=== PATIENT | male | born 1975 | race Caucasian/White ===

== ENCOUNTER 2023-03-03 21:11 | Observation (INO) | payer OTHER ==
--- NOTE | 2023-03-03 22:30 | ED ---
General Adult HPI - General Chief complaint: Psychiatric Symptoms Stated complaint: Petition Time Seen by Provider: 03/03/23 21:19 Source: patient, RN/MD Mode of arrival: ambulatory Limitations: no limitations - History of Present Illness Initial comments: Dictation was produced using [employer] dictation software. please excuse any grammatical, word or spelling errors. Chief Complaint: 47-year-old male presents to emergency department with suicidal ideation History of Present Illness: 47-year-old male presents emergency department for suicidal ideation. States that he stress of late. Patient brought in by EMS. Patient is a daily alcoholic. States that he drinks everyday however refuses to specify out much. Patient reports having had alcohol withdrawals in the past. States it is stressed out because of life. The ROS documented in this emergency department record has been reviewed and confirmed by me. Those systems with pertinent positive or negative responses have been documented in the HPI. All other systems are other negative and/or noncontributory. - Related Data Allergies Allergy/AdvReac Type Severity Reaction Status Date / Time No Known Allergies Allergy Verified 03/03/23 21:14 Review of Systems ROS Statement: Those systems with pertinent positive or pertinent negative responses have been documented in the HPI. ROS Other: All systems not noted in ROS Statement are negative. Past Medical History Past Medical History: No Reported History History of Any Multi-Drug Resistant Organisms: None Reported Additional Past Surgical History / Comment(s): neck Past Psychological History: Anxiety Smoking Status: Current every day smoker Past Alcohol Use History: Daily, Heavy Past Drug Use History: None Reported General Exam - General Exam Comments Initial Comments: PHYSICAL EXAM: General Impression: Alert and oriented x3, not in acute distress HEENT: Normocephalic atraumatic, extra-ocular movements intact, pupils equal and reactive to light bilaterally, mucous membranes moist. Cardiovascular: Heart regular rate and rhythm Chest: Able to complete full sentences, no retractions, no tachypnea Abdomen: abdomen soft, non-tender, non-distended, no organomegaly Musculoskeletal: Pulses present and equal in all extremities, no peripheral edema Motor: no focal deficits noted Neurological: CN II-XII grossly intact, no focal motor or sensory deficits noted Skin: Intact with no visualized rashes Psych: Flat affect Limitations: no limitations Course Vital Signs 03/03/23 21:14 Temperature 97.5 F L Pulse Rate 78 Respiratory 16 Rate Blood Pressure 136/64 O2 Sat by Pulse 97 Oximetry Medical Decision Making - Medical Decision Making Was pt. sent in by a medical professional or institution (, [facility], CREDIT CONTROLLER, urgent care, hospital, or residential...) When possible be specific @ -No Did you speak to anyone other than the patient for history (EMS, parent, family, police, friend...)? What history was obtained from this source @ -No Did you review nursing and triage notes (agree or disagree)? Why? @ -I reviewed and agree with nursing and triage notes Were old charts reviewed (outside hosp., previous admission, EMS record, old EKG, old radiological studies, urgent care reports/EKG's, residential records)? Report findings @ -No old charts were reviewed Differential Diagnosis (chest pain, altered mental status, abdominal pain women, abdominal pain men, vaginal bleeding, musculoskeletal, weakness, fever, dyspnea, syncope, headache, dizziness, GI bleed, back pain, seizure, CVA, palpatations, mental health)? @ -Differential Mental Health: Depression, anxiety, bipolar, psychosis, schizophrenia, borderline personality, situational depression, adjustment disorder, behavioral disorder, brain tumor, malingering, substance abuse, encephalopathy, medication reaction, dementia, hypothyroidism, degenerative neurologic disorder, lupus.... This is not meant to be all-inclusive list EKG interpreted by me (3pts min.). @ -None done X-rays interpreted by me (1pt min.). @ -None done CT interpreted by me (1pt min.). @ -None done U/S interpreted by me (1pt. min.). @ -None done What testing was considered but not performed or refused? (CT, X-rays, U/S, labs)? Why? @ -None What meds were considered but not given or refused? Why? @ -None Did you discuss the management of the patient with other professionals (professionals i.e. GAURAV Andre, CREDIT CONTROLLER, lab, RT, psych nurse, social work nurse, second chef, teacher, zoology technical officer, case preparer and liner)? Give summary @ -Case discussed with [facility] hospitalist group for admission Was smoking cessation discussed for >3mins.? @ -No Was critical care preformed (if so, how long)? @ -No Were there social determinants of health that impacted care today? How? (Homelessness, low income, unemployed, alcoholism, drug addiction, transportation, low edu. Level, literacy, decrease access to med. care, long term, rehab)? @ -Alcoholism Was there de-escalation of care discussed even if they declined (Discuss DNR or withdrawal of care, Hospice)? DNR status @ -No What co-morbidities impacted this encounter? (DM, HTN, Smoking, COPD, CAD, Cancer, CVA, ARF, Chemo, Hep., AIDS, mental health diagnosis, sleep apnea, m orbid obesity)? @ -None Was patient admitted / discharged? Hospital course, mention meds given and route, prescriptions, significant lab abnormalities, going to OR and other pertinent info. @ -47 y Old intoxicated male presents to the ER for suicidal ideation. Alcohol level is 423. Patient will be admitted for EtOH intoxication. Psychiatry consulted for suicidal ideation. Undiagnosed new problem with uncertain prognosis? @ -No Drug Therapy requiring intensive monitoring for toxicity (Heparin, Nitro, Insulin, Cardizem)? @ -No Were any procedures done? @ -No Diagnosis/symptom? Acute, or Chronic, or Acute on Chronic? Uncomplicated (without systemic symptoms) or Complicated (systemic symptoms)? @ -1. Suicidal ideation, 2. Alcohol intoxication Side effects of treatment? @ -No Exacerbation, Progression, or Severe Exacerbation? @ -No Poses a threat to life or bodily function? How? (Chest pain, [place], [place], pneumonia, PE, COPD, DKA, ARF, appy, cholecystitis, CVA, Diverticulitis, Homicidal, Suicidal, threat to staff... and all critical care pts) @ -yes - Lab Data Result diagrams: 03/03/23 23:06 03/03/23 23:06 Lab Results 03/03/23 03/03/23 Range/Units 23:06 23:06 WBC 9.3 (3.8-10.6) k/uL RBC 4.73 (4.30-5.90) m/uL Hgb 14.5 (13.0-17.5) gm/dL Hct 43.5 (39.0-53.0) % MCV 92.0 (80.0-100.0) fL MCH 30.7 (25.0-35.0) pg MCHC 33.3 (31.0-37.0) g/dL RDW 12.9 (11.5-15.5) % Plt Count 325 (150-450) k/uL MPV 6.7 Neutrophils % 43 % Lymphocytes % 47 % Monocytes % 4 % Eosinophils % 4 % Basophils % 1 % Neutrophils # 4.0 (1.3-7.7) k/uL Lymphocytes # 4.4 (1.0-4.8) k/uL Monocytes # 0.3 (0-1.0) k/uL Eosinophils # 0.4 (0-0.7) k/uL Basophils # 0.1 (0-0.2) k/uL Sodium 147 H (137-145) mmol/L Potassium 3.9 (3.5-5.1) mmol/L Chloride 112 H (98-107) mmol/L Carbon Dioxide 22 (22-30) mmol/L Anion Gap 13 mmol/L BUN 11 (9-20) mg/dL Creatinine 0.90 (0.66-1.25) mg/dL Est GFR (CKD-EPI)AfAm >90 (>60 ml/min/1.73 sqM) Est GFR (CKD-EPI)NonAf >90 (>60 ml/min/1.73 sqM) Glucose 101 H (74-99) mg/dL Calcium 8.6 (8.4-10.2) mg/dL Serum Alcohol 423 H* mg/dL Disposition Clinical Impression: Suicidal ideation, Alcohol intoxication Disposition: ADMITTED IP TO THIS [facility] Condition: Fair Referrals: Nonstaff,Physician [Primary Care Provider] - 1-2 days Decision Time: 02:00
[2023-03-03 23:37] LABS: Basophils # (A) 0.1 k/uL (0-0.2); Basophils % (A) 1 %; Eosinophils # (A) 0.4 k/uL (0-0.7); Eosinophils % (A) 4 %; HCT 43.5 % (39.0-53.0); HGB 14.5 gm/dL (13.0-17.5); Lymphocytes # (A) 4.4 k/uL (1.0-4.8); Lymphocytes % (A) 47 %; MCH 30.7 pg (25.0-35.0); MCHC 33.3 g/dL (31.0-37.0); Mean Platelet Volume 6.7; Monocytes # (A) 0.3 k/uL (0-1.0); Monocytes % (A) 4 %; Neutrophils % (A) 43 %; Platelet Count 325 k/uL (150-450); RBC 4.73 m/uL (4.30-5.90); RDW 12.9 % (11.5-15.5); WBC 9.3 k/uL (3.8-10.6)
[2023-03-03 23:48] LABS: African American GFR (CKD) >90 (>60 ml/min/1.73 sqM); Anion Gap 13 mmol/L; Blood Urea Nitrogen 11 mg/dL (9-20); Calcium 8.6 mg/dL (8.4-10.2); Carbon Dioxide 22 mmol/L (22-30); Chloride 112 mmol/L (98-107); Glucose 101 mg/dL (74-99); Non-African American GFR(CKD) >90 (>60 ml/min/1.73 sqM); Potassium 3.9 mmol/L (3.5-5.1); Sodium 147 mmol/L (137-145)
[2023-03-04 01:52] LABS: Alcohol 423 mg/dL
[2023-03-04] MEDS ORDERED: NALOXONE 0.4 MG/ML 1 ML VIAL IV PRN (02:37)
[2023-03-04] MEDS ORDERED: THIAMINE 100 MG/ML 2 ML VIAL IM STA (02:38)
[2023-03-04] MEDS ORDERED: FOLIC ACID 1 MG TAB PO STA (02:38)
[2023-03-04] MEDS ORDERED: LORazepam 2 MG/ML INJ IV PRN ×2 (02:39)
[2023-03-04] MEDS ORDERED: NICOTINE 21MG/24HR PATCH TRANSDERM STA (03:05)
[2023-03-04] MEDS: LORazepam 2 MG/ML INJ IV PRN ×3 (04:47→12:58)
[2023-03-04] MEDS: SODIUM CHLORIDE 0.9% 1,000 ML IV SCH (08:00)
--- NOTE | 2023-03-04 13:35 | P.HPIM ---
History of Present Illness H&P Date: 03/04/23 History of present illness; patient 47-year-old gentleman with past medical history significant for alcohol abuse up in the ER because of suicidal ideation. Patient admitted to drinking alcohol daily. Patient stated that he is very stressed in his life recently. Denies any auditory or visual hallucinations. Denies any homicidal thoughts. Patient admits to having thoughts to hurt himself, plan to jump into water to end his life. Because of this suicidal thoughts, patient was evaluated in the ER Initial lab work in the ER showed the pubis 9.3, hemoglobin 14.5, platelet count 25, sodium 147, potassium 3.9, BUN 11, creatinine 0.9, serum alcohol 423 Patient was admitted to medicine service REVIEW OF SYSTEMS: CONSTITUTIONAL: No fever, looks depressed, flat affect HEENT: No recent visual problems or hearing problems. Denied any sore throat. CARDIOVASCULAR: No chest pain, orthopnea, PND, no palpitations, no syncope. PULMONARY: No shortness of breath, no cough, no hemoptysis. GASTROINTESTINAL: No diarrhea, no nausea, no vomiting, no abdominal pain. NEUROLOGICAL: No headaches, no weakness, no numbness. HEMATOLOGICAL: Denies any bleeding or petechiae. GENITOURINARY: Denies any burning micturition, frequency, or urgency. MUSCULOSKELETAL/RHEUMATOLOGICAL: Denies any joint pain, swelling, or any muscle pain. ENDOCRINE: Denies any polyuria or polydipsia. The rest of the 14-point review of systems is negative. PHYSICAL EXAMINATION: GENERAL: The patient is alert and oriented x3, not in any acute distress. Well developed, well nourished. HEENT: Pupils are round and equally reacting to light. EOMI. No scleral icterus. No conjunctival pallor. Normocephalic, atraumatic. No pharyngeal erythema. No thyromegaly. CARDIOVASCULAR: S1 and S2 present. No murmurs, rubs, or gallops. PULMONARY: Chest is clear to auscultation, no wheezing or crackles. ABDOMEN: Soft, nontender, nondistended, normoactive bowel sounds. No palpable organomegaly. MUSCULOSKELETAL: No joint swelling or deformity. EXTREMITIES: No cyanosis, clubbing, or pedal edema. NEUROLOGICAL: Gross neurological examination did not reveal any focal deficits. SKIN: No rashes. Assessment and plan Alcohol detox Suicidal ideation Major depression Monitor vital signs Monitor CMP Elopement precautions Suicide precautions Continue CIWA protocol Continue thiamine and folic acid Continue home meds Consult psychiatry DVT prophylaxis: Past Medical History Past Medical History: No Reported History History of Any Multi-Drug Resistant Organisms: None Reported Additional Past Surgical History / Comment(s): neck Past Psychological History: Anxiety Smoking Status: Current every day smoker Past Alcohol Use History: Daily, Heavy Past Drug Use History: None Reported Medications and Allergies Home Medications Medication Instructions Recorded Confirmed Type No Known Home Medications 03/04/23 03/04/23 History Allergies Allergy/AdvReac Type Severity Reaction Status Date / Time No Known Allergies Allergy Verified 03/04/23 06:29 Physical Exam Vitals: Vital Signs Temp Pulse Pulse Resp BP BP Pulse Ox 03/04/23 08:11 20 03/04/23 07:09 98.3 F 70 18 97/62 97 03/04/23 04:16 97.9 F 64 20 106/64 98 03/04/23 03:56 89 18 138/72 97 03/04/23 02:00 82 18 128/78 98 03/03/23 21:14 97.5 F L 78 16 136/64 97 Intake and Output 03/03/23 03/04/23 03/04/23 22:59 06:59 14:59 Other: Weight 75.75 kg 75.75 kg Results CBC & Chem 7: 03/03/23 23:06 03/03/23 23:06 Labs: Abnormal Lab Results - Last 24 Hours (Table) 03/03/23 Range/Units 23:06 Sodium 147 H (137-145) mmol/L Chloride 112 H (98-107) mmol/L Glucose 101 H (74-99) mg/dL Serum Alcohol 423 H* mg/dL
[2023-03-04] MEDS: ACETAMINOPHEN TAB 325 MG TAB PO PRN (19:59)
[2023-03-05] MEDS: LORazepam 2 MG/ML INJ IV PRN (03:42)
[2023-03-05] MEDS: SODIUM CHLORIDE 0.9% 1,000 ML IV SCH ×4 (05:12→11:23)
[2023-03-05] MEDS ORDERED: THIAMINE 100 MG TAB PO SCH (09:00)
[2023-03-05] MEDS: ACETAMINOPHEN TAB 325 MG TAB PO PRN (12:11)
--- NOTE | 2023-03-05 12:33 | P.PN ---
Subjective Progress Note Date: 03/05/23 patient 47-year-old gentleman with past medical history significant for alcohol abuse up in the ER because of suicidal ideation. Patient admitted to drinking alcohol daily. Patient stated that he is very stressed in his life recently. Denies any auditory or visual hallucinations. Denies any homicidal thoughts. Patient admits to having thoughts to hurt himself, plan to jump into water to end his life. Because of this suicidal thoughts, patient was evaluated in the ER Initial lab work in the ER showed the pubis 9.3, hemoglobin 14.5, platelet count 25, sodium 147, potassium 3.9, BUN 11, creatinine 0.9, serum alcohol 423 Patient was admitted to medicine service 03/05. Patient seen and examined. Sitter in place. Patient complaining of seeing cats in the room. Still has thoughts of hurting himself REVIEW OF SYSTEMS: CONSTITUTIONAL: No fever, no malaise,. CARDIOVASCULAR: No chest pain, no palpitations, no syncope. PULMONARY: No shortness of breath, no cough, GASTROINTESTINAL: No diarrhea, no nausea, no vomiting, no abdominal pain. NEUROLOGICAL: No headaches, no weakness, PHYSICAL EXAMINATION: GENERAL: The patient is alert and oriented x3, not in any acute distress. Well developed, well nourished. HEENT: Pupils are round and equally reacting to light. EOMI. No scleral icterus. No conjunctival pallor. Normocephalic, atraumatic. No pharyngeal erythema. No thyromegaly. CARDIOVASCULAR: S1 and S2 present. No murmurs, rubs, or gallops. PULMONARY: Chest is clear to auscultation, no wheezing or crackles. ABDOMEN: Soft, nontender, nondistended, normoactive bowel sounds. No palpable organomegaly. MUSCULOSKELETAL: No joint swelling or deformity. EXTREMITIES: No cyanosis, clubbing, or pedal edema. NEUROLOGICAL: Gross neurological examination did not reveal any focal deficits. SKIN: No rashes. Assessment and plan Alcohol detox Suicidal ideation Major depression Monitor vital signs Monitor CBC Monitor CMP Elopement precautions Suicide precautions Continue CIWA protocol Continue thiamine and folic acid Continue home meds Consult psychiatry Objective - Vital Signs Vital signs: Vital Signs Temp 99.4 F 03/05/23 07:15 Pulse 82 03/05/23 08:00 Resp 18 03/05/23 08:00 BP 124/83 03/05/23 07:15 Pulse Ox 99 03/05/23 07:15 FiO2 Intake & Output 03/04/23 03/05/23 03/05/23 18:59 06:59 18:59 Intake Total 500 Balance 500 Intake: Oral 500 Other: Voiding Method Toilet # Voids 2 1 - Labs CBC & Chem 7: 03/03/23 23:06 03/03/23 23:06
[2023-03-05 14:03] VITALS: BP 127/80; PULSE 75; RESP 17; TEMP 97.6
--- NOTE | 2023-03-05 14:15 | P.CN ---
Psychiatric Consult - . Consult date: 03/05/23 Consult:: 03/05/23 14:14 IDENTIFYING DATA: This patient is a single, unemployed, 47-year-old male with significant history of alcohol use disorder and anxiety who presents to our hospital by EMS for suicidal ideation. HISTORY OF PRESENT ILLNESS: The patient presented to the hospital on 03/03/2023, brought in by EMS for suicidal ideation. The patient was noted to be grossly intoxicated with a blood alcohol level of 423. Psychiatry has been consulted for evaluation of suicidal ideation. Upon evaluation by the psychiatrist, the patient is denying any suicidal or homicidal ideation, intention, and/or plan. He reports that he has been drinking up to a fifth of liquor every day for the past few weeks. The patient is overtly denying any intention to try to kill himself over understands that his alcohol and desired slowly killing him. However, the patient was offered treatment options such as inpatient substance abuse rehabilitation or inpatient psychiatric admission in preparation for substance abuse rehabilitation, however the patient is denying the need for these. He expresses no desire at this time for any inpatient substance abuse or mental health treatment. The patient reports one prior attempt at suicide back in 2016 by walking in front of traffic. He does report back then that he has been drinking. The patient reports that he was sober for 10 years prior to relapsing 7 years ago. He reports that he was sober for 6 months between September and this February. He however relapsed due to work related stressors. He reports that he has been to rehab twice before. The patient reports no auditory hallucinations. He does report visual hallucinations in the form of "cats running along the hospital floor." He is denying any delusions at this time. The patient reports that he constantly feels like he needs to drink and that he is desiring to leave the hospital in order to smoke a cigarette. He expresses understanding of the risks of being in withdrawal including seizure, and . He is uninterested at this time for continued inpatient treatment. He is currently pre-contemplative and regarding his substance abuse. PAST PSYCHIATRIC HISTORY: Patient has a history of depression/anxiety. Patient's home medications include Lexapro, Catapres, Inderal, and Restoril. He reports one prior inpatient psychiatric hospitalization in 2016. He reports no current outpatient psychiatric treatment. He reports one prior attempts at suicide by walking into traffic in 2016. PAST MEDICAL HISTORY: Past Medical History: No Reported History History of Any Multi-Drug Resistant Organisms: None Reported Additional Past Surgical History / Comment(s): neck Past Psychological History: Anxiety Smoking Status: Current every day smoker Past Alcohol Use History: Daily, Heavy Past Drug Use History: None Reported ALLERGIES: NO KNOWN DRUG ALLERGIES CHEMICAL DEPENDENCY HISTORY: The patient reports that he has been drinking up to a fifth of liquor per day since the beginning of February. He has been to rehab twice before. He smokes 2 packs per day. He denies any illicit drug use. He reports very rare marijuana use. FAMILY PSYCHIATRIC/SUBSTANCE USE HISTORY: No reported family psychiatric history SOCIAL HISTORY: Patient was born and raised in [place], [place]. He is single, never , and has no children. 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 He reports no mosque affiliation. He denies any service. MENTAL STATUS EXAM: General Appearance: Patient appears to be stated age is alert, pleasant, and cooperative. Patient appears to have fair hygiene and grooming wearing hospital gown with fair eye contact. Behavior: Patient is calmly lying in bed without any agitated behavior. Speech: Patient's speech is fluent and nonpressured. Mood/Affect: Patient reports their mood is "I just want my cigarette", affect is slightly irritable. Suicidality/Homicidality: Patient is denying any suicidal or homicidal ideatio n, intention, and/or plan. Perceptions: Patient does report visual hallucinations in the form of cats running around. No auditory hallucinations. Though content/process: There is no evidence of any delusional thought content and thought process is linear and goal-directed. Memory and concentration: AOX3, grossly intact for the purposes of this session. Can spell "WORLD" backwards Judgment and insight: Poor IMPRESSIONS: Alcohol use disorder, severe Alcohol-induced mood disorder Tobacco use disorder PLAN: -Continue your medical management. -At this time patient DOES NOT meet criteria for inpatient psychiatric admission. Primary diagnosis is the patient's alcohol use disorder. Motivational interviewing took place with the patient however he is pre- contemplative and regarding his current alcohol addiction. This provider discussed at length options for alcohol use disorder treatment including medications, rehabilitation (both outpatient and inpatient), and Alcoholics Anonymous, however patient appears to be pre-contemplative. -Approximately 20 minutes were spent attempting motivational interviewing. Patient is not desiring change. -Patient DOES have decision making capacity at this time and is able to reason through and communicate/appreciate the risks, benefits and alternatives to treatment. The patient identified the risk of seizure and from untreated alcohol withdrawal. -Would recommend the following medication changes/additions: No medication recommendations. Psychiatric intervention will be limited as the patient is actively drinking and uninterested in quitting. -Discontinue 1:1 sitter for safety. Patient is not suicidal. He is future and goal oriented (to get more acohol and smoke cigarettes) -Psychiatry will sign off at this point, please contact with any questions. 03/05/23 14:14
[2023-03-05] MEDS ORDERED: PANTOPRAZOLE 40 MG TABLET PO SCH (17:30)
[2023-03-06] MEDS ORDERED: ESCITALOPRAM 20 MG TAB PO SCH (09:00)
--- NOTE | 2023-03-06 09:12 | P.DS ---
Providers Date of admission: 03/04/23 02:38 Expected date of discharge: 03/06/23 Attending physician: Abril Kelley Consults: 03/04/23 02:37 Consult Physician Routine Consulting Provider: Vitaly Chavez Reason/Comments: suicidal Do you want consulting provider notified?: Already Contacted Primary care physician: Physician Nonstaff Hospital Course: Discharge diagnoses; Alcohol detox Suicidal ideation Major depression Hospital course; patient 47-year-old gentleman with past medical history significant for alcohol abuse up in the ER because of suicidal ideation. Patient admitted to drinking alcohol daily. Patient stated that he is very stressed in his life recently. Denies any auditory or visual hallucinations. Denies any homicidal thoughts. Patient admits to having thoughts to hurt himself, plan to jump into water to end his life. Because of this suicidal thoughts, patient was evaluated in the E R Initial lab work in the ER showed the pubis 9.3, hemoglobin 14.5, platelet count 25, sodium 147, potassium 3.9, BUN 11, creatinine 0.9, serum alcohol 423 Patient was admitted to medicine service 03/05. Patient seen and examined. Sitter in place. Psychiatry evaluated the patient recommended that patient at this time does not meet inpatient criteria for psych admission, they recommended discontinuing sitter, recommended giving patient resources for alcohol rehab outpatient. Patient discharged in stable condition PHYSICAL EXAMINATION: GENERAL: The patient is alert and oriented x3, not in any acute distress. Well developed, well nourished. HEENT: Pupils are round and equally reacting to light. EOMI. No scleral icterus. No conjunctival pallor. Normocephalic, atraumatic. No pharyngeal erythema. No thyromegaly. CARDIOVASCULAR: S1 and S2 present. No murmurs, rubs, or gallops. PULMONARY: Chest is clear to auscultation, no wheezing or crackles. ABDOMEN: Soft, nontender, nondistended, normoactive bowel sounds. No palpable organomegaly. MUSCULOSKELETAL: No joint swelling or deformity. EXTREMITIES: No cyanosis, clubbing, or pedal edema. NEUROLOGICAL: Gross neurological examination did not reveal any focal deficits. SKIN: No rashes. Patient Condition at Discharge: Fair Plan - Discharge Summary Discharge Rx Participant: No New Discharge Prescriptions: New Thiamine [Vitamin B-1] 100 mg PO DAILY #30 tablet Folic Acid 1 mg PO DAILY #30 tablet Continue Escitalopram [Lexapro] 20 mg PO DAILY Propranolol [Inderal] 40 mg PO BID Temazepam [Restoril] 15 mg PO HS PRN PRN Reason: Insomnia cloNIDine HCL [Catapres] 0.1 mg PO Q8HR Discharge Medication List Escitalopram [Lexapro] 20 mg PO DAILY 03/05/23 [History] Folic Acid 1 mg PO DAILY #30 tablet 03/05/23 [Rx] Propranolol [Inderal] 40 mg PO BID 03/05/23 [History] Temazepam [Restoril] 15 mg PO HS PRN 03/05/23 [History] Thiamine [Vitamin B-1] 100 mg PO DAILY #30 tablet 03/05/23 [Rx] cloNIDine HCL [Catapres] 0.1 mg PO Q8HR 03/05/23 [History] Follow up Appointment(s)/Referral(s): Nonstaff,Physician [Primary Care Provider] - 1-2 days Discharge Disposition: HOME SELF-CARE
== END 2023-03-05 14:28 | disposition home or self-care (01) ==
LOC: EC 21:11 → 4SSUR 03-04 02:38
PROVIDERS: ADMIT Hospitalist; ATTEND Hospitalist
DX: F10.24 Alcohol dependence with alcohol-induced mood disorder (principal); F10.220 Alcohol dependence with intoxication, uncomplicated; F32.9 Major depressive disorder, single episode, unspecified; F41.9 Anxiety disorder, unspecified; F17.210 Nicotine dependence, cigarettes, uncomplicated; Z56.0 Unemployment, unspecified; Y90.8 Blood alcohol level of 240 mg/100 ml or more
CPT/HCPCS: 96376 ×2; 96374; 82075; 96372; 99285; 36415; 80048; 85025; G0378 ×2; G0480; S4990; J2060 ×2; J3411; 80320

== ENCOUNTER 2024-02-12 22:15 | Inpatient (IN) | payer MEDICAID, OTHER ==
--- NOTE | 2024-02-12 22:50 | ED ---
Psych HPI - General Chief Complaint: Psychiatric Symptoms Stated Complaint: Petition Time Seen by Provider: 02/12/24 22:33 Source: patient, police Mode of arrival: ambulatory - History of Present Illness Initial Comments: This patient is 48-year-old man who complains of severe depression and feeling suicidal. The patient states that he found his girlfriend by overdose on January 23 and that he has been depressed since that time and having recurrent thoughts of harming himself. MD Complaint: suicidal ideation, feels depressed Onset/Timin -: week(s) Associated Psychiatric Symptoms: suicidal ideation History of same: Yes Quality: constant Improves With: none Worsens With: none Associated Symptoms: denies other symptoms Treatments Prior to Arrival: none - Related Data Home Medications Medication Instructions Recorded Confirmed Escitalopram [Lexapro] 20 mg PO DAILY 03/05/23 03/05/23 Propranolol [Inderal] 40 mg PO BID 03/05/23 03/05/23 Temazepam [Restoril] 15 mg PO HS PRN 03/05/23 03/05/23 cloNIDine HCL [Catapres] 0.1 mg PO Q8HR 03/05/23 03/05/23 Previous Rx's Medication Instructions Recorded Folic Acid 1 mg PO DAILY #30 tablet 03/05/23 Thiamine [Vitamin B-1] 100 mg PO DAILY #30 tablet 03/05/23 Allergies Allergy/AdvReac Type Severity Reaction Status Date / Time No Known Allergies Allergy Verified 02/12/24 22:29 Review of Systems ROS Statement: Those systems with pertinent positive or pertinent negative responses have been documented in the HPI. ROS Other: All systems not noted in ROS Statement are negative. Constitutional: Denies: fever, chills Respiratory: Denies: cough, dyspnea Cardiovascular: Denies: chest pain, palpitations, edema Gastrointestinal: Denies: abdominal pain, vomiting, diarrhea Genitourinary: Denies: dysuria, hematuria Musculoskeletal: Denies: back pain Skin: Denies: rash Neurological: Denies: headache, weakness Psychiatric: Reports: depression, suicidal thoughts. Denies: auditory hallucinations, visual hallucinations Past Medical History Past Medical History: No Reported History History of Any Multi-Drug Resistant Organisms: None Reported Additional Past Surgical History / Comment(s): neck Past Psychological History: Anxiety, Depression Smoking Status: Current every day smoker, Vaper Past Alcohol Use History: Daily, Heavy Past Drug Use History: None Reported General Exam General appearance: alert, in no apparent distress Head exam: Present: atraumatic, normocephalic Eye exam: Present: normal appearance. Absent: scleral icterus, conjunctival injection ENT exam: Present: normal exam Neck exam: Present: normal inspection Respiratory exam: Present: normal lung sounds bilaterally. Absent: respiratory distress, wheezes, rales, rhonchi, stridor, accessory muscle use Cardiovascular Exam: Present: regular rate, normal rhythm, normal heart sounds. Absent: systolic murmur, diastolic murmur, rubs, gallop GI/Abdominal exam: Present: soft. Absent: distended, tenderness, guarding, rebound, rigid, mass Extremities exam: Present: normal inspection, normal capillary refill. Absent: pedal edema, calf tenderness Back exam: Present: normal inspection. Absent: CVA tenderness (R), CVA tenderness (L) Neurological exam: Present: alert Psychiatric exam: Present: depressed, suicidal ideation. Absent: agitated, anxious, flat affect, manic Skin exam: Present: warm, dry, intact, normal color. Absent: rash Course Vital Signs 02/12/24 02/12/24 02/13/24 22:21 23:01 05:23 Temperature 97.8 F Pulse Rate 99 88 Pulse Rate [ Right] Respiratory 16 18 Rate Blood Pressure 88/64 94/55 111/76 Blood Pressure [Right Arm] O2 Sat by Pulse 98 98 Oximetry 02/13/24 02/13/24 02/13/24 07:25 07:46 08:37 Temperature 97.6 F 98.4 F 97.8 F Pulse Rate 77 92 Pulse Rate [ 86 Right] Respiratory 20 16 18 Rate Blood Pressure 106/70 112/76 Blood Pressure 110/62 [Right Arm] O2 Sat by Pulse 100 99 Oximetry Medical Decision Making - Medical Decision Making Was pt. sent in by a medical professional or institution (, PA, JEWEL BEARING DRILLER, urgent care, hospital, or intermediate...) When possible be specific @ -[No] Did you speak to anyone other than the patient for history (EMS, parent, family, police, friend...)? What history was obtained from this source @ -[No] Did you review nursing and triage notes (agree or disagree)? Why? @ -[I reviewed and agree with nursing and triage notes] Were old charts reviewed (outside hosp., previous admission, EMS record, old E KG, old radiological studies, urgent care reports/EKG's, intermediate records)? Report findings @ -[No old charts were reviewed] Differential Diagnosis (chest pain, altered mental status, abdominal pain women, abdominal pain men, vaginal bleeding, weakness, fever, dyspnea, syncope, headache, dizziness, GI bleed, back pain, seizure, CVA, palpatations, mental health, musculoskeletal)? @ -[Differential Mental Health Depression, anxiety, bipolar, psychosis, schizophrenia, borderline personality, situational depression, adjustment disorder, behavioral disorder, brain tumor, malingering, substance abuse, encephalopathy, medication reaction, dementia, hypothyroidism, degenerative neurologic disorder, lupus.... This is not meant to be all-inclusive list EKG interpreted by me (3pts min.). @ -[As above] X-rays interpreted by me (1pt min.). @ -[None done] CT interpreted by me (1pt min.). @ -[None done] U/S interpreted by me (1pt. min.). @ -[None done] What testing was considered but not performed or refused? (CT, X-rays, U/S, labs)? Why? @ -[None] What meds were considered but not given or refused? Why? @ -[None] Did you discuss the management of the patient with other professionals (professionals i.e. , PA, JEW[employer] BEARING DRILLER, lab, RT, psych nurse, licensed clinical social worker, caddy packer, teacher, upscale security officer, vocational case manager)? Give summary @ -[Case discussed with EPS personnel and after they staffed with psychiatrist will admit for further care Was smoking cessation discussed for >3mins.? @ -[No] Was critical care preformed (if so, how long)? @ -[No] Were there social determinants of health that impacted care today? How? (Homelessness, low income, unemployed, alcoholism, drug addiction, transportat ion, low edu. Level, literacy, decrease access to med. care, shelter, rehab)? @ -[No] Was there de-escalation of care discussed even if they declined (Discuss DNR or withdrawal of care, Hospice)? DNR status @ -[No] What co-morbidities impacted this encounter? (DM, HTN, Smoking, COPD, CAD, Cancer, CVA, ARF, Chemo, Hep., AIDS, mental health diagnosis, sleep apnea, morbid obesity)? @ -[None] Was patient admitted / discharged? Hospital course, mention meds given and route, prescriptions, significant lab abnormalities, going to OR and other pertinent info. @ -[hospital course] Undiagnosed new problem with uncertain prognosis? @ -[No] Drug Therapy requiring intensive monitoring for toxicity (Heparin, Nitro, Insulin, Cardizem)? @ -[No] Were any procedures done? @ -[No] Diagnosis/symptom? @ -[Mood disorder Suicidal ideation Alcohol intoxication Acute, or Chronic, or Acute on Chronic? @ -[Acute Uncomplicated (without systemic symptoms) or Complicated (systemic symptoms)? @ -[Uncomplicated Side effects of treatment? @ -[No] Exacerbation, Progression, or Severe Exacerbation? @ -[No] Poses a threat to life or bodily function? How? (Chest pain, [place], [place], pneumonia, PE, COPD, DKA, ARF, appy, cholecystitis, CVA, Diverticulitis, Homicidal, Suicidal, threat to staff... and all critical care pts) @ -[Yes, suicidal ideation may progress to attempt/completion - Lab Data Result diagrams: 02/27/24 12:12 02/27/24 12:12 Lab Results 02/13/24 Range/Units 06:28 SARS-CoV-2 (PCR) Not Detected (Not Detectd) Disposition Clinical Impression: Suicidal ideation, Alcohol intoxication Disposition: ADMITTED IP TO THIS HOSP Condition: Fair Is patient prescribed a controlled substance at d/c from ED?: No
[2024-02-13] MEDS: NICOTINE 21MG/24HR PATCH TRANSDERM STA (04:42)
[2024-02-13] MEDS ORDERED: LORazepam 1 MG TAB PO PRN ×2 (07:26)
[2024-02-13] MEDS ORDERED: LORazepam 2 MG/ML INJ IM PRN (07:26)
[2024-02-13] MEDS ORDERED: HALOPERIDOL LACTATE 5 MG/ML 1 ML VIAL IM PRN (07:26)
[2024-02-13] MEDS ORDERED: haloperidoL 5 MG TAB PO PRN (07:26)
[2024-02-13] MEDS ORDERED: traZODone HCL 50 MG TAB PO PRN ×2 (07:26→11:20)
[2024-02-13] MEDS ORDERED: MAGNESIUM HYDROXIDE 2,400 MG/30 ML CUP PO PRN (07:26)
--- NOTE | 2024-02-13 11:42 | P.HP ---
Psychiatric H&P - . H&P Date: 02/13/24 History & Physical: Allergies Allergy/AdvReac Type Severity Reaction Status Date / Time No Known Allergies Allergy Verified 02/12/24 22:29 Vital Signs Temp 98.4 F 02/13/24 07:46 Pulse 77 02/13/24 07:46 Resp 16 02/13/24 07:46 BP 106/70 02/13/24 07:46 Pulse Ox 100 02/13/24 07:46 FiO2 Intake & Output 02/12/24 02/13/24 02/13/24 18:59 06:59 18:59 Weight 72.575 kg Laboratory Last Values SARS-CoV-2 (PCR) Not Detected (Not Detectd) 02/13/24 06:28 02/13/24 08:29 IDENTIFYING DATA: Patient is a 48 year old male, who is homeless, living in his car, in his parents driveway. Single, unemployed, no children HPI: Patient presented to the hospital on 02/12. As per EPS note, "Pt presents involuntarily, petitioned by the police; "Stated I just want to . If I had a gun I'd kill myself. Threatened to harm his sister while on the phone /c the Suicide Hotline." Pt admits to statements in the Petition. Pt admits to audio and visual hallucinations; pt states he "hears voices and sees animals, mostly cats, running around me." Pt states he cannot understand the voices. Stressors are pt's girlfriend of 8 months of an intentional heroin overdose November and pt found her, and pt has been kicked out of his father's house by his older sister after pt's Father ended up in the hospital. Pt states "I don't want to live anymore. I've been at war /c my sister for a very long time. I basically live in my Dad's driveway and I have an extension cord going from my car to my Dad's house. Recently I left to go do some stuff and when I came back my sister stole my extension cord. When my Dad went to the hospital, my sister got POA over my Dad and locked me out of his house." Pt states his sister lives somewhere else, however "I've been waiting for her to show up at my Dad's house so I can take care of her. At this point I'd kill her /c my bare hands. I think my Dad is now at [facility] and my sister has blocked me from seeing him. I've been wanting to kill myself for quite a while; since November 23 when Marci (pt's girlfriend of 8 months) and I've wanted to ever since. If it wasn't for me she'd be alive. She of a heroin overdose and I found her. It was intentional; she told me she wanted to the day before and asked me to get her some heroin and I refused. Her dealer delivered it to her. If I knew where he was I'd kill him too." Upon todays assessment, he stated since his girlfriend of a heroine overdose, he has not wanted to live anymore. He states he has always had anxiety, and has increasing depression, since he had found his girlfriend. He states that he misses her very much. He stated that he wishes his sister was , and "she's a bitch", and that he would kill her if he had the chance. Patient denies any suicidal or homicidal ideations intent or plan. At this time, patient is denying auditory and visual hallucinations. Patient denies any flight of ideas racing thoughts and increased in goal directed behavior. Patient admits to using alcohol, and smoking 3 packs of cigarettes a day. PAST PSYCHIATRIC HISTORY: Patient states that he has been in inpatient substance abuse treatment several times, the last time being one year ago. Was hospitalized at [facility] for 2 week last month. Patient denies being on any psychiatric medications. States he never took them after he got out of [facility] because he did not want to. Patient denies any psychiatric outpatient follow-up. Patient states he has tried to kill himself by hanging. PMH:As per ER note ALLERGIES: as per EMR CHEMICAL DEPENDENCY HISTORY: as per HPI FAMILY PSYCHIATRIC/SUBSTANCE USE HISTORY: denies SOCIAL HISTORY: Patient was born and raised in [place], [place]. Patient states he went to high school, homeless, lives in his car in his dad's driveway. Is single, and has no children. Claims he has been to intermediate for OWI. MENTAL STATUS EXAM: General Appearance: Patient appears to be older than stated age. Has short hair and a big rivera. Laying in bed, with no eye contact. Patient appears to have poor hygiene and grooming. Behavior: Patient is laying in bed without any agitated behavior. [place] Speech: Patient's speech is fluent and nonpressured. Evasive and guarded Mood/Affect: Patient reports their mood is depressed, affect is congruent and constricted. Suicidality/Homicidality: Patient endorsing homicidal ideation toward his sister Endorsing suicidal ideations no intent or plan Perceptions: Patient denies any visual hallucinations and denies any auditory hallucinations today Though content/process: There is no evidence of any delusional thought content and thought process is concrete and guarded. Memory and concentration: AOX3, grossly intact for the purposes of this session. Can spell "WORLD" backwards Judgment and insight: poor STRENGTHS/WEAKNESSES: strength is that patient is resilient. Weakness is that patient has poor judgment and is impulsive INTELLECT: average IMPRESSIONS: major depressive disorder, without psychotic features anxiety disorder, unspecified alcohol use disorder, severe nicotine dependance homelessness PLAN: -Patient is admitted under involuntary status to MHU for stabilization of psychiatric symptoms and safety. Patient has not signed adult voluntary form or medication consent and is placed in patient's chart. A second certification was completed and along with petition will be filed for court. -Medications : Will start patient on Librium 20mg TID with to plan to taper down for etoh withdrawal. Zoloft 50mg daily for mood/anxiety, Trazodone 50mg qhs prn for sleep -Ativan and Haldol PRN for agitation/aggression -thiamine, MVM for etoh use -[facility] protocol with Ativan PRN for ETOH withdrawal -Patient was counselled on substance abuse and desired to cut back on use -Patient was informed of the risks, benefits and side effects of the medication. Patient stated he will not take medications. -Internal Medicine consult to perform medical evaluation and physical. -NRT - nicotine patch - on board for discharge planning. Encourage patient to participate in groups to work on coping skills. Will await deferral and court date. Will need to complete a duty to warn due to homicidal threats toward sister. 02/13/24 11:19 02/13/24 11:41
[2024-02-13] MEDS: FOLIC ACID 1 MG TAB PO SCH (14:14)
[2024-02-13] MEDS: MULTIVITAMINS, THERA 1 EACH TAB PO SCH (14:14)
[2024-02-13] MEDS: NICOTINE 21MG/24HR PATCH TRANSDERM SCH (14:15)
[2024-02-13] MEDS: THIAMINE 100 MG TAB PO SCH (14:15)
[2024-02-14] MEDS: SERTRALINE 50 MG TAB PO SCH (08:45)
--- NOTE | 2024-02-14 10:54 | P.PN ---
Progress Note - Text Progress Note Date: 02/14/24 Interval History: Patient was seen in his room and was refusing to speak with teletypewriter installer today. The patient was laying in bed, covered up. He has not been going to meals or groups. He also isolates to his room. He has his deferral with his state's attorney yesterday, and he refused to speak with her. He stated that he does not want treatment, and he will not take medication. Patient has not been taking any medications. MENTAL STATUS EXAM: General Appearance: Patient appears to be older than stated age. Has short hair and a big rivera. Laying in bed, with no eye contact. Patient appears to have poor hygiene and grooming. Behavior: Patient is laying in bed with agitated behavior. [place] and Irrita violeta. Speech: Patient's speech is fluent and nonpressured. Evasive and guarded Mood/Affect: Patient is not cooperative with assessment. affect is congruent and constricted. Suicidality/Homicidality: Patient is not cooperative with assessment Perceptions: Patient is not cooperative with assessment Though content/process:Patient is not cooperative with assessment and thought process is concrete and guarded. Memory and concentration: AOX3, grossly intact for the purposes of this session. Judgment and insight: poor IMPRESSIONS: major depressive disorder, without psychotic features anxiety disorder, unspecified alcohol use disorder, severe nicotine dependance homelessness PLAN: -Patient is admitted under involuntary status to MHU for stabilization of psychiatric symptoms and safety. Patient has not signed adult voluntary form or medication consent and is placed in patient's chart. A second certification was completed and along with petition will be filed for court. -Medications : Librium 20mg TID with to plan to taper down for etoh withdrawal. Zoloft 50mg daily for mood/anxiety, Trazodone 50mg qhs prn for sleep -Ativan and Haldol PRN for agitation/aggression -thiamine, MVM for etoh use -CIWA protocol with Ativan PRN for ETOH withdrawal -NRT - nicotine patch -SW on board for discharge planning. Encourage patient to participate in groups to work on coping skills. Will await court date. Hearing is scheduled for February 18. Will need to complete a duty to warn due to homicidal threats toward sister.
--- NOTE | 2024-02-15 05:11 | P.PN ---
Progress Note - Text Progress Note Date: 02/14/24 Patient refused to leave his room for medical evaluation attempted at 23:30 February 13
--- NOTE | 2024-02-15 12:20 | P.PN ---
Subjective Progress Note Date: 02/15/24 Principal diagnosis: IMPRESSIONS: major depressive disorder, without psychotic features anxiety disorder, unspecified alcohol use disorder, severe nicotine dependance homelessness Rule out personality disorder Patient Name: Major Lui Date of : 75 Patient Status: Inpatient Attending Provider: Trey Nash Date: 02/15/2024 initialization Date: 02/14/24 08:40 Interval History: Patient was seen in his room and was refusing to speak with typewriter assembly and parts inspector today. The patient was laying in bed, covered up. He has not been going to meals or groups. He also isolates to his room. Patient became very angry and demanded to be discharged to be left alone Reviewing the chart reveals that: He has his deferral with his divorce attorney yesterday, and he refused to speak with her. He stated that he does not want treatment, and he will not take medication. Patient has not been taking any medications. MENTAL STATUS EXAM: General Appearance: Patient appears to be older than stated age. Has short hair and a big rivera. Laying in bed, with no eye contact. Patient appears to have poor hygiene and grooming. Behavior: Patient is laying in bed with agitated behavior. [place] and Irritated. Speech: Patient's speech is fluent and nonpressured. Evasive and guarded Mood/Affect: Patient is not cooperative with assessment. affect is congruent and constricted. Suicidality/Homicidality: Patient is not cooperative with assessment Perceptions: Patient is not cooperative with assessment Though content/process:Patient is not cooperative with assessment and thought process is concrete and guarded. Memory and concentration: AOX3, grossly intact for the purposes of this session. Judgment and insight: poor IMPRESSIONS: As noted in the chart major depressive disorder, without psychotic features anxiety disorder, unspecified alcohol use disorder, severe nicotine dependance homelessness PLAN: Agree with the current treatment plan as outlined by Dr. Nash -Patient is admitted under involuntary status to MHU for stabilization of psychiatric symptoms and safety. Patient has not signed adult voluntary form or medication consent and is placed in patient's chart. A second certification was completed and along with petition will be filed for court. -Medications : Librium 20mg TID with to plan to taper down for etoh withdrawal. Zoloft 50mg daily for mood/anxiety, Trazodone 50mg qhs prn for sleep -Ativan and Haldol PRN for agitation/aggression -thiamine, MVM for etoh use -CIWA protocol with Ativan PRN for ETOH withdrawal -NRT - nicotine patch -SW on board for discharge planning. Encourage patient to participate in groups to work on coping skills. Will await court date. Hearing is scheduled for February 18. Will need to complete a duty to warn due to homicidal threats toward sister. Jj Veloz MD Active Medications Generic Name Dose Route Start Last Admin Trade Name Freq PRN Reason Stop Dose Admin Acetaminophen 650 mg 02/13/24 07:26 Acetaminophen Tab 325 Mg Tab PO Q4HR PRN Mild Pain (Scale 1 to 3) Al Hydroxide/Mg Hydroxide 30 ml 02/13/24 07:26 Mag Hydrox/Al Hydrox/Simeth 355 Ml Bottle PO Q4HR PRN GI Upset Chlordiazepoxide HCl 20 mg 02/13/24 11:30 02/15/24 08:15 Chlordiazepoxide 10 Mg Cap PO Not Given TID SUSU Folic Acid 1 mg 02/13/24 09:00 02/15/24 08:15 Folic Acid 1 Mg Tab PO Not Given DAILY SUSU Haloperidol 5 mg 02/13/24 07:26 Haloperidol 5 Mg Tab PO Q4HR PRN Agitation Haloperidol Lactate 5 mg 02/13/24 07:26 Haloperidol Lactate 5 Mg/Ml 1 Ml Vial IM Q4HR PRN Severe Agitation Ibuprofen 600 mg 02/13/24 07:26 Ibuprofen 600 Mg Tab PO Q6HR PRN Moderate Pain (Scale 4 to 6) Lorazepam 1 mg 02/13/24 07:26 Lorazepam 1 Mg Tab PO Q4HR PRN Anxiety Lorazepam 1 mg 02/13/24 07:26 Lorazepam 2 Mg/Ml Inj IM Q6HR PRN Severe Agitation Lorazepam 1 mg 02/13/24 07:26 Lorazepam 1 Mg Tab PO Q4HR PRN CIWA 8 or 9 Lorazepam 2 mg 02/13/24 07:26 Lorazepam 1 Mg Tab PO Q4HR PRN Ciwa greater than 10 Magnesium Hydroxide 2,400 mg 02/13/24 07:26 Magnesium Hydroxide 2,400 Mg/30 Ml Cup PO DAILY PRN Constipation Multivitamins 1 each 02/13/24 09:00 02/15/24 08:15 Multivitamins, Thera 1 Each Tab PO Not Given DAILY SUSU Nicotine 1 patch 02/13/24 09:00 02/15/24 08:15 Nicotine 21mg/24hr Patch TRANSDERM Not Given DAILY SUSU Sertraline HCl 50 mg 02/14/24 09:00 02/15/24 08:15 Sertraline 50 Mg Tab PO Not Given DAILY SUSU Thiamine HCl 100 mg 02/13/24 09:00 02/15/24 08:15 Thiamine 100 Mg Tab PO Not Given DAILY SUSU Trazodone HCl 50 mg 02/13/24 11:20 Trazodone Hcl 50 Mg Tab PO HS PRN Insomnia Objective - Vital Signs Vital signs: Vital Signs Temp 97.6 F 02/15/24 06:00 Pulse 57 L 02/15/24 06:00 Resp 20 02/15/24 06:00 BP 103/59 02/15/24 06:00 Pulse Ox 97 02/15/24 06:00 FiO2
--- NOTE | 2024-02-16 02:40 | P.PN ---
Progress Note - Text Progress Note Date: 02/16/24 Attempted to see the patient in the mental health unit on 02/14 at 2300. The patient refused to be seen or be evaluated.
--- NOTE | 2024-02-16 08:35 | P.PN ---
Subjective Progress Note Date: 02/16/24 Principal diagnosis: IMPRESSIONS: major depressive disorder, without psychotic features anxiety disorder, unspecified alcohol use disorder, severe nicotine dependance homelessness Rule out personality disorder Patient Name: Major Lui Date of : 75 Patient Status: Inpatient Attending Provider: Trey Nash Date: 02/16/2024 initialization Date: 02/14/24 08:40 Interval History: Today's interview was no different than the previous day Patient continues to refuse to be involved in any conversation or interaction Patient remains withdrawn and staff reports that the patient usually spends his time in the room Patient was seen in his room and was refusing to speak with service writer advisor today. The patient was laying in bed, covered up. He has not been going to meals or groups. He also isolates to his room. Patient became very angry and demanded to be discharged to be left alone Reviewing the chart reveals that: He has his deferral with his compliance attorney yesterday, and he refused to speak with her. He stated that he does not want treatment, and he will not take medication. Patient has not been taking any medications. MENTAL STATUS EXAM: General Appearance: Patient appears to be older than stated age. Has short hair and a big rivera. Laying in bed, with no eye contact. Patient appears to have poor hygiene and grooming. Behavior: Patient is laying in bed with agitated behavior. [place] and Irritated. Speech: Patient's speech is fluent and nonpressured. Evasive and guarded Mood/Affect: Patient is not cooperative with assessment. affect is congruent and constricted. Suicidality/Homicidality: Patient is not cooperative with assessment Perceptions: Patient is not cooperative with assessment Though content/process:Patient is not cooperative with assessment and thought process is concrete and guarded. Memory and concentration: AOX3, grossly intact for the purposes of this session. Judgment and insight: poor IMPRESSIONS: As noted in the chart major depressive disorder, without psychotic features anxiety disorder, unspecified alcohol use disorder, severe nicotine dependance homelessness PLAN: Agree with the current treatment plan as outlined by Dr. Nash -Patient is admitted under involuntary status to [facility] for stabilization of psychiatric symptoms and safety. Patient has not signed adult voluntary form or medication consent and is placed in patient's chart. A second certification was completed and along with petition will be filed for court. -Medications : Librium 20mg TID with to plan to taper down for etoh withdrawal. Zoloft 50mg daily for mood/anxiety, Trazodone 50mg qhs prn for sleep -Ativan and Haldol PRN for agitation/aggression -thiamine, MVM for etoh use -CIWA protocol with Ativan PRN for ETOH withdrawal -NRT - nicotine patch - on board for discharge planning. Encourage patient to participate in groups to work on coping skills. Will await court date. Hearing is scheduled for February 18. Will need to complete a duty to warn due to homicidal threats toward sister. Jj Veloz MD Active Medications Generic Name Dose Route Start Last Admin Trade Name Freq PRN Reason Stop Dose Admin Acetaminophen 650 mg 02/13/24 07:26 Acetaminophen Tab 325 Mg Tab PO Q4HR PRN Mild Pain (Scale 1 to 3) Al Hydroxide/Mg Hydroxide 30 ml 02/13/24 07:26 Mag Hydrox/Al Hydrox/Simeth 355 Ml Bottle PO Q4HR PRN GI Upset Chlordiazepoxide HCl 20 mg 02/13/24 11:30 02/15/24 08:15 Chlordiazepoxide 10 Mg Cap PO Not Given TID SUSU Folic Acid 1 mg 02/13/24 09:00 02/15/24 08:15 Folic Acid 1 Mg Tab PO Not Given DAILY SUSU Haloperidol 5 mg 02/13/24 07:26 Haloperidol 5 Mg Tab PO Q4HR PRN Agitation Haloperidol Lactate 5 mg 02/13/24 07:26 Haloperidol Lactate 5 Mg/Ml 1 Ml Vial IM Q4HR PRN Severe Agitation Ibuprofen 600 mg 02/13/24 07:26 Ibuprofen 600 Mg Tab PO Q6HR PRN Moderate Pain (Scale 4 to 6) Lorazepam 1 mg 02/13/24 07:26 Lorazepam 1 Mg Tab PO Q4HR PRN Anxiety Lorazepam 1 mg 02/13/24 07:26 Lorazepam 2 Mg/Ml Inj IM Q6HR PRN Severe Agitation Lorazepam 1 mg 02/13/24 07:26 Lorazepam 1 Mg Tab PO Q4HR PRN CIWA 8 or 9 Lorazepam 2 mg 02/13/24 07:26 Lorazepam 1 Mg Tab PO Q4HR PRN [place] greater than 10 Magnesium Hydroxide 2,400 mg 02/13/24 07:26 Magnesium Hydroxide 2,400 Mg/30 Ml Cup PO DAILY PRN Constipation Multivitamins 1 each 02/13/24 09:00 02/15/24 08:15 Multivitamins, Thera 1 Each Tab PO Not Given DAILY SUSU Nicotine 1 patch 02/13/24 09:00 02/15/24 08:15 Nicotine 21mg/24hr Patch TRANSDERM Not Given DAILY SUSU Sertraline HCl 50 mg 02/14/24 09:00 02/15/24 08:15 Sertraline 50 Mg Tab PO Not Given DAILY SUSU Thiamine HCl 100 mg 02/13/24 09:00 02/15/24 08:15 Thiamine 100 Mg Tab PO Not Given DAILY SUSU Trazodone HCl 50 mg 02/13/24 11:20 Trazodone Hcl 50 Mg Tab PO HS PRN Insomnia Objective - Vital Signs Vital signs: Vital Signs Temp 97.6 F 02/15/24 06:00 Pulse 57 L 02/15/24 06:00 Resp 20 02/15/24 06:00 BP 103/59 02/15/24 06:00 Pulse Ox 97 02/15/24 06:00 FiO2
--- NOTE | 2024-02-17 03:25 | P.PN ---
Progress Note - Text Progress Note Date: 02/17/24 Attempted to see the patient in the mental health unit at 2200 on 02/15. The patient refused to be seen or be evaluated
--- NOTE | 2024-02-17 10:03 | P.PN ---
Progress Note - Text Progress Note Date: 02/17/24 Interval History: Patient was seen in his room and was refusing to speak with sign writer hand today. The patient was laying in bed, covered up. He told sign writer hand to "go away" and that he did not want to talk today. He has not been going to groups. He also isolates to his room. He refused talking with his workers compensation attorney for deferral, so we will await court hearing date. He stated that he does not want treatment, and he will not take medication. Patient has not been taking any medications. MENTAL STATUS EXAM: General Appearance: Patient appears to be older than stated age. Has short hair and a big rivera. Laying in bed, with no eye contact. Patient appears to have poor hygiene and grooming. Behavior: Patient is laying in bed with agitated behavior. [place] and Irritated. Speech: Patient's speech is fluent and nonpressured. Evasive and guarded Mood/Affect: Patient is not cooperative with assessment. affect is congruent and constricted. Suicidality/Homicidality: Patient is not cooperative with assessment Perceptions: Patient is not cooperative with assessment Though content/process:Patient is not cooperative with assessment and thought process is concrete and guarded. Memory and concentration: AOX3, grossly intact for the purposes of this session. Judgment and insight: poor IMPRESSIONS: major depressive disorder, without psychotic features anxiety disorder, unspecified alcohol use disorder, severe nicotine dependance homelessness PLAN: -Patient is admitted under involuntary status to [facility]HU for stabilization of psychiatric symptoms and safety. Patient has not signed adult voluntary form or medication consent and is placed in patient's chart. -Medications : d/c Librium, Zoloft 50mg daily for mood/anxiety, Trazodone 50mg qhs prn for sleep. patient is refusing meds. -Ativan and Haldol PRN for agitation/aggression -thiamine, MVM for etoh use -d/c CIWA protocol with Ativan PRN for ETOH withdrawal -NRT - nicotine patch -SW on board for discharge planning. Encourage patient to participate in groups to work on coping skills. Will await court date. Hearing is scheduled for February 18. Will need to complete a duty to warn due to homicidal threats toward sister.
--- NOTE | 2024-02-18 10:00 | P.PN ---
Progress Note - Text Progress Note Date: 02/18/24 Interval History: Patient was seen in his room and was refusing to speak with web content writer today. The patient was laying in bed, covered up. He was refusing to speak again today. He has not been going to groups. He also isolates to his room. He refused talking with his attorney general for deferral, so we will await court hearing tomorrow. Patient has not been taking any medications. MENTAL STATUS EXAM: General Appearance: Patient appears to be older than stated age. Has short hair and a big rivera. Laying in bed, with no eye contact. Patient appears to have poor hygiene and grooming. Behavior: Patient is laying in bed with agitated behavior. [place] and Irritated. Speech: Patient's speech is fluent and nonpressured. Evasive and guarded Mood/Affect: Patient is not cooperative with assessment. affect is congruent and constricted. Suicidality/Homicidality: Patient is not cooperative with assessment Perceptions: Patient is not cooperative with assessment Though content/process:Patient is not cooperative with assessment and thought process is concrete and guarded. Memory and concentration: AOX3, grossly intact for the purposes of this session. Judgment and insight: poor IMPRESSIONS: major depressive disorder, without psychotic features anxiety disorder, unspecified alcohol use disorder, severe nicotine dependance homelessness PLAN: -Patient is admitted under involuntary status to [facility] for stabilization of psychiatric symptoms and safety. Patient has not signed adult voluntary form or medication consent and is placed in patient's chart. -Medications : Zoloft 50mg daily for mood/anxiety, Trazodone 50mg qhs prn for sleep. patient is refusing meds. -Ativan and Haldol PRN for agitation/aggression -thiamine, MVM for etoh use -NRT - nicotine patch -SW on board for discharge planning. Encourage patient to participate in groups to work on coping skills. Hearing is scheduled for February 18. Will need to complete a duty to warn due to homicidal threats toward sister.
[2024-02-19] MEDS ORDERED: OLANZapine 10 MG VIAL IM PRN (10:04)
--- NOTE | 2024-02-19 10:04 | P.PN ---
Progress Note - Text Progress Note Date: 02/19/24 Interval History: Patient was seen in his room and continues to refuse to speak with residential mortgage underwriter. The patient was laying in bed. He has not been going to groups. He also isolates to his room. Patient had his hearing today, and was put on a court order. Patient stated that he will take medication, however, he does not want to talk "anytime soon". Will monitor for any reactions to the medications. MENTAL STATUS EXAM: General Appearance: Patient appears to be older than stated age. Has short hair and a big rivera. Laying in bed, with no eye contact. Patient appears to have poor hygiene and grooming. Behavior: Patient is laying in bed with agitated behavior. [place] and Irritated. Speech: Patient's speech is fluent and nonpressured. Evasive and guarded Mood/Affect: Patient is not cooperative with assessment. affect is congruent and constricted. Suicidality/Homicidality: Patient is not cooperative with assessment Perceptions: Patient is not cooperative with assessment Though content/process:Patient is not cooperative with assessment and thought process is concrete and guarded. Memory and concentration: AOX3, grossly intact for the purposes of this session. Judgment and insight: poor IMPRESSIONS: major depressive disorder, without psychotic features anxiety disorder, unspecified alcohol use disorder, severe nicotine dependance homelessness PLAN: -Patient is admitted under involuntary status to [facility] for stabilization of psychiatric symptoms and safety. Patient put on a full court order today. Patient stated that he will take the medications. -Medications : Zoloft 50mg daily for mood/anxiety, Trazodone 50mg qhs prn for sleep. Add Zyprexa IM if patient refuses zoloft, as patient is on a court order -Ativan and Haldol PRN for agitation/aggression -thiamine, MVM for etoh use -NRT - nicotine patch -SW on board for discharge planning. Encourage patient to participate in groups to work on coping skills. Patient placed on full court order 02/18. Will need to complete a duty to warn due to homicidal threats toward sister.
--- NOTE | 2024-02-20 11:01 | P.PN ---
Progress Note - Text Progress Note Date: 02/20/24 Interval History: Patient was seen in his room and continues to refuse to speak with consumer loan underwriter. The patient was laying in bed. He has not been going to groups. He also isolates to his room. Patient was put on a court order on 02/18, and has been compliant with his medications. Will monitor for any reactions to the medications. MENTAL STATUS EXAM: General Appearance: Patient appears to be older than stated age. Has short hair and a big rivera. Laying in bed, with no eye contact. Patient appears to have poor hygiene and grooming. Behavior: Patient is laying in bed with agitated behavior. [place] and Irritated. Speech: Patient's speech is fluent and nonpressured. Evasive and guarded Mood/Affect: Patient is not cooperative with assessment. affect is congruent and constricted. Suicidality/Homicidality: Patient is not cooperative with assessment Perceptions: Patient is not cooperative with assessment Though content/process:Patient is not cooperative with assessment and thought process is concrete and guarded. Memory and concentration: AOX3, grossly intact for the purposes of this session. Judgment and insight: poor IMPRESSIONS: major depressive disorder, without psychotic features anxiety disorder, unspecified alcohol use disorder, severe nicotine dependance homelessness PLAN: -Patient is admitted under involuntary status to [facility] for stabilization of psychiatric symptoms and safety. Patient put on a full court order today. Patient stated that he will take the medications. -Medications : add abilify 5mg po daily for mood stabilization, Zoloft 50mg daily for mood/anxiety, Trazodone 50mg qhs prn for sleep. Zyprexa IM if patient refuses zoloft, as patient is on a court order -Ativan and Haldol PRN for agitation/aggression -thiamine, MVM for etoh use -NRT - nicotine patch -CORDELIA on board for discharge planning. Encourage patient to participate in groups to work on coping skills. Patient placed on full court order 02/18. Duty to warn was completed by CORDELIA
[2024-02-21] MEDS: ARIPiprazole 5 MG TAB PO SCH (08:26)
[2024-02-21] MEDS: SERTRALINE 100 MG TAB PO SCH (08:27)
--- NOTE | 2024-02-21 10:20 | P.PN ---
Progress Note - Text Progress Note Date: 02/21/24 Interval History: Patient was seen in his room and continues to refuse to speak with marketing underwriter. When marketing underwriter knocked on the door, the patient said "go away". The patient was laying in bed. He has not been going to groups. He also isolates to his room. Patient was put on a court order on 02/18, and has been compliant with his medications now. Will monitor for any reactions to the medications. MENTAL STATUS EXAM: General Appearance: Patient appears to be older than stated age. Has short hair and a big rivera. Laying in bed, with no eye contact. Patient appears to have poor hygiene and grooming. Behavior: Patient is laying in bed with agitated behavior. [place] and Irritated. Speech: Patient's speech is fluent and nonpressured. Evasive and guarded Mood/Affect: Patient is not cooperative with assessment. affect is congruent and constricted. Suicidality/Homicidality: Patient is not cooperative with assessment Perceptions: Patient is not cooperative with assessment Though content/process:Patient is not cooperative with assessment and thought process is concrete and guarded. Memory and concentration: AOX3, grossly intact for the purposes of this session. Judgment and insight: poor IMPRESSIONS: major depressive disorder, without psychotic features anxiety disorder, unspecified alcohol use disorder, severe nicotine dependance homelessness PLAN: -Patient is admitted under involuntary status to [facility] for stabilization of psychiatric symptoms and safety. Patient put on a full court order today. Patient stated that he will take the medications. -Medications : Increasing abilify 7.5mg po daily for mood stabilization and will go up to 10 mg daily by Saturday, Zoloft 100mg daily for mood/anxiety, Trazodone 50mg qhs prn for sleep. Zyprexa IM if patient refuses zoloft or Abilify, as patient is on a court order -Ativan and Haldol PRN for agitation/aggression -thiamine, MVM for etoh use -NRT - nicotine patch -SW on board for discharge planning. Encourage patient to participate in groups to work on coping skills. Patient placed on full court order 02/18. Duty to warn was completed by CORDELIA.
--- NOTE | 2024-02-22 08:21 | P.PN ---
Subjective Progress Note Date: 02/22/24 Principal diagnosis: IMPRESSIONS: major depressive disorder, without psychotic features anxiety disorder, unspecified alcohol use disorder, severe nicotine dependance homelessness Rule out personality disorder Patient Name: Major Lui Date of : 75 Patient Status: Inpatient Attending Provider: Trey Nash Date: 02/22/24 Initialization Date: 02/21/24 08:48 Subjective data: Patient was seen in his room and continues to refuse to speak with report writer. Patient was sleeping soundly and woke up with a startle Patient then turned around and turned his back towards this report writer and demanded that I go away . The patient was laying in bed. He has not been going to groups. He also isolates to his room. Patient was put on a court order on 02/18, and has been compliant with his medications now. Will monitor for any reactions to the medications. MENTAL STATUS EXAM: General Appearance: Patient appears to be older than stated age. Has short hair and a big rivera. Laying in bed, with no eye contact. Patient appears to have poor hygiene and grooming. Behavior: Patient is laying in bed with agitated behavior. [place] and Irritated. Speech: Patient's speech is fluent and nonpressured. Evasive and guarded Mood/Affect: Patient is not cooperative with assessment. affect is congruent and constricted. Suicidality/Homicidality: Patient is not cooperative with assessment Perceptions: Patient is not cooperative with assessment Though content/process:Patient is not cooperative with assessment and thought process is concrete and guarded. Memory and concentration: AOX3, grossly intact for the purposes of this session. Judgment and insight: poor IMPRESSIONS: major depressive disorder, without psychotic features anxiety disorder, unspecified alcohol use disorder, severe nicotine dependance homelessness PLAN: Agree with the current treatment plan -Patient is admitted under involuntary status to [facility] for stabilization of psychiatric symptoms and safety. Patient put on a full court order today. Patient stated that he will take the medications. -Medications : abilify 7.5mg po daily for mood stabilization and will go up to 10 mg daily by Saturday, Zoloft 100mg daily for mood/anxiety, Trazodone 50mg qhs prn for sleep. Zyprexa IM if patient refuses zoloft or Abilify, as patient is on a court order -Ativan and Haldol PRN for agitation/aggression -thiamine, MVM for etoh use -NRT - nicotine patch -SW on board for discharge planning. Encourage patient to participate in groups to work on coping skills. Patient placed on full court order 02/18. Duty to warn was completed by CORDELIA. Jj Veloz MD Objective - Vital Signs Vital signs: Vital Signs Temp 97.6 F 02/21/24 06:31 Pulse 56 L 02/21/24 06:31 Resp 14 02/21/24 06:31 BP 99/58 02/21/24 06:31 Pulse Ox 100 02/18/24 06:49 FiO2
[2024-02-22] MEDS: ARIPiprazole 5 MG TAB PO SCH (08:24)
--- NOTE | 2024-02-23 08:39 | P.PN ---
Subjective Principal diagnosis: IMPRESSIONS: major depressive disorder, without psychotic features anxiety disorder, unspecified alcohol use disorder, severe nicotine dependance homelessness Rule out personality disorder Patient Name: Major Lui Date of : 75 Patient Status: Inpatient Attending Provider: Trey Nash Date: 02/22 Initialization Date: 02/21/24 08:48 Subjective data: To his interaction was no different than the previous day Patient was seen in his room and continues to refuse to speak with editorial writer. Patient was sleeping soundly and again woke up with a startle Patient then turned around and turned his back towards this editorial writer and demanded that I go away . The patient was laying in bed. He has not been going to groups. He also isolates to his room. Patient was put on a court order on 02/18, and has been compliant with his medications now. Will monitor for any reactions to the medications. MENTAL STATUS EXAM: General Appearance: Patient appears to be older than stated age. Has short hair and a big rivera. Laying in bed, with no eye contact. Patient appears to have poor hygiene and grooming. Behavior: Patient is laying in bed with agitated behavior. [place] and Irritated. Speech: Patient's speech is fluent and nonpressured. Evasive and guarded Mood/Affect: Patient is not cooperative with assessment. affect is congruent and constricted. Suicidality/Homicidality: Patient is not cooperative with assessment Perceptions: Patient is not cooperative with assessment Though content/process:Patient is not cooperative with assessment and thought process is concrete and guarded. Memory and concentration: AOX3, grossly intact for the purposes of this session. Judgment and insight: poor IMPRESSIONS: major depressive disorder, without psychotic features anxiety disorder, unspecified alcohol use disorder, severe nicotine dependance homelessness PLAN: Agree with the current treatment plan -Patient is admitted under involuntary status to [facility] for stabilization of psychiatric symptoms and safety. Patient put on a full court order today. Patient stated that he will take the medications. -Medications : abilify 7.5mg po daily for mood stabilization and will go up to 10 mg daily by Saturday, Zoloft 100mg daily for mood/anxiety, Trazodone 50mg qhs prn for sleep. Zyprexa IM if patient refuses zoloft or Abilify, as patient is on a court order -Ativan and Haldol PRN for agitation/aggression -thiamine, MVM for etoh use -NRT - nicotine patch -SW on board for discharge planning. Encourage patient to participate in groups to work on coping skills. Patient placed on full court order 02/18. Duty to warn was completed by CORDELIA. Jj Veloz MD Objective - Vital Signs Vital signs: Vital Signs Temp 97.9 F 02/23/24 06:49 Pulse 56 L 02/23/24 06:49 Resp 18 02/23/24 06:49 BP 100/59 02/23/24 06:49 Pulse Ox 99 02/23/24 06:49 FiO2
[2024-02-24] MEDS: ARIPiprazole 10 MG TAB PO SCH (08:29)
--- NOTE | 2024-02-24 11:53 | P.PN ---
Progress Note - Text Progress Note Date: 02/24/24 Interval History: Patient was seen in his room today and was greeted by life underwriter at the bedside, he appeared to be mildly less irritable today with life underwriter and agreeable to speak briefly. He remains concrete, states that he is still feeling depressed and suicidal. He claims that he does not have any plans to harm himself here in the hospital. He believes that the medications have not been helping him thus far and "only making me a zombie". He continues to state that he is having anxiety, has been taking the medications, not participating in groups, up for meals, continues to be disheveled in appearance poor hygiene and grooming, claims that he is not sleeping well at nighttime has been mainly isolative in his room.. At this time he denies any auditory or visual hallucinations. Denies any homicidal ideations. MENTAL STATUS EXAM: General Appearance: Patient appears to be older than stated age. Has short hair and a big rivera. Laying in bed, with no eye contact. Patient appears to have poor hygiene and grooming. Behavior: Patient is laying in bed with agitated behavior. [place] and Irritated. Speech: Patient's speech is fluent and nonpressured. Evasive and guarded improving mildly Mood/Affect: Patient is not cooperative with assessment. affect is congruent and constricted. Suicidality/Homicidality: Patient is not cooperative with assessment Perceptions: Patient is not cooperative with assessment Though content/process:Patient is not cooperative with assessment and thought process is concrete and guarded. Improving mildly, concrete and poverty of content Memory and concentration: AOX3, grossly intact for the purposes of this session. Judgment and insight: poor IMPRESSIONS: major depressive disorder, without psychotic features anxiety disorder, unspecified alcohol use disorder, severe nicotine dependance homelessness PLAN: -Patient is admitted under involuntary status to [facility] for stabilization of psychiatric symptoms and safety. Patient put on a full court order today. Patient stated that he will take the medications. -Medications : Discontinue abilify due to ineffectiveness. Increase Zoloft 150mg daily for mood/anxiety, Trazodone 50mg qhs for sleep. Zyprexa IM if patient refuses zoloft or lithobid, as patient is on a court order -Ativan and Haldol PRN for agitation/aggression -thiamine, MVM for etoh use -NRT - nicotine patch -SW on board for discharge planning. Encourage patient to participate in groups to work on coping skills. Patient placed on full court order 02/18. Duty to warn was completed by CORDELIA.
[2024-02-24] MEDS: LORazepam 1 MG TAB PO PRN (21:58)
[2024-02-24] MEDS: traZODone HCL 50 MG TAB PO SCH (21:59)
[2024-02-25] MEDS: LITHIUM CARBONATE ER 450 MG TABLET.ER PO SCH (08:11)
[2024-02-25] MEDS: SERTRALINE 50 MG TAB PO SCH (08:11)
--- NOTE | 2024-02-25 10:13 | P.PN ---
Progress Note - Text Progress Note Date: 02/25/24 Interval History: Patient was seen in his room today and was agreeable to speak to movie writer at the bedside. At first, he shooed movie writer away with a motion of his hand, however, when asked how he was today, he stated that he is always anxious, and he continues to state that he wants to kill himself, and his sister. He remains concrete, and states that he slept a little better last night. He states that he eats his meals. He has been taking the medications, not participating in groups, up for meals, continues to be disheveled in appearance poor hygiene and grooming, has been mainly isolative in his room. At this time he denies any auditory or visual hallucinations. Endorses homicidal ideations toward his sister. MENTAL STATUS EXAM: General Appearance: Patient appears to be older than stated age. Has short hair and a big rivera. Laying in bed, with no eye contact. Patient appears to have poor hygiene and grooming. Behavior: Patient is laying in bed with agitated behavior. [place] and Irritated. Speech: Patient's speech is fluent and nonpressured. Evasive and guarded improving mildly Mood/Affect: Patient states he is depressed and anxious. affect is congruent and constricted. Suicidality/Homicidality: Patient states he wants to , everyday, and he wants to kill his sister. Perceptions: Patient is not cooperative with assessment Though content/process:Patients thought process is concrete and guarded. Improving mildly, concrete and poverty of content Memory and concentration: AOX3, grossly intact for the purposes of this session. Judgment and insight: poor IMPRESSIONS: major depressive disorder, without psychotic features anxiety disorder, unspecified alcohol use disorder, severe nicotine dependance homelessness PLAN: -Patient is admitted under involuntary status to [facility] for stabilization of psychiatric symptoms and safety. Patient put on a full court order today. Patient stated that he will take the medications. -Medications : Zoloft 150mg daily for mood/anxiety, Lithobid 450mg daily for agression/mood Trazodone 50mg qhs for sleep. Zyprexa IM if patient refuses zoloft or lithobid, as patient is on a court order -Ativan and Haldol PRN for agitation/aggression -will check lithium level either Saturday morning -thiamine, MVM for etoh use -NRT - nicotine patch -SW on board for discharge planning. Encourage patient to participate in groups to work on coping skills. Patient placed on full court order 02/18. Duty to warn was completed by CORDELIA.
--- NOTE | 2024-02-26 11:12 | P.PN ---
Progress Note - Text Progress Note Date: 02/26/24 Interval History: Patient was seen in his room today and was agreeable to speak to senior copywriter at the bedside. The patient stated that his stomach is killing him at the moment and does not know if its the medications or his food. Produce Wrapper asked patient if there is anything that can help him, he stated no. He stated he is sleeping here and there. He remains concrete, and states that he slept a little better last night. He states that he eats his meals. He has been taking the medications, not participating in groups, up for meals, continues to be disheveled in appearance poor hygiene and grooming, has been mainly isolative in his room. At this time he denies any auditory or visual hallucinations. Endorses homicidal ideations toward his sister, and suicidal ideations toward himself. MENTAL STATUS EXAM: General Appearance: Patient appears to be older than stated age. Has short hair and a big rivera. Laying in bed, with no eye contact. Patient appears to have poor hygiene and grooming. Behavior: Patient is laying in bed with agitated behavior. [place] and Irritated. Speech: Patient's speech is fluent and nonpressured. Evasive and guarded improving mildly Mood/Affect: Patient states he is depressed and anxious. affect is congruent and constricted. Suicidality/Homicidality: Patient states he wants to , everyday, and he wants to kill his sister. Perceptions: Patient is not cooperative with assessment Though content/process:Patients thought process is concrete and guarded. , conc rete and poverty of content Memory and concentration: AOX3, grossly intact for the purposes of this session. Judgment and insight: poor IMPRESSIONS: major depressive disorder, without psychotic features anxiety disorder, unspecified alcohol use disorder, severe nicotine dependance homelessness PLAN: -Patient is admitted under involuntary status to [facility] for stabilization of psychiatric symptoms and safety. Patient put on a full court order today. Patient stated that he will take the medications. -Medications : increase Zoloft 200mg daily for mood/anxiety, change Lithobid to lithium 300 mg daily for mood stabilization/SI, Trazodone 50mg qhs for sleep. Zyprexa IM if patient refuses zoloft or lithium, as patient is on a court order -Ativan and Haldol PRN for agitation/aggression -will check lithium level Saturday morning -thiamine, MVM for etoh use -NRT - nicotine patch -CORDELIA on board for discharge planning. Encourage patient to participate in groups to work on coping skills. Patient placed on full court order 02/18. Duty to warn was completed by CORDELIA
[2024-02-26] MEDS: MAG HYDROX/AL HYDROX/SIMETH 355 ML BOTTLE PO PRN (21:31)
[2024-02-26] MEDS: ONDANSETRON ODT 4 MG TAB PO PRN (23:03)
[2024-02-27] MEDS: LITHIUM CARBONATE 300 MG CAP PO SCH (09:36)
[2024-02-27] MEDS: SERTRALINE 100 MG TAB PO SCH (09:36)
--- NOTE | 2024-02-27 10:10 | P.PN ---
Progress Note - Text Progress Note Date: 02/27/24 Interval History: Patient was seen in his room today and was agreeable to speak to functional tester typewriters at the bedside. Patient continues to state that he is not feeling well and claims that he was vomiting the whole night. He claims that the Zofran is not helping much. He is denying any fevers at this time or any chills. She was agreeable to have blood work done today. He states that he is mainly still in his room, was fairly concrete continues to have irritability. Continues to endorse depression, thoughts of harming himself and harming other people no specific plan. continues to be disheveled in appearance poor hygiene and grooming, has been mainly isolative in his room. At this time he denies any auditory or visual hallucinations. Endorses homicidal ideations toward his sister, and suicidal ideations toward himself. MENTAL STATUS EXAM: General Appearance: Patient appears to be older than stated age. Has short hair and a big rivera. Laying in bed, with no eye contact. Patient appears to have poor hygiene and grooming. Behavior: Patient is laying in bed with agitated behavior. [place] and Irritated. Speech: Patient's speech is fluent and nonpressured. Evasive and guarded improving mildly Mood/Affect: Patient states he is depressed and anxious. affect is congruent and constricted. Suicidality/Homicidality: Patient states he wants to , everyday, and he wants to kill his sister. Perceptions: Patient is not cooperative with assessment Though content/process:Patients thought process is concrete and guarded. , concrete and poverty of content, focused on his nausea and vomiting Memory and concentration: AOX3, grossly intact for the purposes of this session. Judgment and insight: poor IMPRESSIONS: major depressive disorder, without psychotic features anxiety disorder, unspecified alcohol use disorder, severe nicotine dependance homelessness PLAN: -Patient is admitted under involuntary status to [facility] for stabilization of psychiatric symptoms and safety. Patient put on a full court order today. Patient stated that he will take the medications. -Medications : Zoloft 200mg daily for mood/anxiety, continue lithium due to possible side effect of nausea/vomiting. Replace with Seroquel 50 mg nightly for insomnia/mood adjunct. Zyprexa IM if patient refuses zoloft or lithium, as patient is on a court order. Trazodone 50 mg nightly as needed for insomnia. Zofran every 8 hours as needed for nausea. -Ativan and Haldol PRN for agitation/aggression -will check lithium level Saturday morning -Ordered CBC with differential and CMP today due to patient's nausea. -thiamine, MVM for etoh use -NRT - nicotine patch -SW on board for discharge planning. Encourage patient to participate in groups to work on coping skills. Patient placed on full court order 02/18. Duty to warn was completed by CORDELIA
[2024-02-27 13:04] LABS: Basophils # (A) 0.1 k/uL (0-0.2); Basophils % (A) 1 %; Eosinophils # (A) 0.2 k/uL (0-0.7); Eosinophils % (A) 2 %; HCT 53.6 % (39.0-53.0); HGB 17.4 gm/dL (13.0-17.5); Lymphocytes # (A) 2.5 k/uL (1.0-4.8); Lymphocytes % (A) 20 %; MCH 31.2 pg (25.0-35.0); MCHC 32.4 g/dL (31.0-37.0); MCV 96.2 fL (80.0-100.0); Mean Platelet Volume 7.7; Monocytes # (A) 0.9 k/uL (0-1.0); Monocytes % (A) 7 %; Neutrophils # (A) 8.6 k/uL (1.3-7.7); Neutrophils % (A) 69 %; Platelet Count 410 k/uL (150-450); RBC 5.56 m/uL (4.30-5.90); RDW 12.7 % (11.5-15.5); WBC 12.4 k/uL (3.8-10.6)
[2024-02-27 13:21] LABS: ALT 24 U/L (4-49); AST 22 U/L (17-59); African American GFR (CKD) 72 (>60 ml/min/1.73 sqM); Albumin 5.2 g/dL (3.5-5.0); Alkaline Phosphatase 66 U/L (38-126); Anion Gap 11 mmol/L; Blood Urea Nitrogen 23 mg/dL (9-20); Carbon Dioxide 27 mmol/L (22-30); Chloride 102 mmol/L (98-107); Glucose 91 mg/dL (74-99); Non-African American GFR(CKD) 63 (>60 ml/min/1.73 sqM); Potassium 4.5 mmol/L (3.5-5.1); Sodium 140 mmol/L (137-145); Total Bilirubin 0.7 mg/dL (0.2-1.3); Total Protein 8.5 g/dL (6.3-8.2)
[2024-02-27] MEDS: QUEtiapine 50 MG TAB PO SCH (20:26)
[2024-02-27] MEDS: ACETAMINOPHEN TAB 325 MG TAB PO PRN (20:26)
--- NOTE | 2024-02-28 11:33 | P.PN ---
Progress Note - Text Progress Note Date: 02/28/24 Interval History: Patient was seen in his room today and was agreeable to speak to show card writer at the bedside. Patient claims that he is feeling less nauseous today, has not vomited. Claims that his stomach "is still a bit upset". He continues to be fairly constricted and irritable in tone. He states that he is mainly still in his room, was fairly concrete continues to have irritability. Continues to endorse depression, thoughts of harming himself and harming other people no specific plan. continues to be disheveled in appearance poor hygiene and grooming, has been mainly isolative in his room. At this time he denies any auditory or visual hallucinations. Endorses homicidal ideations toward his sister, and suicidal ideations toward himself. MENTAL STATUS EXAM: General Appearance: Patient appears to be older than stated age. Has short hair and a big rivera. Laying in bed, with no eye contact. Patient appears to have poor hygiene and grooming. Behavior: Patient is laying in bed with agitated behavior. [place] and Irritated. Improving mildly Speech: Patient's speech is fluent and nonpressured. Evasive and guarded improving mildly Mood/Affect: Patient states he is depressed and anxious. affect is congruent and constricted. Suicidality/Homicidality: Patient states he wants to , everyday, and he wants to kill his sister. Perceptions: Patient is not cooperative with assessment Though content/process:Patients thought process is concrete and guarded. , concrete and poverty of content, focused on his nausea and vomiting Memory and concentration: AOX3, grossly intact for the purposes of this session. Judgment and insight: poor IMPRESSIONS: major depressive disorder, without psychotic features anxiety disorder, unspecified alcohol use disorder, severe nicotine dependance homelessness PLAN: -Patient is admitted under involuntary status to [facility] for stabilization of ps ychiatric symptoms and safety. Patient put on a full court order today. Patient stated that he will take the medications. -Medications : Zoloft 200mg daily for mood/anxiety, Seroquel 50 mg nightly for insomnia/mood adjunct. Zyprexa IM if patient refuses zoloft or lithium, as patient is on a court order. Trazodone 50 mg nightly as needed for insomnia. Zofran every 8 hours as needed for nausea. -Ativan and Haldol PRN for agitation/aggression -Saloon Keeper reviewed blood work -thiamine, MVM for etoh use -NRT - nicotine patch -SW on board for discharge planning. Encourage patient to participate in groups to work on coping skills. Patient placed on full court order 02/18. Duty to warn was completed by CORDELIA
--- NOTE | 2024-02-29 10:43 | P.PN ---
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 I'd seen him walking in the [place] earlier alert or I contact gait and station are General Appearance: Patient appears to be older than stated age. Has short hair and a big rivera. Laying in bed, with no eye contact. Patient appears to have poor hygiene and grooming. Behavior: Patient is laying in bed with agitated behavior. [place] and Irritated. Speech: Family set is blunted. Mood/Affect: Irritable Suicidality/Homicidality: Patient would not talk. Perceptions: Patient is not cooperative with assessment Though content/process: Would not talk Memory and concentration: Hard to assess Judgment and insight: poor. He is in a hospital where he does not want to be and he won't talk that could help him with the patient shows poor judgment Assessment: Patient not doing well no insight no motivation major depressive disorder, without psychotic features anxiety disorder, unspecified alcohol use disorder, severe nicotine dependance homelessness PLAN: No change -Patient is admitted under involuntary status to [facility] for stabilization of p sychiatric symptoms and safety. Patient put on a full court order today. Patient stated that he will take the medications. -Medications : Zoloft 200mg daily for mood/anxiety, Seroquel 50 mg nightly for insomnia/mood adjunct. Zyprexa IM if patient refuses zoloft or lithium, as patient is on a court order. Trazodone 50 mg nightly as needed for insomnia. Zofran every 8 hours as needed for nausea. -Ativan and Haldol PRN for agitation/aggression -Mechanical Adjuster reviewed blood work -thiamine, MVM for etoh use -NRT - nicotine patch -SW on board for discharge planning. Encourage patient to participate in groups to work on coping skills. Patient placed on full court order 02/18. Duty to warn was completed by CORDELIA Objective - Vital Signs Vital signs: Vital Signs Temp 97.9 F 02/29/24 06:00 Pulse 62 02/29/24 06:00 Resp 18 02/29/24 06:00 BP 115/78 02/29/24 06:00 Pulse Ox 98 02/29/24 06:00 FiO2 - Labs CBC & Chem 7: 02/27/24 12:12 02/27/24 12:12
[2024-03-01] MEDS: LOPERAMIDE 2 MG CAP PO PRN (10:20)
--- NOTE | 2024-03-01 12:25 | P.PN ---
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 General Appearance: Patient appears to be older than stated age. Has short hair and a big rivera. Laying in bed, with no eye contact. Patient appears to have poor hygiene and grooming. Behavior: Patient is laying in bed with agitated behavior. [place] and Irritated. Speech: Family set is blunted. Mood/Affect: Irritable Suicidality/Homicidality: Patient would not talk. Perceptions: Patient is not cooperative with assessment Though content/process: Would not talk Memory and concentration: Hard to assess Judgment and insight: poor. He is in a hospital where he does not want to be and he won't talk DrJose that could help him with the patient shows poor judgment Assessment: Patient not doing well no insight no motivation major depressive disorder, without psychotic features anxiety disorder, unspecified alcohol use disorder, severe nicotine dependance homelessness PLAN: Ashwini is Seroquel a little bit at night increase the chance to get decent night sleep is only on 50 -Patient is admitted under involuntary status to [facility] for stabilization of psychiatric symptoms and safety. Patient put on a full court order today. Patient stated that he will take the medications. -Medications : Zoloft 200mg daily for mood/anxiety, Seroquel 50 mg nightly for insomnia/mood adjunct. Zyprexa IM if patient refuses zoloft or lithium, as boris ent is on a court order. Trazodone 50 mg nightly as needed for insomnia. Zofran every 8 hours as needed for nausea. -Ativan and Haldol PRN for agitation/aggression -Handhole Machine Operator reviewed blood work -thiamine, MVM for etoh use -NRT - nicotine patch -SW on board for discharge planning. Encourage patient to participate in groups to work on coping skills. Patient placed on full court order 02/18. Duty to warn was completed by SW Objective - Vital Signs Vital signs: Vital Signs Temp 98 F 03/01/24 06:33 Pulse 84 03/01/24 06:33 Resp 16 03/01/24 06:33 BP 124/84 03/01/24 06:33 Pulse Ox 98 02/29/24 06:00 FiO2 - Labs CBC & Chem 7: 02/27/24 12:12 02/27/24 12:12
[2024-03-01] MEDS: QUEtiapine 50 MG TAB PO SCH (20:15)
--- NOTE | 2024-03-02 12:40 | P.PN ---
Progress Note - Text Progress Note Date: 03/02/24 Interval History: Patient was seen today in the [facility] [place], [place], was agreeable to speak to internal communications writer today. Patient claims that he continues to have an upset stomach, claims that it is likely acid reflux. We spoke about options and he was okay with trying Protonix and also will add on Carafate. Patient is coming out of his room more and interacting more with others, continues to be mildly irritable, still endorsing some depression anxiety as well, he is appearing to be improving mildly. Claims that he had some difficulty with sleep last night, we spoke about increasing his Seroquel which she is okay with. [place] is eating fairly. Continues to have thoughts of harming himself, no specific plan, continues to have thoughts of harming "1 in particular person". Continues to have disheveled in appearance poor hygiene and grooming, has been mainly isolative in his room. At this time he denies any auditory or visual hallucinations. Endorses homicidal ideations toward his sister, and suicidal ideations toward himself. MENTAL STATUS EXAM: General Appearance: Patient appears to be older than stated age. Has short hair and a big rivera. Laying in bed, with no eye contact. Patient appears to have poor hygiene and grooming. Behavior: Patient is laying in bed with agitated behavior. [place] and Irritated. Improving mildly Speech: Patient's speech is fluent and nonpressured. Evasive and guarded improving mildly Mood/Affect: Patient states he is depressed and anxious. affect is congruent and constricted. Suicidality/Homicidality: Patient states he wants to , everyday, and he wants to kill his sister. Perceptions: Patient is not cooperative with assessment Though content/process:Patients thought process is concrete and guarded. , concrete and poverty of content, focused on his nausea and vomiting Memory and concentration: AOX3, grossly intact for the purposes of this session. Judgment and insight: poor, improving mildly IMPRESSIONS: major depressive disorder, without psychotic features anxiety disorder, unspecified alcohol use disorder, severe nicotine dependance homelessness PLAN: -Patient is admitted under involuntary status to [facility] for stabilization of psychiatric symptoms and safety. Patient put on a full court order today. Patient stated that he will take the medications. -Medications : Zoloft 200mg daily for mood/anxiety, increase Seroquel 200 mg nightly for insomnia/mood adjunct. Zyprexa IM if patient refuses zoloft or lithium, as patient is on a court order. Trazodone 50 mg nightly as needed for insomnia. Zofran every 8 hours as needed for nausea. Added Carafate and Protonix for acid reflux. -Ativan and Haldol PRN for agitation/aggression -thiamine, MVM for etoh use -NRT - nicotine patch -SW on board for discharge planning. Encourage patient to participate in groups to work on coping skills. Patient placed on full court order 02/18. Duty to warn w as completed by CORDELIA
[2024-03-02] MEDS: PANTOPRAZOLE 40 MG TABLET PO SCH (12:50)
[2024-03-02] MEDS: SUCRALFATE 1 GM TAB PO SCH (12:50)
[2024-03-02] MEDS: QUEtiapine 200 MG TAB PO SCH (20:21)
--- NOTE | 2024-03-03 09:57 | P.PN ---
Progress Note - Text Progress Note Date: 03/03/24 Interval History: [place] [facility] [place] agreeable to speak to telegraphic typewriter operator chief today. Patient claims that his stomach is feeling less upset, but is still having some reflux going on. Patient is coming out of his room more and interacting more with others, continues to be mildly irritable, still endorsing some depression anxiety as well, he is appearing to be improving mildly. Claims that he slept ok last night. Claims he is eating fairly. When telegraphic typewriter operator chief asked him where he is going to go upon discharge, he stated that he is going to return to his car. Uat Tester told patient that it is very hot outside, and it would probably not be a great idea, due to the heat. Patient then stated that it would be an "easy way out" for him. Continues to have thoughts of harming himself, no specific plan, continues to have thoughts of harming "1 in particular person". Continues to have disheveled in appearance poor hygiene and grooming. At this time he denies any auditory or visual hallucinations. Endorses homicidal ideations toward his sister, and suicidal ideations toward himself. MENTAL STATUS EXAM: General Appearance: Patient appears to be older than stated age. Has short hair and a big rivera. Laying in bed, with poor eye contact. Patient appears to have poor hygiene and grooming. Behavior: Patient is laying in bed with agitated behavior. [place] and Irritated. Improving mildly Speech: Patient's speech is fluent and nonpressured. Evasive and guarded improving mildly Mood/Affect: Patient states he is depressed and anxious. affect is congruent and constricted. Suicidality/Homicidality: Patient states he wants to , everyday, and he wants to kill his sister. Perceptions: Patient is not cooperative with assessment Though content/process:Patients thought process is concrete and guarded. , concrete and poverty of content, focused on suicide Memory and concentration: AOX3, grossly intact for the purposes of this session. Judgment and insight: poor IMPRESSIONS: major depressive disorder, without psychotic features anxiety disorder, unspecified alcohol use disorder, severe nicotine dependance homelessness PLAN: -Patient is admitted under involuntary status to [facility] for stabilization of psychiatric symptoms and safety. Patient put on a full court order today. Amalia ent stated that he will take the medications. -Medications : increase Zoloft 250mg daily for mood/anxiety, Seroquel 200 mg nightly for insomnia/mood adjunct. Zyprexa IM if patient refuses zoloft or li thium, as patient is on a court order. Trazodone 50 mg nightly as needed for insomnia. Zofran every 8 hours as needed for nausea. Carafate and Protonix for acid reflux. -Ativan and Haldol PRN for agitation/aggression -thiamine, MVM for etoh use -NRT - nicotine patch -SW on board for discharge planning. Encourage patient to participate in groups to work on coping skills. Patient placed on full court order 02/18. Duty to warn was completed by SW, Discharge once patient psychiatrically stable.
[2024-03-04] MEDS: SERTRALINE 100 MG TAB PO SCH (08:24)
--- NOTE | 2024-03-04 11:16 | P.PN ---
Progress Note - Text Progress Note Date: 03/04/24 Interval History: Patient was seen today laying in bed was agreeable to speak to development writer today. Patient was a bit irritable today. He was fairly short in his answers, concrete, continues to state that he is not feeling well. He states that physically he is doing well however continues to state that he feels depressed and wants to kill himself and his sister. Claims that he is showering every couple of days, states that he is eating meals. Claims that he slept "not that good" last night. Continues to have disheveled in appearance poor hygiene and grooming. At this time he denies any auditory or visual hallucinations. Endorses homicidal ideations toward his sister, and suicidal ideations toward himself, no specific plan. MENTAL STATUS EXAM: General Appearance: Patient appears to be older than stated age. Has short hair and a big rivera. Laying in bed, with poor eye contact. Patient appears to have poor hygiene and grooming. Behavior: Patient is laying in bed with agitated behavior. [place] and Irritated. Improving mildly Speech: Patient's speech is fluent and nonpressured. Evasive and guarded improving mildly Mood/Affect: Patient states he is depressed and anxious. affect is congruent and constricted. Suicidality/Homicidality: Patient states he wants to , everyday, and he wants to kill his sister. Perceptions: Patient is not cooperative with assessment Though content/process:Patients thought process is concrete and guarded, concrete and poverty of content, focused on suicide Memory and concentration: AOX3, grossly intact for the purposes of this session. Judgment and insight: poor IMPRESSIONS: major depressive disorder, without psychotic features anxiety disorder, unspecified alcohol use disorder, severe nicotine dependance homelessness PLAN: -Patient is admitted under involuntary status to [facility] for stabilization of psychiatric symptoms and safety. Patient put on a full court order today. Patient stated that he will take the medications. -Medications : Zoloft 250 mg daily for mood/anxiety, Seroquel 200 mg nightly for insomnia/mood adjunct. Added Depakote 500 mg nightly for mood stabilization. Zyprexa IM if patient refuses zoloft or lithium, as patient is on a court order. Trazodone 50 mg nightly as needed for insomnia. Zofran every 8 hours as needed for nausea. Carafate and Protonix for acid reflux. -Ativan and Haldol PRN for agitation/aggression -thiamine, MVM for etoh use -NRT - nicotine patch -SW on board for discharge planning. Encourage patient to participate in groups to work on coping skills. Patient placed on full court order 02/18. Duty to warn was completed by SW, Discharge once patient psychiatrically stable. Lettuce Cutter will be speaking with risk-management and repossessor for further recommendations on patient's chronic homicidal and suicidal threats.
[2024-03-04] MEDS: DIVALPROEX ER 500 MG TAB.ER.24H PO SCH (20:21)
--- NOTE | 2024-03-05 11:45 | P.PN ---
Progress Note - Text Progress Note Date: 03/05/24 Interval History: Patient was seen today laying in bed was agreeable to speak to scientific technical writer today. Patient was a bit irritable today. He stated that he was "fine" today. When asked about his mood, patient stated that it is always bad, and he is always anxious. Patient makes no complaints of his stomach bothering him today. He did confess to scientific technical writer, "When I get out of here, I have enough money to get drunk and jump in the river to . I no longer want to kill my sisters, I just want to make her homeless." When scientific technical writer asked how he will do that, patient states, "I know where she lives, I know there is gas and matches in the garage, I know how to get into the garage". States that he is eating meals. Claims that he slept a little bit. Continues to have disheveled in appearance poor hygiene and grooming. At this time he denies any auditory or visual hallucinations. Denies homicidall ideations toward his sister today, and endorses suicidal ideations toward himself, to get drunk and jump in the river. MENTAL STATUS EXAM: General Appearance: Patient appears to be older than stated age. Has short hair and a big rivera. Laying in bed, with poor eye contact. Patient appears to have poor hygiene and grooming. Behavior: Patient is laying in bed with agitated behavior. [place] and Irritat ed. Speech: Patient's speech is fluent and nonpressured. Evasive and guarded i Mood/Affect: Patient states he is depressed and anxious. affect is congruent and constricted. Suicidality/Homicidality: Patient states he wants to , and denies homicidal ideations today Perceptions: Patient is not cooperative with assessment Though content/process:Patients thought process is concrete and guarded, c oncrete and poverty of content, focused on suicide Memory and concentration: AOX3, grossly intact for the purposes of this session. Judgment and insight: poor IMPRESSIONS: major depressive disorder, without psychotic features anxiety disorder, unspecified alcohol use disorder, severe nicotine dependance homelessness PLAN: -Patient is admitted under involuntary status to [facility] for stabilization of psychiatric symptoms and safety. Patient put on a full court order today. Patient stated that he will take the medications. -Medications : increase Zoloft 300 mg daily for mood/anxiety, Seroquel 200 mg nightly for insomnia/mood adjunct. Depakote 500 mg nightly for mood stabilization. Zyprexa IM if patient refuses zoloft or lithium, as patient is on a court order. Trazodone 50 mg nightly as needed for insomnia. Zofran every 8 hours as needed for nausea. Carafate and Protonix for acid reflux. -Ativan and Haldol PRN for agitation/aggression -thiamine, MVM for etoh use -NRT - nicotine patch -SW on board for discharge planning. Encourage patient to participate in groups to work on coping skills. Patient placed on full court order 02/18. Duty to warn was completed by SW, Discharge once patient psychiatrically stable. Monument Installer will be speaking with risk-management and conformal pad former for further recommendations on patient's chronic homicidal and suicidal threats.
[2024-03-06] MEDS: SERTRALINE 100 MG TAB PO SCH (08:26)
--- NOTE | 2024-03-06 11:14 | P.PN ---
Progress Note - Text Progress Note Date: 03/06/24 Interval History: Patient was seen today laying in bed was agreeable to speak to senior grant writer today. Patient was quite irritable today. He stated that he was "fine" today. When asked about his mood and anxiety, the patient stated very bluntly, "yes, I have them!" Patient stated that he is suicidal and homicidal today. Continues to state that he is irritable, continues to endorse depression. Continues to be isolated in his room. He does not states a specific plan today. States that he is eating meals. Claims that he slept a little bit. Continues to have disheveled in appearance poor hygiene and grooming. At this time he denies any auditory or visual hallucinations. Endorses homicidal ideations today, and endorses suicidal ideations toward himself, to get drunk and jump in the river. MENTAL STATUS EXAM: General Appearance: Patient appears to be older than stated age. Has short hair and a big rivera. Laying in bed, with poor eye contact. Patient appears to have poor hygiene and grooming. Behavior: Patient is laying in bed with agitated behavior. [place] and Irritated. Speech: Patient's speech is fluent and nonpressured. Evasive and guarded Mood/Affect: Patient states he is depressed and anxious. affect is congruent and constricted. Suicidality/Homicidality: Patient states he wants to , and denies homicidal ideations today Perceptions: Patient is not cooperative with assessment Though content/process:Patients thought process is concrete and guarded, concrete and poverty of content, focused on suicide Memory and concentration: AOX3, grossly intact for the purposes of this session. Judgment and insight: poor IMPRESSIONS: major depressive disorder, without psychotic features anxiety disorder, unspecified alcohol use disorder, severe nicotine dependance homelessness PLAN: -Patient is admitted under involuntary status to [facility] for stabilization of psychiatric symptoms and safety. Patient put on a full court order today. Patient stated that he will take the medications. -Medications :d/c Zoloft due to ineffectiveness add Cymbalta 30mg daily for mood/anxiety continue titrating up as tolerated, Seroquel 200 mg nightly for insomnia/mood adjunct. Depakote 500 mg nightly for mood stabilization. Zyprexa IM if patient refuses zoloft, as patient is on a court order. Trazodone 50 mg nightly as needed for insomnia. Zofran every 8 hours as needed for nausea. Carafate and Protonix for acid reflux. -Ativan and Haldol PRN for agitation/aggression -thiamine, MVM for etoh use -NRT - nicotine patch -SW on board for discharge planning. Encourage patient to participate in groups to work on coping skills. Patient placed on full court order 02/18. Duty to warn was completed by SW, Discharge once patient psychiatrically stable. Bit Welder will be speaking with risk-management and pumper head for further recommendations on patient's chronic homicidal and suicidal threats.
[2024-03-07] MEDS: DULoxetine HCL 30 MG CAPSULE.DR PO SCH (08:35)
--- NOTE | 2024-03-07 17:44 | P.PN ---
Progress Note - Text Progress Note Date: 03/07/24 Interval History: Patient was seen in dayroom and refused to participate in interview. He waved his hand to dismiss this telegraphic typewriter repairer, refused to engage in conversation, and did not make eye contact. Per nursing note, patient slept well last night. He has been compliant with medications and did not endorse any concerns when asked. MENTAL STATUS EXAM: General Appearance: Patient appears to be older than stated age. Has short hair and a big rivera. poor eye contact. Patient appears to have poor hygiene and grooming. Behavior: Agitated behavior. [place] and Irritated. Speech: Patient's speech is fluent and nonpressured. Evasive and guarded Mood/Affect: Patient states he is irritable. affect is congruent and constricted. Suicidality/Homicidality: Did not endorse Perceptions: Patient is not cooperative with assessment Though content/process:Patients thought process is concrete and guarded, concrete and poverty of content Memory and concentration: AOX3, grossly intact for the purposes of this session. Judgment and insight: poor IMPRESSIONS: major depressive disorder, without psychotic features anxiety disorder, unspecified alcohol use disorder, severe nicotine dependance homelessness PLAN: -Patient is admitted under involuntary status to [facility] for stabilization of psychiatric symptoms and safety. Patient put on a full court order today. Patient stated that he will take the medications. -Medications : Cymbalta 30mg daily for mood/anxiety continue titrating up as tolerated, Seroquel 200 mg nightly for insomnia/mood adjunct. Depakote 500 mg nightly for mood stabilization. Trazodone 50 mg nightly as needed for insomnia. Zofran every 8 hours as needed for nausea. Carafate and Protonix for acid reflux. -Ativan and Haldol PRN for agitation/aggression -thiamine, MVM for etoh use -NRT - nicotine patch -SW on board for discharge planning. Encourage patient to participate in groups to work on coping skills. Patient placed on full court order 02/18. Duty to warn was completed by SW, Discharge once patient psychiatrically stable. Safety plan with HI & SI prior to dc
--- NOTE | 2024-03-08 16:26 | P.PN ---
Progress Note - Text Progress Note Date: 03/08/24 Interval History: Patient was seen bedside and refused to participate in interview. He waved his hand to dismiss this automobile service writer, refused to engage in conversation, and did not make eye contact. Per nursing note, patient slept well last night. He has been compliant with medications and did not endorse any concerns when asked. He denied auditory hallucinations. He admitted to suicidal ideation but would not expand further. He denied homicidal ideation. He denied any side effects of the medications. MENTAL STATUS EXAM: General Appearance: Patient appears to be older than stated age. Has short hair and a big rivera. poor eye contact. Patient appears to have poor hygiene and grooming. Behavior: Agitated behavior. [place] and Irritated. Speech: Patient's speech is fluent and nonpressured. guarded Mood/Affect: Patient states he is irritable. affect is congruent and constricted. Suicidality/Homicidality: Did not endorse Perceptions: Patient is not cooperative with assessment Though content/process:Patients thought process is concrete and guarded, concrete and poverty of content Memory and concentration: AOX3, grossly intact for the purposes of this session. Judgment and insight: poor IMPRESSIONS: major depressive disorder, without psychotic features anxiety disorder, unspecified alcohol use disorder, severe nicotine dependance homelessness PLAN: -Patient is admitted under involuntary status to [facility] for stabilization of psychiatric symptoms and safety. Patient put on a full court order today. Patient stated that he will take the medications. -Medications : Increase Cymbalta to 60mg daily for mood/anxiety continue titrating up as tolerated, Seroquel 200 mg nightly for insomnia/mood adjunct. Depakote 500 mg nightly for mood stabilization. Trazodone 50 mg nightly as needed for insomnia. Zofran every 8 hours as needed for nausea. Carafate and Protonix for acid reflux. -Ativan and Haldol PRN for agitation/aggression -thiamine, MVM for etoh use -NRT - nicotine patch -SW on board for discharge planning. Encourage patient to participate in groups to work on coping skills. Patient placed on full court order 02/18. Duty to warn was completed by SW, Discharge once patient psychiatrically stable. Safety plan with homicidal ideation prior to dc
[2024-03-08 18:09] LABS: Appearance,Urine Clear (Clear); Bilirubin,Urine Negative (Negative); Blood,Urine Negative (Negative); Color,Urine Light Yellow; Glucose,Urine (UA) Negative (Negative); Ketones,Urine Trace (Negative); Leukocyte Esterase,Urine Negative (Negative); Nitrite,Urine Negative (Negative); PH, Urine 7.5 (5.0-8.0); Protein,Urine Negative (Negative); Specific Gravity,Urine 1.021 (1.001-1.035); Urobilinogen,Urine <2.0 mg/dL (<2.0)
[2024-03-08 23:15] LABS: Urine Alcohol Negative (Negative); Urine Barbiturate Negative (Negative); Urine Cocaine Negative (Negative); Urine Methadone Negative (Negative); Urine Opiates Negative (Negative); Urine Phencyclidine Negative (Negative)
[2024-03-09] MEDS: DULoxetine HCL 60 MG CAPSULE.DR PO SCH (08:37)
--- NOTE | 2024-03-09 11:11 | P.PN ---
Progress Note - Text Progress Note Date: 03/09/24 Interval History: Patient was seen today laying in bed was agreeable to speak to software writer today. Patient was less irritable today. He stated that he was tired today. Patient continues to state that he is suicidal, and when asked if he had a plan, he states that he already told software writer what his plan wan. Patient stated that he is suicidal and homicidal today. Continues to be irritable, continues to endorse depression. Continues to be isolated in his room, coming out very rarely to sit in the lounge. States that he is eating meals. Claims that he slept a little bit. Continues to have disheveled in appearance, very poor hygiene and grooming. At this time he denies any auditory or visual hallucinations. Endorses homicidal ideations today, and endorses suicidal ideations toward himself, to get drunk and jump in the river. MENTAL STATUS EXAM: General Appearance: Patient appears to be older than stated age. Has short hair and a big rivera. Laying in bed, with poor eye contact. Patient appears to have very poor hygiene and grooming. Behavior: Patient is laying in bed with agitated behavior. [place] and Irritated. Speech: Patient's speech is fluent and nonpressured. Evasive and guarded Mood/Affect: Patient states he is depressed and tired. affect is congruent and constricted. concrete Suicidality/Homicidality: Patient states he wants to , and endorses homicidal ideations today Perceptions: Patient is not cooperative with assessment Though content/process:Patients thought process is concrete and guarded, concrete and poverty of content, focused on suicide Memory and concentration: AOX3, grossly intact for the purposes of this session. Judgment and insight: poor IMPRESSIONS: major depressive disorder, without psychotic features anxiety disorder, unspecified alcohol use disorder, severe nicotine dependance homelessness PLAN: -Patient is admitted under involuntary status to [facility]HU for stabilization of psychiatric symptoms and safety. Patient put on a full court order today. Patient stated that he will take the medications. -Medications : Increase Cymbalta 60mg daily for mood/anxiety +30 mg nightly. Seroquel 200 mg nightly for insomnia/mood adjunct. Depakote 500 mg nightly for mood stabilization. Zyprexa IM if patient refuses zoloft, as patient is on a court order. Trazodone 50 mg nightly as needed for insomnia. Zofran every 8 hours as needed for nausea. Carafate and Protonix for acid reflux. -Ativan and Haldol PRN for agitation/aggression -thiamine, MVM for etoh use -NRT - nicotine patch -SW on board for discharge planning. Encourage patient to participate in groups to work on coping skills. Patient placed on full court order 02/18. Duty to warn was completed by SW, Discharge once patient psychiatrically stable. Buffing Line Set Up Worker will be speaking with risk-management and senior attorney for further recommendations on patient's chronic homicidal and suicidal threats.
[2024-03-09] MEDS: DULoxetine HCL 30 MG CAPSULE.DR PO SCH (20:17)
--- NOTE | 2024-03-10 12:01 | P.PN ---
Progress Note - Text Progress Note Date: 03/10/24 Interval History: [facility], was agreeable to speak to comic book writer today. Amalia ent seemed brighter today. He was sitting in the lounge, watching tv. He states that he is fine. He states that he has anxiety, however, he states that he always has anxiety. His depression has subsided at this time. He states he is no longer feeling suicidal or homicidal. Cover Remover asked him what has changed, patient said "I don't know, I'm just not feeling it anymore". States that he is eating meals. Claims that he had problems sleeping last night. Continues to have disheveled in appearance, very poor hygiene and grooming. At this time he denies any auditory or visual hallucinations. Denies homicidal ideations today, and denies suicidal ideations today as well. MENTAL STATUS EXAM: General Appearance: Patient appears to be older than stated age. Has short hair and a big rivera. Poor eye contact. Patient appears to have poor hygiene and grooming. Behavior: Patient is sitting, without agitated behavior. [place] Speech: Patient's speech is fluent and nonpressured. Evasive and guarded mildly improving Mood/Affect: Patient states he is fine. affect is congruent and constricted. concrete, mildly improving Suicidality/Homicidality: Patient denies homicidal and suicidal ideations today. Perceptions: Patient is not cooperative with assessment Though content/process:Patients thought process is concrete and guarded, concrete and poverty of content,mildly improving Memory and concentration: AOX3, grossly intact for the purposes of this session. Judgment and insight: poor, mildly improving IMPRESSIONS: major depressive disorder, without psychotic features anxiety disorder, unspecified alcohol use disorder, severe nicotine dependance homelessness PLAN: -Patient is admitted under involuntary status to [facility] for stabilization of psychiatric symptoms and safety. Patient put on a full court order today. Patient stated that he will take the medications. -Medications : increase Cymbalta 60mg bid for mood/anxiety , increase Seroquel 250 mg nightly for insomnia/mood adjunct. Depakote 500 mg nightly for mood stabilization. Zyprexa IM if patient refuses zoloft, as patient is on a court order. Trazodone 50 mg nightly as needed for insomnia. Zofran every 8 hours as needed for nausea. Carafate and Protonix for acid reflux. -Ativan and Haldol PRN for agitation/aggression -thiamine, MVM for etoh use -NRT - nicotine patch -SW on board for discharge planning. Encourage patient to participate in groups to work on coping skills. Patient placed on full court order 02/18. Duty to warn was completed by SW, Discharge once patient psychiatrically stable. Cover Remover will be speaking with risk-management and civil rights attorney for further recommendations on patient's chronic homicidal and suicidal threats.
[2024-03-10] MEDS: QUEtiapine 100 MG TAB PO SCH (20:22)
[2024-03-10] MEDS: DULoxetine HCL 60 MG CAPSULE.DR PO SCH (20:24)
--- NOTE | 2024-03-11 09:57 | P.PN ---
Progress Note - Text Progress Note Date: 03/11/24 Interval History: Patient was seen in his room today, and was agreeable to speak to ghost writer today. He was laying in bed, asleep, easily awoken. He states that he is fine. He states that he is no longer feeling depressed or anxious. He is no longer suicidal or homicidal. He stated that when he is discharged, he will return to his car. He is keeping to himself on the unit, and not going to any groups. States that he is eating meals. continues to be fairly isolative. Claims that he had no problems sleeping last night. Continues to have disheveled in appearance, and poor hygiene and grooming. At this time he denies any auditory or visual hallucinations. Denies homicidal ideations today, and denies suicidal ideations today as well. MENTAL STATUS EXAM: General Appearance: Patient appears to be older than stated age. Has short hair and a big rivera. Poor eye contact. Patient appears to have poor hygiene and grooming. Behavior: Patient is laying in bed, without agitated behavior. [place] improving Speech: Patient's speech is fluent and nonpressured. mildly improving Mood/Affect: Patient states he is fine. affect is congruent and constricted. concrete, mildly improving Suicidality/Homicidality: Patient denies homicidal and suicidal ideations today. Perceptions: Patient denies AH/VH Though content/process:Patients thought process is concrete and guarded, concrete and poverty of content,mildly improving Memory and concentration: AOX3, grossly intact for the purposes of this session. Judgment and insight: poor, mildly improving IMPRESSIONS: major depressive disorder, without psychotic features anxiety disorder, unspecified alcohol use disorder, severe nicotine dependance homelessness PLAN: -Patient is admitted under involuntary status to [facility]HU for stabilization of psychiatric symptoms and safety. Patient put on a full court order today. Patient stated that he will take the medications. -Medications : Cymbalta 60mg bid for mood/anxiety, Seroquel 250 mg nightly for insomnia/mood adjunct. Depakote 500 mg nightly for mood stabilization. Zyprexa IM if patient refuses zoloft, as patient is on a court order. Trazodone 50 mg nightly as needed for insomnia. Zofran every 8 hours as needed for nausea. Carafate and Protonix for acid reflux. -Ativan and Haldol PRN for agitation/aggression -thiamine, MVM for etoh use -NRT - nicotine patch -SW on board for discharge planning. Encourage patient to participate in groups to work on coping skills. Patient placed on full court order 02/18. Duty to warn was completed by CORDELIA. Business Process Analyst will be speaking with risk-management and civil attorney for further recommendations on patient's chronic homicidal and suicidal threats. Possibly discharge tomorrow, based on improved mood, and patient denying SI/HI
--- NOTE | 2024-03-12 11:14 | P.PN ---
Progress Note - Text Progress Note Date: 03/12/24 Interval History: Patient was seen in his room today, and was agreeable to speak to song writer today. He was laying in bed, asleep, easily awoken. He states that he is alright today. He states that he is no longer endorsing depression or anxiety. He is no longer suicidal or homicidal. He is keeping to himself on the unit, and not going to any groups. States that he is eating meals. continues to be fairly isolative. Claims that he had no problems sleeping last night. Continues to have disheveled in appearance, and poor hygiene and grooming. At this time he denies any auditory or visual hallucinations. Denies homicidal ideations today, and denies suicidal ideations today as well. MENTAL STATUS EXAM: General Appearance: Patient appears to be older than stated age. Has short hair and a big rivera. Poor eye contact. Patient appears to have poor hygiene and grooming. Behavior: Patient is laying in bed, without agitated behavior. [place] improving Speech: Patient's speech is fluent and nonpressured. mildly improving Mood/Affect: Patient states he is fine. affect is congruent and constricted. concrete, mildly improving Suicidality/Homicidality: Patient denies homicidal and suicidal ideations today. Perceptions: Patient denies AH/VH Though content/process:Patients thought process is concrete and guarded, concrete and poverty of content,mildly improving Memory and concentration: AOX3, grossly intact for the purposes of this session. Judgment and insight: poor, mildly improving IMPRESSIONS: major depressive disorder, without psychotic features anxiety disorder, unspecified alcohol use disorder, severe nicotine dependance homelessness PLAN: -Patient is admitted under involuntary status to MHU for stabilization of psychiatric symptoms and safety. Patient put on a full court order today. Patient stated that he will take the medications. -Medications : Cymbalta 60mg bid for mood/anxiety, increase Seroquel 300 mg nightly for insomnia/mood adjunct. Depakote 500 mg nightly for mood stabilization. Zyprexa IM if patient refuses meds, as patient is on a court order. Trazodone 50 mg nightly as needed for insomnia. Zofran every 8 hours as needed for nausea. Carafate and Protonix for acid reflux. -Ativan and Haldol PRN for agitation/aggression -thiamine, MVM for etoh use -NRT - nicotine patch -SW on board for discharge planning. Encourage patient to participate in groups to work on coping skills. Patient placed on full court order 02/18. Duty to warn was completed by CORDELIA. Will look into manager long term care psych facility/state psych hospitalization for further treatment as recommended by hospital risk management vs crisis bed with ACT team, due to patients severe condition and treatment resistant depression. Waiting for sisters PPO to arrive, before we can discharge.
[2024-03-12] MEDS: QUEtiapine 100 MG TAB PO SCH (20:20)
--- NOTE | 2024-03-13 11:17 | P.PN ---
Progress Note - Text Progress Note Date: 03/13/24 Interval History: Patient was seen in his room today, and was agreeable to speak to va underwriter today. He was laying in bed, asleep, easily awoken. He states that he is fine today. He is no longer endorsing depression, still claims to have anxiety. He is no longer suicidal or homicidal. He is keeping to himself on the unit, and not going to any groups. States that he is eating meals. continues to be fairly isolative. Claims that he had no problems sleeping last night. Continues to have disheveled in appearance, and poor hygiene and grooming. States that he is showering, however, this has not been documented by nursing staff. At this time he denies any auditory or visual hallucinations. Denies homicidal ideations today, and denies suicidal ideations today as well. MENTAL STATUS EXAM: General Appearance: Patient appears to be older than stated age. Has short hair and a big rivera. Poor eye contact. Patient appears to have poor hygiene and grooming. Behavior: Patient is laying in bed, without agitated behavior. [place] improving Speech: Patient's speech is fluent and nonpressured. mildly improving Mood/Affect: Patient states he is fine. affect is congruent and constricted. concrete, mildly improving Suicidality/Homicidality: Patient denies homicidal and suicidal ideations today. Perceptions: Patient denies AH/VH Though content/process:Patients thought process is concrete and guarded, concrete and poverty of content,mildly improving Memory and concentration: AOX3, grossly intact for the purposes of this session. Judgment and insight: poor, mildly improving IMPRESSIONS: major depressive disorder, without psychotic features anxiety disorder, unspecified alcohol use disorder, severe nicotine dependance homelessness PLAN: -Patient is admitted under involuntary status to MHU for stabilization of psychiatric symptoms and safety. Patient put on a full court order today. Patient stated that he will take the medications. -Medications : Cymbalta 60mg bid for mood/anxiety, Seroquel 300 mg nightly for insomnia/mood adjunct. Depakote 500 mg nightly for mood stabilization. Zyprexa IM if patient refuses meds, as patient is on a court order. Trazodone 50 mg nightly as needed for insomnia. Zofran every 8 hours as needed for nausea. Carafate and Protonix for acid reflux. -Ativan and Haldol PRN for agitation/aggression -thiamine, MVM for etoh use -NRT - nicotine patch -SW on board for discharge planning. Encourage patient to participate in groups to work on coping skills. Patient placed on full court order 02/18. Duty to warn was completed by CORDELIA. Will look into jail psych facility/state psych hospitalization for further treatment as recommended by hospital risk management vs crisis bed with ACT team, due to patients severe condition and treatment resistant depression. Waiting for sisters PPO to arrive, before we can discharge.
--- NOTE | 2024-03-14 19:55 | P.PN ---
Progress Note - Text Progress Note Date: 03/14/24 Interval History: Patient was seen in activity room and was refusing to participate in interview with this provider. However, he denied any acute concerns. He shook his head when asked if he was experiencing any suicidal ideation, homicidal ideation, auditory and visual hallucinations. He denied any concerns with medications and has been medication compliant. MENTAL STATUS EXAM: General Appearance: Patient appears to be older than stated age. Has short hair and a big rivera. Poor eye contact. Patient appears to have poor hygiene and grooming. Behavior: Patient is seated without agitated behavior. [place] improving Speech: Patient's speech is unable to be assessed Mood/Affect: Unable to assess Suicidality/Homicidality: Patient denies homicidal and suicidal ideations today. Perceptions: Patient denies AH/VH Though content/process:Patients thought process is concrete and guarded, concrete and poverty of content,mildly improving Memory and concentration: AOX3, grossly intact for the purposes of this session. Judgment and insight: poor, mildly improving IMPRESSIONS: major depressive disorder, without psychotic features anxiety disorder, unspecified alcohol use disorder, severe nicotine dependance homelessness PLAN: -Patient is admitted under involuntary status to MHU for stabilization of psychiatric symptoms and safety. Patient put on a full court order today. Patient stated that he will take the medications. -Medications : Cymbalta 60mg bid for mood/anxiety, Seroquel 300 mg nightly for insomnia/mood adjunct. Depakote 500 mg nightly for mood stabilization. Zyprexa IM if patient refuses meds, as patient is on a court order. Trazodone 50 mg nightly as needed for insomnia. Zofran every 8 hours as needed for nausea. Carafate and Protonix for acid reflux. -Ativan and Haldol PRN for agitation/aggression -thiamine, MVM for etoh use -NRT - nicotine patch -SW on board for discharge planning. Encourage patient to participate in groups to work on coping skills. Patient placed on full court order 02/18. Duty to warn was completed by CORDELIA. Will look into assembly riveter psych facility/state psych hospitalization for further treatment as recommended by hospital risk management vs crisis bed with ACT team, due to patients severe condition and treatment resistant depression. Waiting for sisters PPO to arrive, before we can discharge.
--- NOTE | 2024-03-15 18:01 | P.PN ---
Progress Note - Text Progress Note Date: 03/15/24 Interval History: Patient was seen bedside and was refusing to participate in interview with this provider. Would not answer any questions and said "f off." MENTAL STATUS EXAM: General Appearance: Patient appears to be older than stated age. Has short hair and a big rivera. Poor eye contact. Patient appears to have poor hygiene and grooming. Behavior: Patient is laying down without agitated behavior. [place] improving Speech: Patient's speech is unable to be assessed Mood/Affect: Unable to assess Suicidality/Homicidality: Unable to assess Perceptions: Unable to assess Though content/process:Unable to assess Memory and concentration: Unable to assess Judgment and insight: poor IMPRESSIONS: major depressive disorder, without psychotic features anxiety disorder, unspecified alcohol use disorder, severe nicotine dependance homelessness PLAN: -Patient is admitted under involuntary status to MHU for stabilization of psychiatric symptoms and safety. Patient put on a full court order today. Patient stated that he will take the medications. -Medications : Cymbalta 60mg bid for mood/anxiety, Seroquel 300 mg nightly for insomnia/mood adjunct. Depakote 500 mg nightly for mood stabilization. Zyprexa IM if patient refuses meds, as patient is on a court order. Trazodone 50 mg nigh tly as needed for insomnia. Zofran every 8 hours as needed for nausea. Carafate and Protonix for acid reflux. -Ativan and Haldol PRN for agitation/aggression -thiamine, MVM for etoh use -NRT - nicotine patch -SW on board for discharge planning. Encourage patient to participate in groups to work on coping skills. Patient placed on full court order 02/18. Duty to warn was completed by CORDELIA. Will look into terminal makeup operator psych facility/state psych hospitalization for further treatment as recommended by hospital risk management vs crisis bed with ACT team, due to patients severe condition and treatment res istant depression. Waiting for sisters PPO to arrive, before we can discharge.
--- NOTE | 2024-03-16 10:08 | P.PN ---
Progress Note - Text Progress Note Date: 03/16/24 Interval History: Patient was seen in his room today, and was agreeable to speak to underwriter today. He was laying in bed, asleep, easily awoken. Patient continues to be fairly concrete. Claims that he is not feeling well today, states that he was feeling nauseous late last night. He was asking for other medications or increase in his GERD medications. He is claiming that he is feeling suicidal today, does not have a plan denies any homicidal ideations. He is not going to any groups. States that he is eating meals. continues to be fairly isolative. Claims that he slept fairly well last night. Continues to have disheveled in appearance, and poor hygiene and grooming. At this time he denies any auditory or visual hallucinations. MENTAL STATUS EXAM: General Appearance: Patient appears to be older than stated age. Has short hair and a big rivera. Poor eye contact. Patient appears to have poor hygiene and grooming. Behavior: Patient is laying in bed, without agitated behavior. [place] improving Speech: Patient's speech is fluent and nonpressured. mildly improving Mood/Affect: Patient states he is fine. affect is congruent and constricted. concrete, mildly improving Suicidality/Homicidality: Patient denies homicidal and suicidal ideations today. Perceptions: Patient denies AH/VH Though content/process:Patients thought process is concrete and guarded, concrete and poverty of content, mildly improving Memory and concentration: AOX3, grossly intact for the purposes of this session. Judgment and insight: poor, mildly improving IMPRESSIONS: major depressive disorder, without psychotic features anxiety disorder, unspecified alcohol use disorder, severe nicotine dependance homelessness PLAN: -Patient is admitted under involuntary status to MHU for stabilization of psychiatric symptoms and safety. Patient put on a full court order today. Patient stated that he will take the medications. -Medications : Cymbalta 60mg bid for mood/anxiety, Seroquel 300 mg nightly for insomnia/mood adjunct. Depakote 500 mg nightly for mood stabilization. Zyprexa IM if patient refuses meds, as patient is on a court order. Trazodone 50 mg nightly as needed for insomnia. Zofran every 8 hours as needed for nausea. Carafate and Protonix for acid reflux. -Ativan and Haldol PRN for agitation/aggression -thiamine, MVM for etoh use -NRT - nicotine patch -SW on board for discharge planning. Encourage patient to participate in groups to work on coping skills. Patient placed on full court order 02/18. Duty to warn was completed by CORDELIA. Will look into termite renewal inspector psych facility/state psych hospitalization for further treatment as recommended by hospital risk management vs crisis bed with ACT team, due to patients severe condition and treatment resistant depression. Waiting for sisters PPO to arrive, before we can discharge.
[2024-03-16] MEDS: PANTOPRAZOLE 40 MG TABLET PO SCH (17:30)
--- NOTE | 2024-03-17 09:42 | P.PN ---
Progress Note - Text Progress Note Date: 03/17/24 Interval History: Patient was seen in his room today, and was agreeable to speak to scientific technical writer today. He was laying in bed, covered up. Patient continues to be concrete. Claims that he is feeling very anxious and depressed today. He was given a copy of the PPO his sister filed from our pocket secretary assembler. He claims he is feeling suicidal and homicidal toward his sister, because the PPO states that he threatened his father, and he claims he did not. He is not going to any groups. States that he is eating meals. continues to be fairly isolative. Claims that he slept well last night. Continues to have disheveled in appearance, and poor hygiene and grooming. At this time he denies any auditory or visual hallucinations. MENTAL STATUS EXAM: General Appearance: Patient appears to be older than stated age. Has short hair and a big rivera. Poor eye contact. Patient appears to have poor hygiene and grooming. Behavior: Patient is laying in bed, without agitated behavior. [place] improving Speech: Patient's speech is fluent and nonpressured. mildly improving Mood/Affect: Patient states he is depressed and anxious. affect is congruent and constricted. concrete, mildly improving Suicidality/Homicidality: Patient endorsing homicidal towards his sister and suicidal ideations today. Perceptions: Patient denies AH/VH Though content/process:Patients thought process is concrete and guarded, concrete and poverty of content, mildly improving Memory and concentration: AOX3, grossly intact for the purposes of this session. Judgment and insight: poor, mildly improving IMPRESSIONS: major depressive disorder, without psychotic features anxiety disorder, unspecified alcohol use disorder, severe nicotine dependance homelessness PLAN: -Patient is admitted under involuntary status to MHU for stabilization of psychiatric symptoms and safety. Patient put on a full court order today. Patient stated that he will take the medications. -Medications : Cymbalta 60 mg bid for mood/anxiety, Seroquel 300 mg nightly for insomnia/mood adjunct. Depakote 500 mg nightly for mood stabilization. Zyprexa IM if patient refuses meds, as patient is on a court order. Trazodone 50 mg nightly as needed for insomnia. Zofran every 8 hours as needed for nausea. Carafate and Protonix for acid reflux. -Ativan and Haldol PRN for agitation/aggression -thiamine, MVM for etoh use -NRT - nicotine patch -SW on board for discharge planning. Encourage patient to participate in groups to work on coping skills. Patient placed on full court order 02/18. Duty to warn was completed by CORDELIA. Will look into local intermodal truck driver psych facility/state psych hospitalization for further treatment as recommended by hospital risk management vs crisis bed with ACT team, due to patients severe condition and treatment resistant depression. Patient was served a PPO filed by his sister, for threats.
--- NOTE | 2024-03-18 10:14 | P.PN ---
Progress Note - Text Progress Note Date: 03/18/24 Interval History: Patient was seen in his room today, and was agreeable to speak to service writer today. He was laying in bed, covered up. Patient continues to be concrete. Patient is mildly irritable today. He states that he does not feel good, and that he just wants to . He claims he is feeling suicidal and homicidal toward his sister, He is isolating to his room, only coming out for meds and meals. He is not going to any groups. States that he is eating meals. Claims that he did not sleep well last night. Continues to have disheveled in appearance, and poor hygiene and grooming. At this time he denies any auditory or visual hallucinations. MENTAL STATUS EXAM: General Appearance: Patient appears to be older than stated age. Has short hair and a big rivera. Poor eye contact. Patient appears to have poor hygiene and grooming. Behavior: Patient is laying in bed, without agitated behavior. [place] improving Speech: Patient's speech is fluent and nonpressured. mildly improving Mood/Affect: Patient states he is depressed and anxious. affect is congruent and constricted. concrete, mildly improving Suicidality/Homicidality: Patient endorsing homicidal towards his sister and suicidal ideations today. Perceptions: Patient denies AH/VH Though content/process:Patients thought process is concrete and guarded, concrete and poverty of content, mildly improving Memory and concentration: AOX3, grossly intact for the purposes of this session. Judgment and insight: poor, mildly improving IMPRESSIONS: major depressive disorder, without psychotic features anxiety disorder, unspecified alcohol use disorder, severe nicotine dependance homelessness PLAN: -Patient is admitted under involuntary status to MHU for stabilization of psychiatric symptoms and safety. Patient put on a full court order today. Patient stated that he will take the medications. -Medications : Cymbalta 60 mg bid for mood/anxiety, Seroquel 300 mg nightly for insomnia/mood adjunct. start wellbutrin xl 150 mg daily as mood adjunct. Depakote 500 mg nightly for mood stabilization. Zyprexa IM if patient refuses meds, as patient is on a court order. Trazodone 50 mg nightly as needed for insomnia. Zofran every 8 hours as needed for nausea. Carafate and Protonix for acid reflux. -Ativan and Haldol PRN for agitation/aggression -thiamine, MVM for etoh use -NRT - nicotine patch -SW on board for discharge planning. Encourage patient to participate in groups to work on coping skills. Patient placed on full court order 02/18. Duty to warn was completed by CORDELIA. Will look into intermediate psych facility/state psych hospitalization for further treatment as recommended by hospital risk management vs crisis bed with ACT team, due to patients severe condition and treatment resistant depression. Patient was served a PPO filed by his sister, for threats.
[2024-03-19] MEDS: buPROPion XL 150 MG TAB.ER.24H PO SCH (08:26)
--- NOTE | 2024-03-19 10:06 | P.PN ---
Progress Note - Text Progress Note Date: 03/19/24 Interval History: Patient was seen in his room today, and was agreeable to speak to internal communications writer today. He was laying in bed, covered up. He states that his mood is still "not good". He claims that he is only having thoughts of hurting himself today, no specific plan. Denies any homicidal ideations. Claims that he did sleep "a little bit". Patient continues to be concrete. Patient is mildly irritable today. he is coming out for meds and meals. He is not going to any groups. Continues to barnes ve disheveled in appearance, and poor hygiene and grooming. At this time he denies any auditory or visual hallucinations. MENTAL STATUS EXAM: General Appearance: Patient appears to be older than stated age. Has short hair and a big rivera. Poor eye contact. Patient appears to have poor hygiene and grooming. Behavior: Patient is laying in bed, without agitated behavior. [place] improving Speech: Patient's speech is fluent and nonpressured. mildly improving Mood/Affect: Patient states he is depressed and anxious. affect is congruent and constricted. concrete, mildly improving Suicidality/Homicidality: Patient endorsing suicidal thoughts today, no specific plan. Denies any homicidal ideations. Perceptions: Patient denies AH/VH Though content/process:Patients thought process is concrete and guarded, concrete and poverty of content, mildly improving Memory and concentration: AOX3, grossly intact for the purposes of this session. Judgment and insight: poor, mildly improving IMPRESSIONS: major depressive disorder, without psychotic features anxiety disorder, unspecified alcohol use disorder, severe nicotine dependance homelessness PLAN: -Patient is admitted under involuntary status to [facility] for stabilization of psychiatric symptoms and safety. Patient put on a full court order today. Patient stated that he will take the medications. -Medications : Cymbalta 60 mg bid for mood/anxiety, Seroquel 300 mg nightly for insomnia/mood adjunct. wellbutrin xl 150 mg daily as mood adjunct. Depakote 500 mg nightly for mood stabilization. Zyprexa IM if patient refuses meds, as patient is on a court order. Trazodone 50 mg nightly as needed for insomnia. Zofran every 8 hours as needed for nausea. Carafate and Protonix for acid reflux. -Ativan and Haldol PRN for agitation/aggression -thiamine, MVM for etoh use -NRT - nicotine patch -SW on board for discharge planning. Encourage patient to participate in groups to work on coping skills. Patient placed on full court order 02/18. Duty to warn was completed by CORDELIA. Will look into senior care psych facility/state psych hospitalization for further treatment as recommended by hospital risk management vs crisis bed with ACT team, due to patients severe condition and treatment resistant depression. Patient was served a PPO filed by his sister, for threats.
--- NOTE | 2024-03-20 09:29 | P.PN ---
Progress Note - Text Progress Note Date: 03/20/24 Interval History: Patient was seen in his room today, and was agreeable to speak to procedure writer today. He was laying in bed, covered up. He claims that he is not feeling good today. He was fairly irritable today with procedure writer. Continues to be fairly concrete. States that he is still feeling suicidal no intent or plan, admits to homicidal feelings as well. Claims that he did sleep "a little bit", appetite is fair. Patient continues to be concrete. he is coming out for meds and meals. He is not going to any groups. Continues to have disheveled in appearance, and poor hygiene and grooming. At this time he denies any auditory or visual hallucinations. MENTAL STATUS EXAM: General Appearance: Patient appears to be older than stated age. Has short hair and a big rivera. Poor eye contact. Patient appears to have poor hygiene and grooming. Behavior: Patient is laying in bed, without agitated behavior. [place] improving Speech: Patient's speech is fluent and nonpressured. mildly improving Mood/Affect: Patient states he is depressed and anxious. affect is congruent and constricted. concrete, mildly improving Suicidality/Homicidality: Patient endorsing suicidal thoughts today, no specific plan. Denies any homicidal ideations. Perceptions: Patient denies AH/VH Though content/process:Patients thought process is concrete and guarded, concrete and poverty of content, mildly improving Memory and concentration: AOX3, grossly intact for the purposes of this session. Judgment and insight: poor, mildly improving IMPRESSIONS: major depressive disorder, without psychotic features anxiety disorder, unspecified alcohol use disorder, severe nicotine dependance homelessness PLAN: -Patient is admitted under involuntary status to [facility] for stabilization of psychiatric symptoms and safety. Patient put on a full court order today. Patient stated that he will take the medications. -Medications : Cymbalta 60 mg bid for mood/anxiety, Seroquel 300 mg nightly for insomnia/mood adjunct. increase wellbutrin xl 300 mg daily as mood adjunct. hold Depakote for now. Zyprexa IM if patient refuses meds, as patient is on a court order. Trazodone 50 mg nightly as needed for insomnia. Zofran every 8 hours as needed for nausea. Carafate and Protonix for acid reflux. -Ativan and Haldol PRN for agitation/aggression -thiamine, MVM for etoh use -NRT - nicotine patch -SW on board for discharge planning. Encourage patient to participate in groups to work on coping skills. Patient placed on full court order 02/18. Duty to warn was completed by CORDELIA. Will look into shelter psych facility/state psych hospitalization for further treatment as recommended by hospital risk management vs crisis bed with ACT team, due to patients severe condition and treatment resistant depression. Patient was served a PPO filed by his sister, for threats.
[2024-03-21] MEDS: buPROPion XL 300 MG TAB.ER.24H PO SCH (08:34)
--- NOTE | 2024-03-22 20:21 | P.PN ---
Progress Note - Text Progress Note Date: 03/21/24 Interval history: I evaluated patient on 03/21/24. He was found isolating to his room, laying in bed in the dark. On assessment, he is irritable and dismissive, does not want to be bothered with questions. At this time patient denies any suicidal or homicidal ideations intent or plan. Denies any auditory or visual hallucinations. Patient denies any side effects from the medications and has been compliant with meds. He has received PRN Ativan 1 mg po x 2 each day for anxiety. Mental status exam: General Appearance: Patient appears to be older than stated age, disheveled, long rivera. Behavior: He is irritable and dismissive with staff and peers. Isolates to his room, withdrawn. Speech: Patient's speech is fluent and non-pressured. Mood/Affect: Mood is improving mildly, affect is congruent and constricted. Suicidality/Homicidality: Patient denies having any suicidal or homicidal ideation intent or plan. Perceptions: Patient denies any auditory or visual hallucinations. Though content/process: He does not express delusional thought content to me today, and thought process is simplistic, poverty of thought. Memory and concentration: AOX3, grossly intact for the purposes of this session Judgment and insight: poor Assessment/Plan: Continue with current diagnosis. Patient continues to meet criteria for inpatient psychiatric admission for symptom stabilization and safety. Patient will be maintained on current psychotropic medication regimen. Monitor for medication compliance and for any psychotropic medication side effects. Will continue to monitor ongoing response to treatment. Encouraged participation in milieu.
--- NOTE | 2024-03-22 20:28 | P.PN ---
Progress Note - Text Progress Note Date: 03/22/24 Interval history: Patient was found isolating to his room again today, laying in bed in the dark. On assessment, he is irritable and dismissive again today, does not want to engage in assessment, states he already talked to the nurses today and wants to be left alone. At this time patient denies any suicidal or homicidal ideations intent or plan. Denies any auditory or visual hallucinations. Patient denies any side effects from the medications and has been compliant with meds. He has received PRN Ativan 1 mg po x 2 again today for anxiety. Mental status exam: General Appearance: Patient appears to be older than stated age, disheveled, long rivera. Behavior: He is irritable and dismissive with staff and peers. Isolates to his room, withdrawn. Speech: Patient's speech is fluent and non-pressured. Mood/Affect: Mood is improving mildly, affect is congruent and constricted. Suicidality/Homicidality: Patient denies having any suicidal or homicidal ideation intent or plan. Perceptions: Patient denies any auditory or visual hallucinations. Though content/process: He does not express delusional thought content to me today, and thought process is simplistic, poverty of thought. Memory and concentration: AOX3, grossly intact for the purposes of this session Judgment and insight: poor Assessment/Plan: Continue with current diagnosis. Patient continues to meet criteria for inpatient psychiatric admission for symptom stabilization and safety. Patient will be maintained on current psychotropic medication regimen. Will consider restarting Depakote for mood stabilization; unclear why this was discontinued last month. Encourage patient to cooperate with assessments. Will need to discuss different mood stabilizers with patient when he is willing to engage in assessment. Monitor for medication compliance and for any psychotropic medication side effects. Will continue to monitor ongoing response to treatment. Encouraged participation in milieu.
--- NOTE | 2024-03-23 19:33 | P.PN ---
Progress Note - Text Progress Note Date: 03/23/24 Interval history: Patient was found isolating to his room again today, laying in bed in the dark. On assessment, he continues to be irritable, dismissive, puts minimal effort into evaluation and continues to lay down in bed with eyes closed instead of engaging in assessment. He claims he is still suicidal today, and is suicidal "everyday...why don't you let me out so I can do it?!". He denies any auditory or visual hallucinations. He denies homicidal ideation on my evaluation, but per nurse report patient reported wanting to kill his sister who has a PPO against him. Patient has been compliant with prescribed meds, however on discussing mood stabilizers with him today, he refused to resume Depakote or start a trial of any other mood stabilizer. He has received PRN Ativan 1 mg po x 1 for anxiety so far today. Mental status exam: General Appearance: Patient appears to be older than stated age, disheveled, long rivera. Behavior: He is irritable and dismissive with staff and peers. Isolates to his room, withdrawn. Speech: Patient's speech is fluent and non-pressured. Mood/Affect: Mood is irritable, affect is congruent and constricted. Suicidality/Homicidality: Reports having suicidal ideation everyday. Reported homicidal ideation (to nurse) of wanting to kill his sister who has a PPO against him. Perceptions: Patient denies any auditory or visual hallucinations. Though content/process: He does not express delusional thought content to me today, and thought process is argumentative and dismissive. Memory and concentration: AOX3, grossly intact for the purposes of this session Judgment and insight: very poor Assessment/Plan: Continue with current diagnosis. Patient continues to meet criteria for inpatient psychiatric admission for symptom stabilization and safety. Patient will be maintained on current psychotropic medication regimen. He is ref using a mood stabilizer at this time. Encourage patient to cooperate with assessments and mood stabilizer to improve his mood. Monitor for medication compliance and for any psychotropic medication side effects. Will continue to monitor ongoing response to treatment. Encouraged participation in milieu.
--- NOTE | 2024-03-24 13:35 | P.PN ---
Progress Note - Text Progress Note Date: 03/24/24 Interval History: Patient briefly awoke to speak with typewriter operator automatic. He kept his eyes closed for the dur ation of our interaction. He reports feeling "normal." When asked more about this he stated "I still feel like killing myself." He did not elaborate and was minimally engaged in the conversation aside from brief answers to questions. When asked about homicidal ideation he stated "not yet." Patient denies any auditory, visual hallucinations and denies any paranoia or delusions. Patient did report having diarrhea for the last three days. He stated he has previously tried immodium with no benefit. He also notes feeling nauseous though no vomiting. He feels he has trouble catching his breath since this started though breathing was calm and not laborious when observed today. He was generally disengaged. He did have lorazepam once this morning for anxiety. Mental Status Exam: General Appearance: [Patient appears to be older than stated age. Grooming and hygiene are poor. Patient is malodorous. Behavior: Patient is lying down without any agitated behavior. No eye contact. Eyes remained closed throughout conversation. Speech: Patient's speech is fluent and nonpressured. Low volume. Paucity of speech. Mood/Affect: Mood is "normal", affect is congruent and constricted. Seems irritable. Suicidality/Homicidality: Patient denies having homicidal ideation intent or plan. Patient endorses ongoing suicidal ideation, though denies intent or plan. Perceptions: Patient denies any visual hallucinations and denies any auditory hallucinations Though content/process: There is no evidence of any delusional thought content and thought process is linear and goal-directed. Memory and concentration: Grossly intact for the purposes of this session Judgment and insight: Poor Assessment Major depressive disorder, without psychotic features Alcohol use disorder, severe Unspecified anxiety disorder Nicotine dependence Plan: - Patient is admitted under involuntary status to [facility] for stabilization of psychiatric symptoms and safety. Patient put on a full court order. Patient has been adherent with medications. - Medications : - Cymbalta 60 mg bid for mood/anxiety - Seroquel 300 mg nightly for insomnia/mood adjunct - Continue Wellbutrin XL 300 mg daily as mood adjunct - Holding Depakote for now; will continue to explore mood stabilizers with patient though he has been reluctant - Zyprexa IM if patient refuses meds, as patient is on a court order - Trazodone 50 mg nightly as needed for insomnia - Zofran every 8 hours as needed for nausea - Carafate and Protonix for acid reflux - Ativan and Haldol PRN for agitation/aggression - Multivitamin and thiamine for alcohol use disorder - NRT - nicotine patch available -SW on board for discharge planning. Encourage patient to participate in groups to work on coping skills. Patient placed on full court order 02/18. Team is currently working on possible state psych hospitalization for further treatment as recommended by hospital risk management vs crisis bed with ACT team, due to patients severe condition and treatment resistant depression. Patient was previously served a PPO filed by his sister, for threats (per review of prior notes by Dr. Nash)
--- NOTE | 2024-03-25 15:06 | P.PN ---
Progress Note - Text Progress Note Date: 03/25/24 Interval History: Patient was seen in his room this morning he was agreeable to talking more today than yesterday. When asked about his mood he said it is "like it is always I want to ." He did have some concern regarding the tremor that is predominant in his left hand but also in his right hand he notes that this is worse with movement. The diarrhea he previously discussed yesterday is better, but he does continue to note issues with GERD symptoms and nausea. His appetite "comes and goes" and his energy is presently low. He explained that while he is in his room in his bed most of the day he is not asleep as it has been difficult for him to sleep during the night and nap during the day. Though per notes and nursing notes that he appears to have gotten 6 hours of sleep last night. When asked about suicidal ideation he continues to endorse wanting to . He said that he has thoughts about harming his sister though does not think he would act on these and did mention that he was served with a protective order during this hospitalization, so he cannot get near her. He also shared that he does not think she is the cause of his depression though she did not help but he did not elaborate on what he thinks the cause of his depression is. Patient denies any side effects from the medications and has been compliant with meds. Mental Status Exam: General Appearance: Patient appears to be stated age is alert, directable, and reasonably cooperative. Behavior: Patient is calmly lying down without any agitated behavior. Speech: Patient's speech is fluent and nonpressured, though muffled as he is talking while lying down. Mood/Affect: Mood is "like it always is...I want to .", affect is congruent and constricted. Suicidality/Homicidality: Patient denies having any homicidal intent or plan. Perceptions: Patient denies any visual hallucinations and denies any auditory hallucinations Though content/process: There is no evidence of any delusional thought content and thought process is linear and goal-directed. Memory and concentration: AOX3, grossly intact for the purposes of this session Judgment and insight: Poor Impression: Major Guthrie is a 48-year-old man with a history of major depressive disorder and severe alcohol use disorder who is presently admitted on a court order. There has been prior discussion regarding his medication regimen and the potential benefit for a mood stabilizer. However Mr. Lui has been reluctant to revisit the Depakote or lithium that he had previously been treated with. Today we discussed the potential addition of lamotrigine as it can be of significant value in treatment resistant depression and he was open to this we did talk about potential risks of the medication namely Peters-Roddy the rare but potentially fatal rash that can occur. He was advised to be mindful of any changes in his skin that may occur while he is on this medication and to please report those changes to staff members. He did not have any other questions about this medication explained that we reduce the risk of Peters-Roddy by titrating it slowly and initiating at a very low dose. Major depressive disorder, without psychotic features Alcohol use disorder, severe Unspecified anxiety disorder Nicotine dependence Plan: - Patient is admitted under involuntary status to [facility] for stabilization of psychiatric symptoms and safety. Patient put on a full court order. Patient has been adherent with medications. - Medications : - Start Lamotrigine 25 mg daily x 14 days, then can continue titration. - Cymbalta 60 mg bid for mood/anxiety - Seroquel 300 mg nightly for insomnia/mood adjunct - Continue Wellbutrin XL 300 mg daily as mood adjunct - Zyprexa IM if patient refuses meds, as patient is on a court order - Trazodone 50 mg nightly as needed for insomnia - Zofran every 8 hours as needed for nausea - Carafate and Protonix for acid reflux - Ativan and Haldol PRN for agitation/aggression - Multivitamin and thiamine for alcohol use disorder - NRT - nicotine patch available -SW on board for discharge planning. Encourage patient to participate in groups to work on coping skills. Patient placed on full court order 02/18. Team is currently working on possible state psych hospitalization for further treatment as recommended by hospital risk management vs crisis bed with ACT team, due to patients severe condition and treatment resistant depression. Patient was previously served a PPO filed by his sister, for threats (per review of prior notes by Dr. Nash)
[2024-03-25] MEDS: lamoTRIgine 25 MG TAB PO SCH (16:06)
--- NOTE | 2024-03-26 11:08 | P.PN ---
Progress Note - Text Progress Note Date: 03/26/24 Interval History: Patient was seen while lying in bed in his room but was agreeable to a convers ation. He described his mood as "fine" today. He notes that it is difficult for him to sleep at night but does find himself staying in bed much of the day. He started lamotrigine yesterday and has not had any side effects or concerns to this point. Per nursing staff he did spend some time in the lounge yesterday evening. When asked about suicidal ideation he stated "I always have those". He denies having homicidal ideation and stated "not today".Patient denies any side effects from the medications and has been compliant with meds. Mental Status Exam: General Appearance: Patient appears to be stated age is alert, directable, and reasonably cooperative. Behavior: Patient is calmly lying down without any agitated behavior. Eyes are generally closed. Speech: Patient's speech is fluent and nonpressured, improved articulation. Mood/Affect: Mood is "fine.", affect is congruent and constricted. Attitude was less gruff, more open. Suicidality/Homicidality: Patient denies having any homicidal intent or plan. Endorses having suicidal ideation "always" Perceptions: Patient denies any visual hallucinations and denies any auditory hallucinations Though content/process: There is no evidence of any delusional thought content and thought process is linear and goal-directed. Memory and concentration: AOX3, grossly intact for the purposes of this session Judgment and insight: Poor ASSESSMENT: Major Guthrie is a 48-year-old man with a history of major depressive disorder and severe alcohol use disorder who is presently admitted on a court order. There has been prior discussion regarding his medication regimen and the potential benefit for a mood stabilizer. However Mr. Lui has been reluctant to revisit the Depakote or lithium that he had previously been treated with. He was amenable to a trial of lamotrigine and was started on that medication 03/25/2024 and has been counseled about potential risk including Torres. Today he describes his mood as fine which is an improvement and has been spending a little more time outside his room. Has concerns about sleep and inquired about making adjustments to his regimen to help with this. Will trial melatonin to help with sleep onset. Major depressive disorder, without psychotic features Alcohol use disorder, severe Unspecified anxiety disorder Nicotine dependence Plan: - Patient is admitted under involuntary status to [facility] for stabilization of psychiatric symptoms and safety. Patient put on a full court order. Patient has been adherent with medications. - Medications : - Start melatonin 5 mg prior to bedtime for sleep onset - Continue Lamotrigine 25 mg daily through 04/07/24 (14 days at this dose), then can continue titration. - Cymbalta 60 mg bid for mood/anxiety - Seroquel 300 mg nightly for insomnia/mood adjunct - Continue Wellbutrin XL 300 mg daily as mood adjunct - Zyprexa IM if patient refuses meds, as patient is on a court order - Zofran every 8 hours as needed for nausea - Carafate and Protonix for acid reflux - Ativan and Haldol PRN for agitation/aggression - Multivitamin and thiamine for alcohol use disorder - NRT - nicotine patch available -SW on board for discharge planning. Encourage patient to participate in groups to work on coping skills. Patient placed on full court order 02/18. Team is currently working on possible state psych hospitalization for further treatment as recommended by hospital risk management vs crisis bed with ACT team, due to patients severe condition and treatment resistant depression. Patient was previously served a PPO filed by his sister, for threats (per review of prior notes by Dr. Nash)
[2024-03-26] MEDS: MELATONIN 3 MG TABLET PO SCH (20:14)
--- NOTE | 2024-03-27 11:44 | P.PN ---
Progress Note - Text Progress Note Date: 03/27/24 Interval History: Patient was seen while lying in bed in his room but was agreeable to a convers ation. He described his mood as "fine" today. He continues to be blunted, and concrete. He states that he slept well last night, and that he is eating well. He makes no complaints of side effects from the medication. When asked about suicidal ideation he stated yes, I've already told you my plan. denies any AH or VH. He denies having homicidal ideation today. .Patient denies any side effects from the medications and has been compliant with meds. Mental Status Exam: General Appearance: Patient appears to be stated age is alert, directable, and reasonably cooperative. Behavior: Patient is calmly lying down without any agitated behavior. Eyes are generally closed. Speech: Patient's speech is fluent and nonpressured, Mood/Affect: Mood is "fine.", affect is congruent and constricted. Suicidality/Homicidality: Patient denies having any homicidal intent or plan. Endorses having suicidal ideation "always" Perceptions: Patient denies any visual hallucinations and denies any auditory hallucinations Though content/process: There is no evidence of any delusional thought content and thought process poor Memory and concentration: AOX3, grossly intact for the purposes of this session Judgment and insight: Poor ASSESSMENT: Major depressive disorder, without psychotic features Alcohol use disorder, severe Unspecified anxiety disorder Nicotine dependence Plan: - Patient is admitted under involuntary status to [facility] for stabilization of psychiatric symptoms and safety. Patient put on a full court order. Patient has been adherent with medications. - Medications : - melatonin 5 mg prior to bedtime for sleep onset - Continue Lamotrigine 25 mg daily for mood stabilization - Cymbalta 60 mg bid for mood/anxiety - Seroquel 300 mg nightly for insomnia/mood adjunct - Continue Wellbutrin XL 300 mg daily as mood adjunct - Zyprexa IM if patient refuses meds, as patient is on a court order - Zofran every 8 hours as needed for nausea - Carafate and Protonix for acid reflux - Ativan and Haldol PRN for agitation/aggression - Multivitamin and thiamine for alcohol use disorder - NRT - nicotine patch available -SW on board for discharge planning. Encourage patient to participate in groups to work on coping skills. Patient placed on full court order 02/18. Team is currently working on possible state psych hospitalization for further treatment as recommended by hospital risk management vs crisis bed with ACT team, due to patients severe condition and treatment resistant depression. Patient was previously served a PPO filed by his sister, for threats
--- NOTE | 2024-03-28 11:18 | P.PN ---
Subjective Patient Name: Major Lui Date of : 75 Patient Status: Inpatient Attending Provider: Trey Nash Date: 03/28/24 Initialization Date: 03/27/24 08:46 Subjective data: An attempt was made to see the patient Patient initially stated that he was doing fine and then suddenly stated that he does not want to talk anymore and that he needs to sleep Patient then turned around and went back to sleep patient did not seem to be mumbling and cussing Mental Status Exam: General Appearance: Patient appears to be stated age is alert, uncooperative. Behavior: Patient is calmly lying down without any agitated behavior. Eyes are generally closed. Speech: Patient's speech is fluent and nonpressured, Mood/Affect: Unable to assess due to uncooperativeness Suicidality/Homicidality: Patient denies having any problems .did not address specifically homicidal intent or plan. Perceptions: Patient denies any visual hallucinations and denies any auditory hallucinations Though content/process: There is no evidence of any delusional thought content and thought process poor Memory and concentration: AOX3, grossly intact for the purposes of this session Judgment and insight: Poor ASSESSMENT: Major depressive disorder, without psychotic features Alcohol use disorder, severe Unspecified anxiety disorder Nicotine dependence Plan: Agree with the current treatment plan - Patient is admitted under involuntary status to [facility] for stabilization of psychiatric symptoms and safety. Patient has been on full court order. Patient has been adherent with medications. - Medications : - melatonin 5 mg prior to bedtime for sleep onset - Continue Lamotrigine 25 mg daily for mood stabilization - Cymbalta 60 mg bid for mood/anxiety - Seroquel 300 mg nightly for insomnia/mood adjunct - Continue Wellbutrin XL 300 mg daily as mood adjunct - Zyprexa IM if patient refuses meds, as patient is on a court order - Zofran every 8 hours as needed for nausea - Carafate and Protonix for acid reflux - Ativan and Haldol PRN for agitation/aggression - Multivitamin and thiamine for alcohol use disorder - NRT - nicotine patch available -SW on board for discharge planning. Encourage patient to participate in groups to work on coping skills. Patient placed on full court order 02/18. Team is currently working on possible state psych hospitalization for further treatment as recommended by hospital risk management vs crisis bed with ACT team, due to patients severe condition and treatment resistant depression. Patient was previously served a PPO filed by his sister, for threats Jj Veloz MD Objective - Vital Signs Vital signs: Vital Signs Temp 97.7 F 03/28/24 06:00 Pulse 85 03/28/24 06:00 Resp 20 03/28/24 06:00 BP 112/69 03/28/24 06:00 Pulse Ox 95 03/28/24 06:00 FiO2 - Labs CBC & Chem 7: 02/27/24 12:12 02/27/24 12:12
--- NOTE | 2024-03-29 09:20 | P.PN ---
Subjective Progress Note Date: 03/29/24 Principal diagnosis: IMPRESSIONS: major depressive disorder, without psychotic features anxiety disorder, unspecified alcohol use disorder, severe nicotine dependance homelessness Rule out personality disorder Patient Name: Major Lui Date of : 75 Patient Status: Inpatient Attending Provider: Trey Nash Date: 03/29/24 Initialization Date: 03/27/24 08:46 Subjective data: An attempt was made to see the patient Patient was laying in bed and again refused to respond to any questions asked Mental Status Exam: From the previous day General Appearance: Patient appears to be stated age is alert, uncooperative. Behavior: Patient is calmly lying down without any agitated behavior. Eyes are generally closed. Speech: Patient's speech is fluent and nonpressured, Mood/Affect: Unable to assess due to uncooperativeness Suicidality/Homicidality: Patient denies having any problems .did not address specifically homicidal intent or plan. Perceptions: Patient denies any visual hallucinations and denies any auditory hallucinations Though content/process: There is no evidence of any delusional thought content and thought process poor Memory and concentration: AOX3, grossly intact for the purposes of this session Judgment and insight: Poor ASSESSMENT: Major depressive disorder, without psychotic features Alcohol use disorder, severe Unspecified anxiety disorder Nicotine dependence Plan: Agree with the current treatment plan - Patient is admitted under involuntary status to [facility] for stabilization of psychiatric symptoms and safety. Patient has been on full court order. Patient has been adherent with medications. - Medications : - melatonin 5 mg prior to bedtime for sleep onset - Continue Lamotrigine 25 mg daily for mood stabilization - Cymbalta 60 mg bid for mood/anxiety - Seroquel 300 mg nightly for insomnia/mood adjunct - Continue Wellbutrin XL 300 mg daily as mood adjunct - Zyprexa IM if patient refuses meds, as patient is on a court order - Zofran every 8 hours as needed for nausea - Carafate and Protonix for acid reflux - Ativan and Haldol PRN for agitation/aggression - Multivitamin and thiamine for alcohol use disorder - NRT - nicotine patch available -SW on board for discharge planning. Encourage patient to participate in groups to work on coping skills. Patient placed on full court order 02/18. Team is currently working on possible state psych hospitalization for further treatment as recommended by hospital risk management vs crisis bed with ACT team , due to patients severe condition and treatment resistant depression. Patient was previously served a PPO filed by his sister, for threats Jj Veloz MD Objective - Vital Signs Vital signs: Vital Signs Temp 97.8 F 03/29/24 06:50 Pulse 71 03/29/24 06:50 Resp 16 03/29/24 06:50 BP 102/67 03/29/24 06:50 Pulse Ox 96 03/29/24 06:50 FiO2 - Labs CBC & Chem 7: 02/27/24 12:12 02/27/24 12:12
--- NOTE | 2024-03-30 12:01 | P.PN ---
Progress Note - Text Progress Note Date: 03/30/24 Interval History: Patient was seen while lying in bed in his room but was semi agreeable to a co nversation. He described his mood as "fine" today. Patient continues to be irritable. He states that he slept on and off last night, and that he is eating well. He states that his mood is fine, and he claims to always have anxiety. He makes no complaints. When asked about suicidal ideation he stated yes, "always". denies any AH or VH. He denies having homicidal ideation today. .Patient denies any side effects from the medications and has been compliant with meds. Mental Status Exam: General Appearance: Patient appears to be stated age is alert, directable, and reasonably cooperative. Behavior: Patient is calmly lying down without any agitated behavior. Eyes are generally closed. mildly irritable Speech: Patient's speech is fluent and nonpressured, Mood/Affect: Mood is "fine.", affect is congruent and constricted. Suicidality/Homicidality: Patient denies having any homicidal intent or plan. Endorses having suicidal ideation "always" Perceptions: Patient denies any visual hallucinations and denies any auditory hallucinations Though content/process: There is no evidence of any delusional thought content and thought process poor Memory and concentration: AOX3, grossly intact for the purposes of this session Judgment and insight: chronically Poor ASSESSMENT: Major depressive disorder, without psychotic features Alcohol use disorder, severe Unspecified anxiety disorder Nicotine dependence Plan: - Patient is admitted under involuntary status to [facility] for stabilization of psychiatric symptoms and safety. Patient put on a full court order. Patient has been adherent with medications. - Medications : - melatonin 5 mg prior to bedtime for sleep onset - Continue Lamotrigine 25 mg daily for mood stabilization - Cymbalta 60 mg bid for mood/anxiety - Seroquel 300 mg nightly for insomnia/mood adjunct - Continue Wellbutrin XL 300 mg daily as mood adjunct - Zyprexa IM if patient refuses meds, as patient is on a court order - Zofran every 8 hours as needed for nausea - Carafate and Protonix for acid reflux - Ativan and Haldol PRN for agitation/aggression - Multivitamin and thiamine for alcohol use disorder - NRT - nicotine patch available -SW on board for discharge planning. Encourage patient to participate in groups to work on coping skills. Patient placed on full court order 02/18. Team is currently working on possible state psych hospitalization for further treatment as recommended by hospital risk management vs crisis bed with ACT team, due to patients severe condition and treatment resistant depression. Patient was previously served a PPO filed by his sister, for threats
--- NOTE | 2024-03-31 11:28 | P.PN ---
Progress Note - Text Progress Note Date: 03/31/24 Interval History: Patient was seen while lying in bed in his room but was semi agreeable to a co nversation. He continues to state his mood as "fine". Patient continues to be irritable. He states that he slept ok last night, and that he is eating well. He makes no complaints. Continues to seclude to his room, and only comes out for meals and medication. He keeps the interview brief, and only gives yes or no responses. he was asking questions vaguely about a medication that he was started on a few days ago however did not mention whether it is helping or not. When asked about suicidal ideation he stated yes, denies any AH or VH. He denies having homicidal ideation. Patient denies any side effects from the medications and has been compliant with meds. Mental Status Exam: General Appearance: Patient appears to be stated age is alert, directable, and some what cooperative. Behavior: Patient is calmly lying down without any agitated behavior. Eyes are generally closed. mildly irritable Speech: Patient's speech is fluent and nonpressured, Mood/Affect: Mood is "fine.", affect is congruent and constricted. Suicidality/Homicidality: Patient denies having any homicidal intent or plan. Endorses having suicidal ideation "always" Perceptions: Patient denies any visual hallucinations and denies any auditory hallucinations Though content/process: There is no evidence of any delusional thought content and thought process poor Memory and concentration: AOX3, grossly intact for the purposes of this session Judgment and insight: chronically Poor ASSESSMENT: Major depressive disorder, without psychotic features Alcohol use disorder, severe Unspecified anxiety disorder Nicotine dependence Plan: - Patient is admitted under involuntary status to [facility] for stabilization of psychiatric symptoms and safety. Patient put on a full court order. Patient has been adherent with medications. - Medications : - melatonin 5 mg prior to bedtime for sleep onset - increase Lamotrigine 50 mg daily for mood stabilization - Cymbalta 60 mg bid for mood/anxiety - Seroquel 300 mg nightly for insomnia/mood adjunct - increase Wellbutrin XL 450 mg daily as mood adjunct - Zyprexa IM if patient refuses meds, as patient is on a court order - Zofran every 8 hours as needed for nausea - Carafate and Protonix for acid reflux - Ativan and Haldol PRN for agitation/aggression - Multivitamin and thiamine for alcohol use disorder - NRT - nicotine patch available -SW on board for discharge planning. Encourage patient to participate in groups to work on coping skills. Patient placed on full court order 02/18. Patient has been approved through [facility] for state hospitalikzation, due to chronic suicidal ideation, and homicidal ideation, high risk for violence and harm. He is placed on a waitlist to be admitted.
[2024-04-01] MEDS: buPROPion XL 150 MG TAB.ER.24H PO SCH (08:24)
[2024-04-01] MEDS: lamoTRIgine 25 MG TAB PO SCH (08:24)
--- NOTE | 2024-04-01 10:28 | P.PN ---
Progress Note - Text Progress Note Date: 04/01/24 Interval History: Patient was seen while lying in bed in his room but was semi agreeable to a co nversation. He continues to state that he is depressed. Patient continues to be irritable in conversation. He states that he slept ok last night, and that he is eating well. He makes no complaints. Continues to seclude to his room, and only comes out for meals and medication. He continues to endorse suicidal ideation, no specific plan today, denies any AH or VH. He denies having homicidal ideation. Patient denies any side effects from the medications and has been compliant with meds. Mental Status Exam: General Appearance: Patient appears to be stated age is alert, directable, and irritable Behavior: Patient is calmly lying down without any agitated behavior. Eyes are generally closed. irritable Speech: Patient's speech is fluent and nonpressured, Mood/Affect: Mood is "depressed", affect is congruent and constricted. Suicidality/Homicidality: Patient denies having any homicidal intent or plan. Endorses having suicidal ideation Perceptions: Patient denies any visual hallucinations and denies any auditory hallucinations Though content/process: There is no evidence of any delusional thought content and thought process poor Memory and concentration: AOX3, grossly intact for the purposes of this session Judgment and insight: chronically Poor ASSESSMENT: Major depressive disorder, without psychotic features Alcohol use disorder, severe Unspecified anxiety disorder Nicotine dependence Plan: - Patient is admitted under involuntary status to [facility] for stabilization of psychiatric symptoms and safety. Patient put on a full court order. Patient has been adherent with medications. - Medications : - melatonin 5 mg prior to bedtime for sleep onset -Increase lamotrigine 50 mg BID for mood stabilization - Cymbalta 60 mg bid for mood/anxiety - Seroquel 300 mg nightly for insomnia/mood adjunct -Continue Wellbutrin XL 450 mg daily as mood adjunct - Zyprexa IM if patient refuses meds, as patient is on a court order - Zofran every 8 hours as needed for nausea - Carafate and Protonix for acid reflux - Ativan and Haldol PRN for agitation/aggression - Multivitamin and thiamine for alcohol use disorder - NRT - nicotine patch available -SW on board for discharge planning. Encourage patient to participate in groups to work on coping skills. Patient placed on full court order 02/18. Patient has been approved through [facility] for state hospitalikzation, due to chronic suicidal ideation, and homicidal ideation, high risk for violence and harm. He is placed on a waitlist to be admitted.
--- NOTE | 2024-04-02 10:11 | P.PN ---
Progress Note - Text Progress Note Date: 04/02/24 Interval History: Patient was seen while lying in bed in his room and was agreeable to a short c onversation. Patients room is malodorous. Splitter Hand asked patient when he last showered, patient stated he did not know, and does not care. He continues to state he wishes he were . He has no plan while hospitalized. He states that he is tired today. He states that he slept ok last night, and that he is eating well. He makes no complaints. Continues to seclude to his room, and only comes out for meals and medication. He remains irritable. He continues to endorse suicidal ideation, no specific plan today, denies any AH or VH. He denies having homicidal ideation. Patient denies any side effects from the medications and has been compliant with meds. Mental Status Exam: General Appearance: Patient appears to be stated age is alert, directable, and irritable Behavior: Patient is calmly lying down without any agitated behavior. Eyes are generally closed. irritable Speech: Patient's speech is fluent and nonpressured, Mood/Affect: Mood is "depressed", affect is congruent and constricted. Suicidality/Homicidality: Patient denies having any homicidal intent or plan. Endorses having suicidal ideation Perceptions: Patient denies any visual hallucinations and denies any auditory hallucinations Though content/process: There is no evidence of any delusional thought content and thought process poor Memory and concentration: AOX3, grossly intact for the purposes of this session Judgment and insight: chronically Poor ASSESSMENT: Major depressive disorder, without psychotic features Alcohol use disorder, severe Unspecified anxiety disorder Nicotine dependence Plan: - Patient is admitted under involuntary status to [facility] for stabilization of psychiatric symptoms and safety. Patient put on a full court order. Patient has been adherent with medications. - Medications : - melatonin 5 mg prior to bedtime for sleep onset -lamotrigine 50 mg BID for mood stabilization - Cymbalta 60 mg bid for mood/anxiety - Seroquel 300 mg nightly for insomnia/mood adjunct -Wellbutrin XL 450 mg daily as mood adjunct - Zyprexa IM if patient refuses meds, as patient is on a court order - Zofran every 8 hours as needed for nausea - Carafate and Protonix for acid reflux - Ativan and Haldol PRN for agitation/aggression - Multivitamin and thiamine for alcohol use disorder - NRT - nicotine patch available -SW on board for discharge planning. Encourage patient to participate in groups to work on coping skills. Patient placed on full court order 02/18. Patient has been approved through [facility] for state hospitalization, due to chronic suicidal ideation, and homicidal ideation, high risk for violence and harm. He is placed on a wait list to be admitted.
--- NOTE | 2024-04-03 11:23 | P.PN ---
Progress Note - Text Progress Note Date: 04/03/24 Interval History: Patient was seen while lying in bed in his room and was agreeable to a short c onversation. patient showered yesterday. She continues to be fairly irritable, continues to endorse depression. He continues to state that the medications have not been helping him at all. He was complaining about not being able to get a nap from the nurse earlier for anxiety. He continues to state he wishes he were . He has no plan while hospitalized. states that he did not sleep well last night, and that he is eating well. Continues to seclude to his room, and only comes out for meals and medication. He remains irritable. He continues to endorse suicidal ideation, no specific plan today, denies any AH or VH. He denies having homicidal ideation. Patient denies any side effects from the medications and has been compliant with meds. Mental Status Exam: General Appearance: Patient appears to be stated age is alert, directable, and irritable Behavior: Patient is calmly lying down without any agitated behavior. Eyes are generally closed. irritable Speech: Patient's speech is fluent and nonpressured, Mood/Affect: Mood is "depressed and anxious", affect is congruent and constricted. Suicidality/Homicidality: Patient denies having any homicidal intent or plan. Endorses having suicidal ideation, no plan Perceptions: Patient denies any visual hallucinations and denies any auditory hallucinations Though content/process: There is no evidence of any delusional thought content and thought process poor, concrete Memory and concentration: AOX3, grossly intact for the purposes of this session Judgment and insight: chronically Poor ASSESSMENT: Major depressive disorder, without psychotic features Alcohol use disorder, severe Unspecified anxiety disorder Nicotine dependence Plan: - Patient is admitted under involuntary status to [facility] for stabilization of psychiatric symptoms and safety. Patient put on a full court order. Patient has been adherent with medications. - Medications : -melatonin 5 mg prior to bedtime for sleep onset -lamotrigine 50 mg BID for mood stabilization -cross titration of Cymbalta with Pamelor. Will titrate off Cymbalta through the weekend, start Pamelor 10 mg daily for mood/anxiety and plan to increase starting saturday if patient is toelrating it well. - increase Seroquel 400 mg nightly for insomnia/mood adjunct -d/c Wellbutrin - Zyprexa IM if patient refuses meds, as patient is on a court order - Zofran every 8 hours as needed for nausea - Carafate and Protonix for acid reflux - Ativan and Haldol PRN for agitation/aggression - Multivitamin and thiamine for alcohol use disorder - NRT - nicotine patch available -SW on board for discharge planning. Encourage patient to participate in groups to work on coping skills. Patient placed on full court order 02/18. Patient has been approved through [facility] for state hospitalization, due to chronic suicidal ideation, and homicidal ideation, high risk for violence and harm. He is placed on a wait list to be admitted.
[2024-04-03] MEDS: DULoxetine HCL 60 MG CAPSULE.DR PO ONE (20:07)
[2024-04-03] MEDS: QUEtiapine 400 MG TAB PO SCH (20:07)
[2024-04-04] MEDS: NORTRIPTYLINE 10 MG CAP PO SCH (08:30)
--- NOTE | 2024-04-04 16:25 | P.PN ---
Progress Note - Text Interval History: States that meds are nbot working. No SI, HI, AVH, med side effects Mental Status Exam: General Appearance: Patient appears to be stated age is alert, directable, and irritable Behavior: Patient is calmly lying down without any agitated behavior. Speech: Patient's speech is fluent and nonpressured, Mood/Affect: Mood is "alright", affect is congruent and constricted. Suicidality/Homicidality: none Perceptions: Patient denies any visual hallucinations and denies any auditory hallucinations Though content/process: There is no evidence of any delusional thought content and thought process poor, concrete Memory and concentration: AOX3, grossly intact for the purposes of this session Judgment and insight: chronically Poor ASSESSMENT: Major depressive disorder, without psychotic features Alcohol use disorder, severe Unspecified anxiety disorder Nicotine dependence Plan: continue current plan
[2024-04-04] MEDS: DULoxetine HCL 30 MG CAPSULE.DR PO ONE (20:21)
[2024-04-04] MEDS: LORazepam 1 MG TAB PO PRN (20:22)
--- NOTE | 2024-04-05 15:32 | P.PN ---
Progress Note - Text Interval history: At this time patient denies any suicidal or homicidal ideations intent or plan. Denies any Auditory or visual hallucinations. Patient denies any side effects from the medications and has been compliant with meds. Mental status exam: General Appearance: [Patient appears to be older than stated agedirectable, and cooperative.] Behavior: [No agitated behavior. Patient is calm and directable] Speech: Patient's speech is fluent and nonpressured. Mood/Affect: Mood is improving mildly, affect is congruent and constricted. Suicidality/Homicidality: Patient denies having any suicidal or homicidal ideation intent or plan. Perceptions: Patient denies any auditory or visual hallucinations. Though content/process: [There is no evidence of any delusional thought content and thought process is linear and goal-directed.] Memory and concentration: AOX3, grossly intact for the purposes of this session Judgment and insight: improving mildly Assessment/Plan: Continue with current diagnosis. Patient continues to meet criteria for inpatient psychiatric admission for symptom stabilization and safety.[Patient will be maintained on current psychotropic medication regimen.] Monitor for medication compliance and for any psychotropic medication side effects. Will continue to monitor ongoing response to treatment. Encouraged participation in milieu.
--- NOTE | 2024-04-06 11:03 | P.PN ---
Progress Note - Text Progress Note Date: 04/06/24 Interval History: Patient was seen while lying in bed in his room and was semi agreeable to an i nterview today. Patient stated he was "fine" He stated that his sleep and appetite was "fine" When asked if he wants to hurt himself or other, he stated, "not right now". Patient was very brief in his answers, and remains concrete. Continues to seclude to his room, and only comes out for meals and medication. He remains irritable. Denies any AH or VH. He denies having homicidal ideation or suicidal ideation "right now". Patient denies any side effects from the medications and has been compliant with meds. Mental Status Exam: General Appearance: Patient appears to be stated age is alert, directable, and irritable Behavior: Patient is calmly lying down without any agitated behavior. Eyes are generally closed. irritable Speech: Patient's speech is fluent and nonpressured, Mood/Affect: Mood is "fine", affect is congruent and constricted. Suicidality/Homicidality: Patient denies having any homicidal intent or plan. currently denies having suicidal ideation, no plan Perceptions: Patient denies any visual hallucinations and denies any auditory hallucinations Though content/process: There is no evidence of any delusional thought content and thought process poor, concrete Memory and concentration: AOX3, grossly intact for the purposes of this session Judgment and insight: chronically Poor ASSESSMENT: Major depressive disorder, without psychotic features Alcohol use disorder, severe Unspecified anxiety disorder Nicotine dependence Plan: - Patient is admitted under involuntary status to [facility] for stabilization of psychiatric symptoms and safety. Patient put on a full court order. Patient has been adherent with medications. - Medications : -melatonin 5 mg prior to bedtime for sleep onset -Lamictal 50 mg daily for mood stabilization - increase Pamelor 20 mg daily for mood/anxiety - Seroquel 400 mg nightly for insomnia/mood adjunct - Zyprexa IM if patient refuses meds, as patient is on a court order - Zofran every 8 hours as needed for nausea - Carafate and Protonix for acid reflux - Ativan and Haldol PRN for agitation/aggression - Multivitamin and thiamine for alcohol use disorder - NRT - nicotine patch available -SW on board for discharge planning. Encourage patient to participate in groups to work on coping skills. Patient placed on full court order 02/18. Patient has been approved through [facility] for state hospitalization, due to chronic suicidal ideation, and homicidal ideation, high risk for violence and harm. He is placed on a wait list to be admitted.
--- NOTE | 2024-04-07 10:11 | P.PN ---
Progress Note - Text Progress Note Date: 04/07/24 Interval History: Patient was seen while lying in bed in his room and was agreeable to an interv iew. Patient stated he was "ok" He stated he feels like his mood is improving mildly, however, he still endorses a bad mood and anxiety. Patient remains very brief in his answers, and remains concrete. He secludes himself to his room, and only comes out for meals and medication. He is less irritable today. Claims to have slept well last night. Denies any AH or VH. He denies having homicidal ideation and endorses suicidal ideation . He states he has no plan, but he will figure it out. Patient denies any side effects from the medications and has been compliant with meds. Mental Status Exam: General Appearance: Patient appears to be stated age is alert, directable, and irritable Behavior: Patient is calmly lying down without any agitated behavior. Eyes are generally closed. Speech: Patient's speech is fluent and nonpressured, Mood/Affect: Mood is "ok", affect is congruent and constricted. Suicidality/Homicidality: Patient denies having any homicidal intent or plan. Endorses having suicidal ideation, no plan Perceptions: Patient denies any visual hallucinations and denies any auditory hallucinations Though content/process: There is no evidence of any delusional thought content and thought process poor, concrete Memory and concentration: AOX3, grossly intact for the purposes of this session Judgment and insight: chronically Poor ASSESSMENT: Major depressive disorder, without psychotic features Alcohol use disorder, severe Unspecified anxiety disorder Nicotine dependence Plan: - Patient is admitted under involuntary status to [facility] for stabilization of psychiatric symptoms and safety. Patient put on a full court order. Patient has been adherent with medications. - Medications : -melatonin 5 mg prior to bedtime for sleep onset -Lamictal 50 mg daily for mood stabilization - Pamelor 20 mg daily for mood/anxiety - Seroquel 400 mg nightly for insomnia/mood adjunct - Zyprexa IM if patient refuses meds, as patient is on a court order - Zofran every 8 hours as needed for nausea - Carafate and Protonix for acid reflux - Ativan and Haldol PRN for agitation/aggression - Multivitamin and thiamine for alcohol use disorder - NRT - nicotine patch available -SW on board for discharge planning. Encourage patient to participate in groups to work on coping skills. Patient placed on full court order 02/18. Patient has been approved through [facility] for state hospitalization, due to chronic suicidal ideation, and homicidal ideation, high risk for violence and harm. He is placed on a wait list to be admitted.
[2024-04-07] MEDS: NORTRIPTYLINE 10 MG CAP PO SCH (10:47)
--- NOTE | 2024-04-08 10:16 | P.PN ---
Progress Note - Text Progress Note Date: 04/08/24 Interval History: Patient was seen while lying in bed in his room and was not agreeable to an in terview. Patient stated, "I'm fine, go away!" Patient was very irritable this morning. Laying in bed covered from head to toe with a blanket. Still continues to seclude to his room. Denies any AH or VH. He denies having homicidal ideation and endorses suicidal ideation. Patient denies any side effects from the medications and has been compliant with meds. Mental Status Exam: General Appearance: Patient appears to be stated age is alert, directable, and irritable Behavior: Patient is lying down agitated behavior. Eyes are generally closed. irritable Speech: Patient's speech is fluent and nonpressured, Mood/Affect: Mood is "fine", affect is congruent and constricted. Suicidality/Homicidality: Patient denies having any homicidal intent or plan. Endorses having suicidal ideation, no plan Perceptions: Patient denies any visual hallucinations and denies any auditory hallucinations Though content/process: There is no evidence of any delusional thought content and thought process poor, concrete Memory and concentration: AOX3, grossly intact for the purposes of this session Judgment and insight: chronically Poor ASSESSMENT: Major depressive disorder, without psychotic features Alcohol use disorder, severe Unspecified anxiety disorder Nicotine dependence Plan: - Patient is admitted under involuntary status to [facility] for stabilization of psychiatric symptoms and safety. Patient put on a full court order. Patient has been adherent with medications. - Medications : -melatonin 5 mg prior to bedtime for sleep onset -Lamictal 50 mg daily for mood stabilization - increase Pamelor 30 mg daily for mood/anxiety - Seroquel 400 mg nightly for insomnia/mood adjunct - Zyprexa IM if patient refuses meds, as patient is on a court order - Zofran every 8 hours as needed for nausea - Carafate and Protonix for acid reflux - Ativan and Haldol PRN for agitation/aggression - Multivitamin and thiamine for alcohol use disorder - NRT - nicotine patch available - on board for discharge planning. Encourage patient to participate in groups to work on coping skills. Patient placed on full court order 02/18. Patient has been approved through [facility] for state hospitalization, due to chronic suicidal ideation, and homicidal ideation, high risk for violence and harm. He is placed on a wait list to be admitted.
[2024-04-09] MEDS: NORTRIPTYLINE 10 MG CAP PO SCH (10:06)
--- NOTE | 2024-04-09 11:22 | P.PN ---
Progress Note - Text Progress Note Date: 04/09/24 Interval History: Patient was seen while lying in bed in his room and was agreeable to a brief i nterview. Patient stated, "I'm fine!" Patient continues to be very irritable. Laying in bed , facing away from food writer. Giving very brief answers. He claims to have a fair appetite, and fair sleep. Still continues to seclude to his room. Denies any AH or VH. He denies having homicidal ideation and continues to endorse suicidal ideation. Patient denies any side effects from the medications and has been compliant with meds. Mental Status Exam: General Appearance: Patient appears to be stated age is alert, directable, and irritable Behavior: Patient is lying down agitated behavior. Eyes are generally closed. irritable Speech: Patient's speech is fluent and nonpressured, Mood/Affect: Mood is "fine", affect is congruent and constricted. Suicidality/Homicidality: Patient denies having any homicidal intent or plan. Endorses having suicidal ideation, no plan Perceptions: Patient denies any visual hallucinations and denies any auditory hallucinations Though content/process: There is no evidence of any delusional thought content and thought process poor, concrete Memory and concentration: AOX3, grossly intact for the purposes of this session Judgment and insight: chronically Poor ASSESSMENT: Major depressive disorder, without psychotic features Alcohol use disorder, severe Unspecified anxiety disorder Nicotine dependence Plan: - Patient is admitted under involuntary status to [facility] for stabilization of psychiatric symptoms and safety. Patient put on a full court order. Patient has been adherent with medications. - Medications : -melatonin 5 mg prior to bedtime for sleep onset -Lamictal 50 mg daily for mood stabilization - Pamelor 30 mg daily for mood/anxiety - Seroquel 400 mg nightly for insomnia/mood adjunct - Zyprexa IM if patient refuses meds, as patient is on a court order - Zofran every 8 hours as needed for nausea - Carafate and Protonix for acid reflux - Ativan and Haldol PRN for agitation/aggression - Multivitamin and thiamine for alcohol use disorder - NRT - nicotine patch available - on board for discharge planning. Encourage patient to participate in groups to work on coping skills. Patient placed on full court order 02/18. Patient has been approved through [facility] for state hospitalization, due to chronic suicidal ideation, and homicidal ideation, high risk for violence and harm. He is placed on a wait list to be admitted.
[2024-04-09] MEDS: LORazepam 0.5 MG TAB PO PRN (20:15)
--- NOTE | 2024-04-10 10:23 | P.PN ---
Progress Note - Text Progress Note Date: 04/10/24 Interval History: Patient was seen while lying in bed in his room and was agreeable to a brief i nterview. There are not many changes from previous days. Patient stated, "I'm fine" Patient continues to be very irritable. Laying in bed , facing away from residential mortgage underwriter. Giving very brief answers. Remains concrete. He claims to have a fair appetite, and stated that he did not really get that much sleep last night. Still continues to seclude to his room. Denies any AH or VH. He denies having homicidal ideation and today, he denies suicidal ideation today. Patient denies any side effects from the medications and has been compliant with meds. Mental Status Exam: General Appearance: Patient appears to be stated age is alert, directable, and irritable Behavior: Patient is lying down agitated behavior. Eyes are generally closed. irritable Speech: Patient's speech is fluent and nonpressured, concrete and monotone Mood/Affect: Mood is "fine", affect is congruent and constricted. Suicidality/Homicidality: Patient denies having any homicidal intent or plan. denies suicidal ideation today Perceptions: Patient denies any visual hallucinations and denies any auditory hallucinations Though content/process: There is no evidence of any delusional thought content and thought process poor, concrete Memory and concentration : AOX3, grossly intact for the purposes of this session Judgment and insight : chronically Poor Assessment: Major depressive disorder, without psychotic features Alcohol use disorder, severe Unspecified anxiety disorder Nicotine dependence Plan: - Patient is admitted under involuntary status to [facility] for stabilization of psychiatric symptoms and safety. Patient put on a full court order. Patient has been adherent with medications. - Medications : -melatonin 5 mg prior to bedtime for sleep onset - increase Lamictal 50 mg + 25 mg for mood stabilization - Pamelor 30 mg daily for mood/anxiety - Seroquel 400 mg nightly for insomnia/mood adjunct - Zyprexa IM if patient refuses meds, as patient is on a court order - Zofran every 8 hours as needed for nausea - Carafate and Protonix for acid reflux - Ativan and Haldol PRN for agitation/aggression - Multivitamin and thiamine for alcohol use disorder - NRT - nicotine patch available -SW on board for discharge planning. Encourage patient to participate in groups to work on coping skills. Patient placed on full court order 02/18. Patient has been approved through [facility] for state hospitalization, due to chronic suicidal ideation, and homicidal ideation, high risk for violence and harm. He is placed on a wait list to be admitted.
[2024-04-10] MEDS: IBUPROFEN 600 MG TAB PO PRN (20:11)
[2024-04-10] MEDS: lamoTRIgine 25 MG TAB PO SCH (20:12)
--- NOTE | 2024-04-11 16:11 | P.PN ---
Progress Note - Text Progress Note Date: 04/11/24 Interval history: Patient was seen bedside and was uncooperative to assessment. He said "I don't want to talk to you. Get out." When asked about concerns, patient did not verbalize any, including endorsing any suicidal or homicidal ideations intent or plan, any Auditory or visual hallucinations. Patient has been compliant with meds. Mental status exam: General Appearance: Patient appears to be stated age is malodorous, disheveled, uncooperative Behavior: Irritable, internally agitated Speech: Patient's speech is fluent and nonpressured. Mood/Affect: Mood is irritable, affect is congruent Suicidality/Homicidality: Patient does not report any suicidal or homicidal ideation intent or plan when asked Perceptions: Patient does not report any auditory or visual hallucinations when asked Though content/process: Unable to assess Memory and concentration: Unable to assess Judgment and insight: Poor Assessment/Plan: Continue with current diagnosis. Patient continues to meet criteria for inpatient psychiatric admission for symptom stabilization and safety. Patient will be maintained on current psychotropic medication regimen. Monitor for medication compliance and for any psychotropic medication side effects. Will continue to monitor ongoing response to treatment. Encouraged participation in milieu.
--- NOTE | 2024-04-12 14:40 | P.PN ---
Progress Note - Text Progress Note Date: 04/12/24 Interval history: Patient was seen bedside and was uncooperative to assessment. He said "Why do you keep coming? Go away! I don't want to talk to you!" When asked about concerns, patient did not endorse any suicidal or homicidal ideations intent or plan, any Auditory or visual hallucinations. Patient has been compliant with meds. Mental status exam: General Appearance: Patient appears to be stated age is malodorous, disheveled, uncooperative Behavior: Irritable, internally agitated Speech: Patient's speech is fluent and nonpressured. Mood/Affect: Mood is irritable, affect is congruent Suicidality/Homicidality: Patient does not report any suicidal or homicidal id eation intent or plan when asked Perceptions: Patient does not report any auditory or visual hallucinations when asked Though content/process: Unable to assess Memory and concentration: Unable to assess Judgment and insight: Poor Assessment/Plan: Continue with current diagnosis. Patient continues to meet criteria for inpatient psychiatric admission for symptom stabilization and safety. Patient will be maintained on current psychotropic medication regimen. Monitor for medication compliance and for any psychotropic medication side effects. Will continue to monitor ongoing response to treatment. Encouraged participation in milieu.
--- NOTE | 2024-04-13 11:01 | P.PN ---
Progress Note - Text Progress Note Date: 04/13/24 Interval History: Patient was seen while lying in bed in his room and was agreeable to a brief i nterview. Patient stated, "I'm fine". Patient is less irritable today. Laying in bed , facing away from development writer. Patient remains concrete. He claims to have a fair appetite, and stated that he did not sleep well last night. Still continues to seclude to his room. Denies any AH or VH. He denies having homicidal ideation and today, he denies suicidal ideation today. Patient denies any side effects from the medications and has been compliant with meds. Mental Status Exam: General Appearance: Patient appears to be stated age is alert, poor hygiene and grooming. Disheveled appearance. Behavior: Patient is lying down, no agitated behavior. Eyes are generally closed. less irritable Speech: Patient's speech is fluent and nonpressured, concrete and monotone Mood/Affect: Mood is "fine", affect is congruent and constricted. Suicidality/Homicidality: Patient denies having any homicidal intent or plan. denies suicidal ideation today Perceptions: Patient denies any visual hallucinations and denies any auditory hallucinations Though content/process: There is no evidence of any delusional thought content and thought process poor, concrete Memory and concentration : AOX3, grossly intact for the purposes of this session Judgment and insight : chronically Poor Assessment: Major depressive disorder, without psychotic features Alcohol use disorder, severe Unspecified anxiety disorder Nicotine dependence Plan: - Patient is admitted under involuntary status to [facility] for stabilization of psychiatric symptoms and safety. Patient put on a full court order. Patient has been adherent with medications. - Medications : - melatonin 5 mg prior to bedtime for sleep onset - Lamictal 50 mg + 25 mg for mood stabilization - Pamelor 30 mg daily for mood/anxiety - Seroquel 400 mg nightly for insomnia/mood adjunct - Zyprexa IM if patient refuses meds, as patient is on a court order - Zofran every 8 hours as needed for nausea - Carafate and Protonix for acid reflux - Ativan and Haldol PRN for agitation/aggression - Multivitamin and thiamine for alcohol use disorder - NRT - nicotine patch available -SW on board for discharge planning. Encourage patient to participate in groups to work on coping skills. Patient placed on full court order 02/18. Patient has been approved through [facility] for state hospitalization, due to chronic suicidal ideation, and homicidal ideation, high risk for violence and harm. He is placed on a wait list to be admitted.
--- NOTE | 2024-04-14 11:09 | P.PN ---
Progress Note - Text Progress Note Date: 04/14/24 Interval History: Patient was seen while lying in bed in his room and was agreeable to a brief i nterview. Patient stated, "not good" when asked about his mood today. He continues to state that he is feeling depressed today. He did claim that he is feeling suicidal, denies any homicidal ideations today. Patient is fairly irritable today. Laying in bed hygiene and grooming continue to be poor, facing away from card writer hand. Patient remains concrete. He claims to have a fair appetite, and stated that he did not sleep well last night. Still continues to seclude to his room. Denies any AH or VH. He denies having homicidal ideation and today, he denies suicidal ideation today. Patient denies any side effects from the medications and has been compliant with meds. Mental Status Exam: General Appearance: Patient appears to be stated age is alert, poor hygiene and grooming. Disheveled appearance. Behavior: Patient is lying down, no agitated behavior. Eyes are generally closed. irritable Speech: Patient's speech is fluent and nonpressured, concrete and monotone Mood/Affect: Mood is "fine", affect is congruent and constricted. Suicidality/Homicidality: Patient denies having any homicidal intent or plan. admitts to suicidal ideation today, no specific plan Perceptions: Patient denies any visual hallucinations and denies any auditory hallucinations Though content/process: There is no evidence of any delusional thought content and thought process poor, concrete Memory and concentration : AOX3, grossly intact for the purposes of this session Judgment and insight : chronically Poor Assessment: Major depressive disorder, without psychotic features Alcohol use disorder, severe Unspecified anxiety disorder Nicotine dependence Plan: - Patient is admitted under involuntary status to [facility] for stabilization of psychiatric symptoms and safety. Patient put on a full court order. Patient has been adherent with medications. - Medications : - increase melatonin 10 mg prior to bedtime for sleep onset - increase Lamictal 50 mg BID for mood stabilization - Pamelor 30 mg daily for mood/anxiety - Seroquel 400 mg nightly for insomnia/mood adjunct - Zyprexa IM if patient refuses meds, as patient is on a court order - Zofran every 8 hours as needed for nausea - Carafate and Protonix for acid reflux - Ativan and Haldol PRN for agitation/aggression - Multivitamin and thiamine for alcohol use disorder - NRT - nicotine patch available -SW on board for discharge planning. Encourage patient to participate in groups to work on coping skills. Patient placed on full court order 02/18. Patient has been approved through [facility] for state hospitalization, due to chronic suicidal ideation, and homicidal ideation, high risk for violence and harm. He is placed on a wait list to be admitted.
[2024-04-14] MEDS: lamoTRIgine 25 MG TAB PO SCH (20:14)
[2024-04-14] MEDS: MELATONIN 5 MG TABLET PO SCH (20:15)
--- NOTE | 2024-04-15 14:12 | P.PN ---
Progress Note - Text Progress Note Date: 04/15/24 Interval History: Patient was seen in his room via telehealth in cross-coverage for Dr. Nash. Conner mg was observed to be disheveled, isolating to his room, awake, alert and laying in bed with covers on. He appears irritable and refuses to engage in assessment "I don't want to talk to you!". He does not appear to be attending to internal stimuli. Interview was terminated to avoid escalating patient. Chart reviewed and per nursing note, patient has been guarded, isolating to his room, is up for meals, sleep has been fragmented (likely because he stays in bed most of the day), is disheveled, malodorous, refuses showers. He continues to endorse suicidal ideations to nurses, states he still wants to . He denied homicidal ideation to nurse today. Patient has been compliant with meds and no known reported side effects. Mental Status Exam: General Appearance: Patient appears to be stated age, disheveled, malodorous (per nurse report), dressed in casual attire, not showered. Behavior: Patient is lying down in bed, awake and alert, but dismissive and irritable. Speech: Patient's speech is fluent and non-pressured, monotone and loud Mood/Affect: Mood is irritable, affect is congruent and constricted. Suicidality/Homicidality: Patient denied having any homicidal intent or plan to nurse (he was not cooperative with my assessment), he continues to endorse suicidal ideation today to his nurse, no specific plan Perceptions: Patient denies any visual hallucinations and denies any auditory hallucinations to his nurse (he was not cooperative with my assessment) Though content/process: There is no evidence of any delusional thought content and thought process poor, concrete Memory and concentration: AOX3, grossly intact for the purposes of this session Judgment and insight: chronically Poor Assessment: Major depressive disorder, without psychotic features Alcohol use disorder, severe Unspecified anxiety disorder Nicotine dependence Plan: - Patient is admitted under involuntary status to MHU for stabilization of psychiatric symptoms and safety. Patient put on a full court order. Patient has been adherent with medications. - Medications : - Continue melatonin 10 mg prior to bedtime for sleep onset - Continue Lamictal 50 mg BID for mood stabilization - Continue Pamelor 30 mg daily for mood/anxiety - Continue Seroquel 400 mg nightly for insomnia/mood adjunct - Continue Zyprexa IM if patient refuses meds, as patient is on a court order - Continue Zofran every 8 hours as needed for nausea - Continue Carafate and Protonix for acid reflux - Ativan and Haldol PRN for agitation/aggression - Multivitamin and thiamine for alcohol use disorder - NRT - nicotine patch available -SW on board for discharge planning. Encourage patient to participate in groups to work on coping skills. - Per Dr. Nash, patient placed on full court order 02/18. Patient has been byron roved through [facility] for state hospitalization, due to chronic suicidal ideation, and homicidal ideation, high risk for violence and harm. He has been placed on a wait list for admission to state psychiatric facility.
--- NOTE | 2024-04-16 12:10 | P.PN ---
Progress Note - Text Progress Note Date: 04/16/24 Interval History: Patient was seen in his room and was agreeable to a brief interview. Patient s tated he was fine. He remains irritable and concrete. He states his anxiety has remained at about a 6/7. He lays in bed all day, only coming out for meals and medication, and states that his sleeping medication "works like shit". He continues to not shower, or take care of any ADL'S. He continues to appear disheveled. Today he is denying suicidal ideations. He denied homicidal ideation today. Patient has been compliant with meds and no known reported side effects. Mental Status Exam: General Appearance: Patient appears to be stated age, disheveled, malodorous, dressed in casual attire, not showered. Behavior: Patient is lying down in bed, awake, dismissive and irritable. Speech: Patient's speech is fluent and non-pressured, monotone and loud Mood/Affect: Mood is irritable, affect is congruent and constricted. Suicidality/Homicidality: Patient denied having any homicidal intent or plan, he denies suicidal ideation today Perceptions: Patient denies any visual hallucinations and denies any auditory hallucinations to his nurse (he was not cooperative with my assessment) Though content/process: There is no evidence of any delusional thought content and thought process poor, concrete Memory and concentration: AOX3, grossly intact for the purposes of this session Judgment and insight: chronically Poor Assessment: Major depressive disorder, without psychotic features Alcohol use disorder, severe Unspecified anxiety disorder Nicotine dependence Plan: - Patient is admitted under involuntary status to MHU for stabilization of psychiatric symptoms and safety. Patient put on a full court order. Patient has been adherent with medications. - Medications : - Continue melatonin 10 mg prior to bedtime for sleep onset - Continue Lamictal 50 mg BID for mood stabilization - increase Pamelor 40 mg daily for mood/anxiety - Continue Seroquel 400 mg nightly for insomnia/mood adjunct - Continue Zyprexa IM if patient refuses meds, as patient is on a court order - Continue Zofran every 8 hours as needed for nausea - Continue Carafate and Protonix for acid reflux - Order EKG - Ativan and Haldol PRN for agitation/aggression - Multivitamin and thiamine for alcohol use disorder - NRT - nicotine patch available -SW on board for discharge planning. Encourage patient to participate in groups to work on coping skills. - Per Dr. Nash, patient placed on full court order 02/18. Patient has been approved through [facility] for state hospitalization, due to chronic suicidal ideation, and homicidal ideation, high risk for violence and harm. He has been placed on a wait list for admission to state psychiatric facility.
[2024-04-17] MEDS: NORTRIPTYLINE 10 MG CAP PO SCH (07:49)
--- NOTE | 2024-04-17 11:46 | P.PN ---
Progress Note - Text Progress Note Date: 04/17/24 Interval History: Patient was seen in his room and was agreeable to an interview. Patient stated he was fine. He did take a shower today. He is more talkative today. He makes complaints of his right arm hurting up by his shoulder, and stated it gets worse during the course of the day. Embroidery Worker told patient we will get an xray ordered. Yesterday, the patient refused the EKG production underwriter ordered, production underwriter spoke with patient today about that, and patient was agreeable to have it done today. Patient state d he did not sleep last night, and takes naps through out the day. Embroidery Worker spoke to patient about labs needing to be drawn, patient agreeable. Patient endorses a good appetite. Today, he is endorsing suicidal ideations. He stated he does not have a plan, but he will figure it out when he gets out of here. He denied homicidal ideation today. Patient has been compliant with meds and no known reported side effects. Mental Status Exam: General Appearance: Patient appears to be stated age, disheveled, malodorous, dressed in casual attire. Behavior: Patient is lying down in bed, awake, animated Speech: Patient's speech is fluent and non-pressured. Mood/Affect: Mood is fine, affect is congruent and constricted. Suicidality/Homicidality: Patient denied having any homicidal intent or plan, he is endorsing suicidal ideation today Perceptions: Patient denies any visual hallucinations and denies any auditory hallucinations Though content/process: There is no evidence of any delusional thought content and thought process poor, concrete Memory and concentration: AOX3, grossly intact for the purposes of this session Judgment and insight: chronically Poor Assessment: Major depressive disorder, without psychotic features Alcohol use disorder, severe Unspecified anxiety disorder Nicotine dependence Plan: - Patient is admitted under involuntary status to MHU for stabilization of psychiatric symptoms and safety. Patient put on a full court order. Patient has been adherent with medications. - Medications : - Continue melatonin 10 mg prior to bedtime for sleep onset - Continue Lamictal 50 mg BID for mood stabilization - Continue Pamelor 40 mg daily for mood/anxiety - Continue Seroquel 400 mg nightly for insomnia/mood adjunct - Continue Zyprexa IM if patient refuses meds, as patient is on a court order - Continue Zofran every 8 hours as needed for nausea - Continue Carafate and Protonix for acid reflux - Order EKG - Order CBC with diff, CMP - Order XRay of Right shoulder and humerus due to complaints of pain and probable trauma - Ativan and Haldol PRN for agitation/aggression - Multivitamin and thiamine - NRT - nicotine patch available -SW on board for discharge planning. Encourage patient to participate in groups to work on coping skills. -Patient placed on full court order 02/18. Patient has been approved through [facility] for state hospitalization, due to chronic suicidal ideation, and homicidal ideation, high risk for violence and harm. He has been placed on a wait list for admission to state psychiatric facility. will be completing another 2 certificates and petition today to continue patients current mental health order.
[2024-04-17 12:41] LABS: ALT 36 U/L (4-49); AST 27 U/L (17-59); African American GFR (CKD) >90 (>60 ml/min/1.73 sqM); Albumin 4.3 g/dL (3.5-5.0); Alkaline Phosphatase 53 U/L (38-126); Anion Gap 8 mmol/L; Blood Urea Nitrogen 14 mg/dL (9-20); Calcium 9.9 mg/dL (8.4-10.2); Carbon Dioxide 27 mmol/L (22-30); Chloride 104 mmol/L (98-107); Glucose 115 mg/dL (74-99); Non-African American GFR(CKD) 85 (>60 ml/min/1.73 sqM); Potassium 4.2 mmol/L (3.5-5.1); Sodium 139 mmol/L (137-145); Total Bilirubin 0.4 mg/dL (0.2-1.3)
[2024-04-17 12:42] LABS: Basophils % (A) 1 %; Eosinophils # (A) 0.4 k/uL (0-0.7); Eosinophils % (A) 5 %; HCT 39.1 % (39.0-53.0); Lymphocytes # (A) 2.5 k/uL (1.0-4.8); Lymphocytes % (A) 34 %; MCH 31.6 pg (25.0-35.0); MCHC 33.6 g/dL (31.0-37.0); Mean Platelet Volume 6.9; Monocytes # (A) 0.7 k/uL (0-1.0); Monocytes % (A) 9 %; Neutrophils # (A) 3.7 k/uL (1.3-7.7); Neutrophils % (A) 50 %; Platelet Count 421 k/uL (150-450); RBC 4.16 m/uL (4.30-5.90); RDW 12.6 % (11.5-15.5); WBC 7.4 k/uL (3.8-10.6)
[2024-04-17 12:51] LABS: HGB 13.1 gm/dL (13.0-17.5)
--- NOTE | 2024-04-17 21:02 | XR ---
EXAMINATION TYPE: XR shoulder complete 3 views RT, XR humerus 2 views RT DATE OF EXAM: 04/17/2024 Comparison: None Clinical History: 48-year-old male pain, hx of probable trauma Findings: Shoulder: AC joint appears congruent and intact. Subacromial space is preserved. No acute fracture, s ubluxation, dislocation. Visualized right hemithorax is clear. Humerus: No acute fracture is seen. Elbow articulation grossly intact. Impression: Shoulder and humerus without acute osseous abnormality seen.
--- NOTE | 2024-04-18 08:26 | P.PN ---
Subjective Progress Note Date: 04/18/24 Principal diagnosis: Major depression recurrent without psychotic features Patient was seen in the office Patient stated he was fine. He makes complaints of his right arm hurting up by his shoulder, and stated it gets worse during the course of the day.he says that he has a resistance to medication and only morphine would work and they will give him that. he says that he never sees very well they tends to be resistant to medications and that the 400milligrams of Seroquel does not seem to help him sleep Mental Status Exam:decreased eye contact General Appearance: Patient appears to be stated age, disheveled, malodorous, dressed in casual attire.he does look tired and is rubbing his face Behavior: cooperative Speech: Patient's speech is fluent and non-pressured. Mood/Affect: Mood is fine, affect is congruent and constricted. Suicidality/Homicidality: Patient denied having any homicidal intent or plan, he is endorsing suicidal ideation today Perceptions: Patient denies any visual hallucinations and denies any auditory hallucinations Though content/process: There is no evidence of any delusional thought content and thought process poor, concrete Memory and concentration: AOX3, grossly intact for the purposes of this session Judgment and insight: chronically Poor Assessment: Major depressive disorder, without psychotic features Alcohol use disorder, severe Unspecified anxiety disorder Nicotine dependence Plan:Gerda I'll increase his Seroquel to 600 tonight still doesn't sleep and might take it to 800 - Patient is admitted under involuntary status to MHU for stabilization of psychiatric symptoms and safety. Patient put on a full court order. Patient has been adherent with medications. - Medications : - Continue melatonin 10 mg prior to bedtime for sleep onset - Continue Lamictal 50 mg BID for mood stabilization - Continue Pamelor 40 mg daily for mood/anxiety - Continue Seroquel 400 mg nightly for insomnia/mood adjunct - Continue Zyprexa IM if patient refuses meds, as patient is on a court order - Continue Zofran every 8 hours as needed for nausea - Continue Carafate and Protonix for acid reflux - Order EKG - Order CBC with diff, CMP - Order XRay of Right shoulder and humerus due to complaints of pain and probable trauma - Ativan and Haldol PRN for agitation/aggression - Multivitamin and thiamine - NRT - nicotine patch available -SW on board for discharge planning. Encourage patient to participate in groups to work on coping skills. -Patient placed on full court order 02/18. Patient has been approved through [facility] for state hospitalization, due to chronic suicidal ideation, and homicidal ideation, high risk for violence and harm. He has been placed on a wait list for admission to [facility]. will be completing another 2 certificates and petition today to continue patients current mental health order. Objective - Vital Signs Vital signs: Vital Signs Temp 97.3 F L 04/18/24 06:03 Pulse 89 04/18/24 06:03 Resp 19 04/18/24 06:03 BP 97/64 04/18/24 06:03 Pulse Ox 96 04/18/24 06:03 FiO2 - Labs CBC & Chem 7: 04/17/24 11:56 04/17/24 11:56 Labs: Abnormal Lab Results - Last 24 Hours (Table) 04/17/24 04/17/24 Range/Units 11:56 11:56 RBC 4.16 L (4.30-5.90) m/uL Glucose 115 H (74-99) mg/dL
[2024-04-18] MEDS: QUEtiapine 200 MG TAB PO SCH (20:12)
--- NOTE | 2024-04-19 08:12 | P.PN ---
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 He makes complaints of his right arm hurting up by his shoulder, and stated it gets worse during the course of the day.he says that he has a resistance to medication and only morphine would work and they will give him that. he says that he never sleeps very well and he tends to be resistant to medications and that the 400milligrams of Seroquel does not seem to help him sleep . We increased his Seroquel last night and his sleep went from 3-4 hours he said maybeif he could get 1 more hour that would be enough. He says he has had jobs in the past where he worked 12 hours a day and slept 5 hours and that was enough. His appetite is good he is little hesitant to talk to me because he is on his way to breakfast. He says he did not take any naps yesterday just watch TV. He says he has no plan to do well after discharge. Has a girlfriend gets along with the girlfriend's mother but not the stepdad. Says is pretty much it on peopleto rely on. Mental Status Exam:decreased eye contact General Appearance: Patient appears to be stated age, disheveled, malodorous, dressed in casual attire.he does look tired Behavior: cooperativebut totally not motivated to grab hold of his life Speech: Patient's speech is fluent and non-pressured. Mood/Affect: Mood is fine, affect is congruent and constricted. Suicidality/Homicidality: Patient denied having any homicidal intent or plan, he is endorsing suicidal ideation today Perceptions: Patient denies any visual hallucinations and denies any auditory hallucinations Though content/process: There is no evidence of any delusional thought content and thought process poor, concrete Memory and concentration: AOX3, grossly intact for the purposes of this session Judgment and insight: chronically Poor Assessment: Major depressive disorder, without psychotic features Alcohol use disorder, severe Unspecified anxiety disorder Nicotine dependence Plan:Ithink I'll increase his Seroquel to 600 tonight still doesn't sleep and might take it to 800 - Patient is admitted under involuntary status to MHU for stabilization of psychiatric symptoms and safety. Patient put on a full court order. Patient has been adherent with medications. - Medications : - Continue melatonin 10 mg prior to bedtime for sleep onset - Continue Lamictal 50 mg BID for mood stabilization - Continue Pamelor 40 mg daily for mood/anxiety - Continue Seroquel but take it up to 800 mg and 600 help some but not quite enough - Continue Zyprexa IM if patient refuses meds, as patient is on a court order - Continue Zofran every 8 hours as needed for nausea - Continue Carafate and Protonix for acid reflux - Order EKG - Order CBC with diff, CMP - Order XRay of Right shoulder and humerus due to complaints of pain and probable trauma - Ativan and Haldol PRN for agitation/aggression - Multivitamin and thiamine - NRT - nicotine patch available - on board for discharge planning. Encourage patient to participate in groups to work on coping skills. -Patient placed on full court order 02/18. Patient has been approved through [facility] for state hospitalization, due to chronic suicidal ideation, and homicidal ideation, high risk for violence and harm. He has been placed on a wait list for admission to state psychiatric facility. will be completing another 2 certificates and petition today to continue patients current mental health order. Objective - Vital Signs Vital signs: Vital Signs Temp 97.3 F L 04/18/24 06:03 Pulse 89 04/18/24 06:03 Resp 19 04/18/24 06:03 BP 97/64 04/18/24 06:03 Pulse Ox 96 04/18/24 06:03 FiO2 - Labs CBC & Chem 7: 04/17/24 11:56 04/17/24 11:56
[2024-04-19] MEDS: QUEtiapine 400 MG TAB PO SCH (20:06)
[2024-04-20] MEDS ORDERED: NORTRIPTYLINE 10 MG CAP ONE (08:00)
[2024-04-20] MEDS ORDERED: NICOTINE 21MG/24HR PATCH TRANSDERM ONE (08:11)
[2024-04-20] MEDS ORDERED: THIAMINE 100 MG TAB ONE (08:12)
[2024-04-20] MEDS ORDERED: lamoTRIgine 25 MG TAB ONE ×2 (08:12→19:58)
[2024-04-20] MEDS ORDERED: PANTOPRAZOLE 40 MG TABLET PO ONE (08:12)
[2024-04-20] MEDS ORDERED: SUCRALFATE 1 GM TAB ONE (08:12)
[2024-04-20] MEDS ORDERED: FOLIC ACID 1 MG TAB ONE (08:12)
[2024-04-20] MEDS ORDERED: MULTIVITAMINS, THERA 1 EACH TAB ONE (08:12)
[2024-04-20] MEDS ORDERED: LORazepam 0.5 MG TAB ONE ×2 (08:45→19:58)
[2024-04-20] MEDS ORDERED: MELATONIN 5 MG TABLET ONE (19:58)
[2024-04-20] MEDS ORDERED: QUEtiapine 400 MG TAB ONE (19:58)
[2024-04-21] MEDS ORDERED: NICOTINE 21MG/24HR PATCH TRANSDERM ONE (09:11)
[2024-04-21] MEDS ORDERED: lamoTRIgine 25 MG TAB ONE ×2 (09:12→20:21)
[2024-04-21] MEDS ORDERED: FOLIC ACID 1 MG TAB ONE (09:12)
[2024-04-21] MEDS ORDERED: PANTOPRAZOLE 40 MG TABLET PO ONE (09:12)
[2024-04-21] MEDS ORDERED: MULTIVITAMINS, THERA 1 EACH TAB ONE (09:12)
[2024-04-21] MEDS ORDERED: SUCRALFATE 1 GM TAB ONE (09:12)
[2024-04-21] MEDS ORDERED: THIAMINE 100 MG TAB ONE (09:12)
[2024-04-21] MEDS ORDERED: MELATONIN 5 MG TABLET ONE (20:21)
[2024-04-21] MEDS ORDERED: QUEtiapine 400 MG TAB ONE (20:22)
[2024-04-21] MEDS ORDERED: LORazepam 0.5 MG TAB ONE (20:22)
[2024-04-21] MEDS ORDERED: NORTRIPTYLINE 10 MG CAP ONE (20:30)
[2024-04-22] MEDS ORDERED: THIAMINE 100 MG TAB ONE (08:06)
[2024-04-22] MEDS ORDERED: MULTIVITAMINS, THERA 1 EACH TAB ONE (08:06)
[2024-04-22] MEDS ORDERED: PANTOPRAZOLE 40 MG TABLET PO ONE (08:06)
[2024-04-22] MEDS ORDERED: NICOTINE 21MG/24HR PATCH TRANSDERM ONE (08:06)
[2024-04-22] MEDS ORDERED: lamoTRIgine 25 MG TAB ONE ×2 (08:07→20:21)
[2024-04-22] MEDS ORDERED: FOLIC ACID 1 MG TAB ONE (08:07)
[2024-04-22] MEDS ORDERED: SUCRALFATE 1 GM TAB ONE (08:07)
[2024-04-22] MEDS ORDERED: LORazepam 0.5 MG TAB ONE ×2 (09:07→20:21)
[2024-04-22] MEDS ORDERED: QUEtiapine 400 MG TAB ONE (20:21)
[2024-04-22] MEDS ORDERED: MELATONIN 5 MG TABLET ONE (20:21)
[2024-04-23] MEDS ORDERED: NORTRIPTYLINE 10 MG CAP ONE (08:00)
[2024-04-23] MEDS ORDERED: LIDOCAINE 4% PATCH TOPICAL ONE (08:00)
[2024-04-23] MEDS ORDERED: NICOTINE 21MG/24HR PATCH TRANSDERM ONE (08:12)
[2024-04-23] MEDS ORDERED: PANTOPRAZOLE 40 MG TABLET PO ONE (08:13)
[2024-04-23] MEDS ORDERED: MULTIVITAMINS, THERA 1 EACH TAB ONE (08:13)
[2024-04-23] MEDS ORDERED: FOLIC ACID 1 MG TAB ONE (08:13)
[2024-04-23] MEDS ORDERED: THIAMINE 100 MG TAB ONE (08:13)
[2024-04-23] MEDS ORDERED: lamoTRIgine 25 MG TAB ONE ×2 (08:13→20:19)
[2024-04-23] MEDS ORDERED: SUCRALFATE 1 GM TAB ONE (08:14)
[2024-04-23] MEDS ORDERED: LORazepam 0.5 MG TAB ONE ×2 (08:24→20:28)
[2024-04-23] MEDS ORDERED: MELATONIN 5 MG TABLET ONE (20:19)
[2024-04-23] MEDS ORDERED: QUEtiapine 400 MG TAB ONE (20:20)
[2024-04-24] MEDS ORDERED: PANTOPRAZOLE 40 MG TABLET PO ONE (08:03)
[2024-04-24] MEDS ORDERED: THIAMINE 100 MG TAB ONE (08:03)
[2024-04-24] MEDS ORDERED: MULTIVITAMINS, THERA 1 EACH TAB ONE (08:03)
[2024-04-24] MEDS ORDERED: NICOTINE 21MG/24HR PATCH TRANSDERM ONE (08:03)
[2024-04-24] MEDS ORDERED: lamoTRIgine 25 MG TAB ONE ×2 (08:04→19:57)
[2024-04-24] MEDS ORDERED: SUCRALFATE 1 GM TAB ONE (08:04)
[2024-04-24] MEDS ORDERED: FOLIC ACID 1 MG TAB ONE (08:04)
[2024-04-24] MEDS ORDERED: LORazepam 0.5 MG TAB ONE ×2 (08:31→20:27)
[2024-04-24] MEDS ORDERED: MELATONIN 5 MG TABLET ONE (19:57)
[2024-04-24] MEDS ORDERED: QUEtiapine 400 MG TAB ONE (19:57)
[2024-04-25] MEDS ORDERED: THIAMINE 100 MG TAB ONE (07:51)
[2024-04-25] MEDS ORDERED: FOLIC ACID 1 MG TAB ONE (07:51)
[2024-04-25] MEDS ORDERED: MULTIVITAMINS, THERA 1 EACH TAB ONE (07:51)
[2024-04-25] MEDS ORDERED: NICOTINE 21MG/24HR PATCH TRANSDERM ONE (07:51)
[2024-04-25] MEDS ORDERED: PANTOPRAZOLE 40 MG TABLET PO ONE (07:51)
[2024-04-25] MEDS ORDERED: SUCRALFATE 1 GM TAB ONE (07:51)
[2024-04-25] MEDS ORDERED: lamoTRIgine 25 MG TAB ONE ×2 (07:51→20:45)
[2024-04-25] MEDS ORDERED: LIDOCAINE 4% PATCH TOPICAL ONE (08:00)
[2024-04-25] MEDS ORDERED: NORTRIPTYLINE 10 MG CAP ONE (08:00)
[2024-04-25] MEDS ORDERED: LORazepam 0.5 MG TAB ONE ×2 (08:17→21:02)
[2024-04-25] MEDS ORDERED: QUEtiapine 400 MG TAB ONE (20:45)
[2024-04-25] MEDS ORDERED: MELATONIN 5 MG TABLET ONE (20:45)
[2024-04-26] MEDS ORDERED: LIDOCAINE 4% PATCH TOPICAL ONE (08:00)
[2024-04-26] MEDS ORDERED: NORTRIPTYLINE 10 MG CAP ONE (08:00)
[2024-04-26] MEDS ORDERED: NICOTINE 21MG/24HR PATCH TRANSDERM ONE (08:02)
[2024-04-26] MEDS ORDERED: SUCRALFATE 1 GM TAB ONE (08:02)
[2024-04-26] MEDS ORDERED: PANTOPRAZOLE 40 MG TABLET PO ONE (08:02)
[2024-04-26] MEDS ORDERED: FOLIC ACID 1 MG TAB ONE (08:02)
[2024-04-26] MEDS ORDERED: lamoTRIgine 25 MG TAB ONE ×2 (08:02→21:00)
[2024-04-26] MEDS ORDERED: THIAMINE 100 MG TAB ONE (08:02)
[2024-04-26] MEDS ORDERED: MULTIVITAMINS, THERA 1 EACH TAB ONE (08:02)
[2024-04-26] MEDS ORDERED: LORazepam 0.5 MG TAB ONE ×2 (09:04→21:01)
[2024-04-26] MEDS ORDERED: MELATONIN 5 MG TABLET ONE (21:00)
[2024-04-26] MEDS ORDERED: QUEtiapine 400 MG TAB ONE (21:01)
[2024-04-27] MEDS ORDERED: NORTRIPTYLINE 10 MG CAP ONE (08:00)
[2024-04-27] MEDS ORDERED: LIDOCAINE 4% PATCH TOPICAL ONE (08:00)
[2024-04-27] MEDS ORDERED: NICOTINE 21MG/24HR PATCH TRANSDERM ONE (08:34)
[2024-04-27] MEDS ORDERED: PANTOPRAZOLE 40 MG TABLET PO ONE (08:35)
[2024-04-27] MEDS ORDERED: SUCRALFATE 1 GM TAB ONE (08:35)
[2024-04-27] MEDS ORDERED: lamoTRIgine 25 MG TAB ONE ×2 (08:35→21:12)
[2024-04-27] MEDS ORDERED: THIAMINE 100 MG TAB ONE (08:35)
[2024-04-27] MEDS ORDERED: MULTIVITAMINS, THERA 1 EACH TAB ONE (08:35)
[2024-04-27] MEDS ORDERED: FOLIC ACID 1 MG TAB ONE (08:35)
[2024-04-27] MEDS ORDERED: MELATONIN 5 MG TABLET ONE (21:12)
[2024-04-27] MEDS ORDERED: QUEtiapine 400 MG TAB ONE (21:13)
[2024-04-27] MEDS ORDERED: LORazepam 0.5 MG TAB ONE (21:13)
[2024-04-28] MEDS ORDERED: NORTRIPTYLINE 10 MG CAP ONE (08:00)
[2024-04-28] MEDS ORDERED: LIDOCAINE 4% PATCH TOPICAL ONE (08:00)
[2024-04-28] MEDS ORDERED: lamoTRIgine 25 MG TAB ONE ×2 (08:11→20:39)
[2024-04-28] MEDS ORDERED: MELATONIN 5 MG TABLET ONE (20:39)
[2024-04-28] MEDS ORDERED: LORazepam 0.5 MG TAB ONE (20:39)
[2024-04-28] MEDS ORDERED: QUEtiapine 400 MG TAB ONE (20:40)
[2024-04-29] MEDS ORDERED: NORTRIPTYLINE 10 MG CAP ONE (08:00)
[2024-04-29] MEDS ORDERED: NICOTINE 21MG/24HR PATCH TRANSDERM ONE (08:32)
[2024-04-29] MEDS ORDERED: lamoTRIgine 25 MG TAB ONE ×2 (08:32→19:51)
[2024-04-29] MEDS ORDERED: FOLIC ACID 1 MG TAB ONE (08:32)
[2024-04-29] MEDS ORDERED: MELATONIN 5 MG TABLET ONE (19:52)
[2024-04-29] MEDS ORDERED: QUEtiapine 400 MG TAB ONE (19:52)
[2024-04-29] MEDS ORDERED: LORazepam 0.5 MG TAB ONE (20:22)
[2024-04-30] MEDS ORDERED: LIDOCAINE 4% PATCH TOPICAL ONE (08:00)
[2024-04-30] MEDS ORDERED: NORTRIPTYLINE 10 MG CAP ONE (08:00)
[2024-04-30] MEDS ORDERED: lamoTRIgine 25 MG TAB ONE ×2 (08:07→19:55)
[2024-04-30] MEDS ORDERED: LORazepam 0.5 MG TAB ONE ×2 (08:24→19:56)
[2024-04-30] MEDS ORDERED: MELATONIN 5 MG TABLET ONE (19:56)
[2024-04-30] MEDS ORDERED: QUEtiapine 200 MG TAB ONE ×2 (19:56)
[2024-05-01] MEDS ORDERED: NORTRIPTYLINE 10 MG CAP ONE (08:00)
[2024-05-01] MEDS ORDERED: lamoTRIgine 25 MG TAB ONE ×2 (08:18→20:04)
[2024-05-01] MEDS ORDERED: PANTOPRAZOLE 40 MG TABLET PO ONE (08:18)
[2024-05-01] MEDS ORDERED: LORazepam 0.5 MG TAB ONE ×2 (08:22→20:04)
[2024-05-01] MEDS ORDERED: MELATONIN 5 MG TABLET ONE (20:04)
[2024-05-02] MEDS ORDERED: lamoTRIgine 25 MG TAB ONE ×2 (07:57→20:00)
[2024-05-02] MEDS ORDERED: NORTRIPTYLINE 10 MG CAP ONE (08:00)
[2024-05-02] MEDS ORDERED: LIDOCAINE 4% PATCH TOPICAL ONE (08:00)
[2024-05-02] MEDS ORDERED: LORazepam 0.5 MG TAB ONE ×2 (08:17→20:14)
[2024-05-02] MEDS ORDERED: MELATONIN 5 MG TABLET ONE (20:00)
[2024-05-02] MEDS ORDERED: QUEtiapine 400 MG TAB ONE (20:00)
[2024-05-03] MEDS ORDERED: lamoTRIgine 25 MG TAB ONE ×2 (07:52→19:55)
[2024-05-03] MEDS ORDERED: NORTRIPTYLINE 10 MG CAP ONE (08:00)
[2024-05-03] MEDS ORDERED: LIDOCAINE 4% PATCH TOPICAL ONE (08:00)
[2024-05-03] MEDS ORDERED: LORazepam 0.5 MG TAB ONE ×2 (08:36→20:25)
[2024-05-03] MEDS ORDERED: QUEtiapine 400 MG TAB ONE (19:56)
[2024-05-03] MEDS ORDERED: MELATONIN 5 MG TABLET ONE (19:56)
[2024-05-04] MEDS ORDERED: NORTRIPTYLINE 10 MG CAP ONE (08:00)
[2024-05-04] MEDS ORDERED: lamoTRIgine 25 MG TAB ONE ×2 (08:10→20:13)
[2024-05-04] MEDS ORDERED: MELATONIN 5 MG TABLET ONE (20:13)
[2024-05-04] MEDS ORDERED: PALIPERIDONE 3 MG TAB.ER.24 PO ONE ×2 (20:14)
[2024-05-04] MEDS ORDERED: LORazepam 0.5 MG TAB ONE (20:28)
[2024-05-05] MEDS ORDERED: NORTRIPTYLINE 10 MG CAP ONE ×2 (08:00→09:00)
[2024-05-05] MEDS ORDERED: lamoTRIgine 25 MG TAB ONE (08:25)
[2024-05-05] MEDS ORDERED: MELATONIN 5 MG TABLET ONE (20:35)
[2024-05-05] MEDS ORDERED: lamoTRIgine 100 MG TAB ONE ×2 (20:35)
[2024-05-05] MEDS ORDERED: PALIPERIDONE 6 MG TAB.ER.24 PO ONE ×2 (20:36)
[2024-05-05] MEDS ORDERED: LORazepam 0.5 MG TAB ONE (20:53)
[2024-05-06] MEDS ORDERED: NORTRIPTYLINE 10 MG CAP ONE (08:00)
[2024-05-06] MEDS ORDERED: lamoTRIgine 25 MG TAB ONE (08:14)
[2024-05-06] MEDS ORDERED: PALIPERIDONE 6 MG TAB.ER.24 PO ONE ×2 (20:34)
[2024-05-06] MEDS ORDERED: lamoTRIgine 100 MG TAB ONE ×2 (20:34)
[2024-05-06] MEDS ORDERED: MELATONIN 5 MG TABLET ONE (20:35)
[2024-05-06] MEDS ORDERED: LORazepam 0.5 MG TAB ONE (20:35)
[2024-05-07] MEDS ORDERED: LIDOCAINE 4% PATCH TOPICAL ONE (08:00)
[2024-05-07] MEDS ORDERED: NORTRIPTYLINE 10 MG CAP ONE (08:00)
[2024-05-07] MEDS ORDERED: lamoTRIgine 25 MG TAB ONE (08:27)
[2024-05-07] MEDS ORDERED: LORazepam 0.5 MG TAB ONE ×2 (08:47→20:07)
[2024-05-07] MEDS ORDERED: MELATONIN 5 MG TABLET ONE (20:07)
[2024-05-07] MEDS ORDERED: PALIPERIDONE 6 MG TAB.ER.24 PO ONE ×2 (20:07)
[2024-05-07] MEDS ORDERED: lamoTRIgine 100 MG TAB ONE ×2 (20:07)
[2024-05-08] MEDS ORDERED: lamoTRIgine 25 MG TAB ONE (08:32)
[2024-05-08] MEDS ORDERED: LORazepam 0.5 MG TAB ONE ×2 (09:16→21:56)
[2024-05-08] MEDS ORDERED: lamoTRIgine 100 MG TAB ONE (21:56)
[2024-05-08] MEDS ORDERED: MELATONIN 5 MG TABLET ONE (21:56)
[2024-05-09] MEDS ORDERED: lamoTRIgine 25 MG TAB ONE (08:08)
[2024-05-09] MEDS ORDERED: PANTOPRAZOLE 40 MG TABLET PO ONE (08:08)
[2024-05-09] MEDS ORDERED: LORazepam 0.5 MG TAB ONE ×2 (08:50→20:39)
[2024-05-09] MEDS ORDERED: lamoTRIgine 100 MG TAB ONE (20:28)
[2024-05-09] MEDS ORDERED: MELATONIN 5 MG TABLET ONE (20:28)
[2024-05-09] MEDS ORDERED: PALIPERIDONE 3 MG TAB.ER.24 PO ONE (20:28)
[2024-05-09] MEDS ORDERED: PALIPERIDONE 6 MG TAB.ER.24 PO ONE (20:28)
--- NOTE | 2024-05-10 11:30 | P.PN ---
Progress Note - Text Progress Note Date: 05/10/24 The patient again refused to engage with this commercial insurance underwriter in any mental status evaluation Patient stated that he does not want to talk about it and wanted to be left alone Following exam except from the assessment done previously which is added here for completeness: Mental Status Exam:decreased eye contact General Appearance: Patient appears to be stated age, disheveled, malodorous, dressed in casual attire. Speech: Patient's speech is fluent and non-pressured. Mood/Affect: Irritable affect is congruent and constricted. Suicidality/Homicidality: Patient had denied having any homicidal intent or plan, Perceptions: Patient had denies any visual hallucinations and denies any auditory hallucinations Though content/process: Paranoid and projective Memory and concentration: Unable to assess Judgment and insight: chronically Poor Assessment: Psychotic disorder unspecified Alcohol use disorder, severe Unspecified anxiety disorder Nicotine dependence Plan: Continue his current medications as prescribed - Ativan and Haldol PRN for agitation/aggression - Multivitamin and thiamine - NRT - nicotine patch available - on board for discharge planning. Encourage patient to participate in groups to work on coping skills. -Patient placed on full court order 02/18. Patient has been approved through [facility] for state hospitalization, due to chronic suicidal ideation, and homicidal ideation, high risk for violence and harm. He has been placed on a wait list for admission to state psychiatric facility. Active Medications Generic Name Dose Route Start Last Admin Trade Name Freq PRN Reason Stop Dose Admin Acetaminophen 650 mg 02/13/24 07:26 02/27/24 20:26 Acetaminophen Tab 325 Mg Tab PO 650 mg Q4HR PRN Administration Mild Pain (Scale 1 to 3) Al Hydroxide/Mg Hydroxide 30 ml 02/13/24 07:26 02/26/24 21:31 Mag Hydrox/Al Hydrox/Simeth 355 Ml Bottle PO 30 ml Q4HR PRN Administration GI Upset Haloperidol 5 mg 02/13/24 07:26 Haloperidol 5 Mg Tab PO Q4HR PRN Agitation Haloperidol Lactate 5 mg 02/13/24 07:26 Haloperidol Lactate 5 Mg/Ml 1 Ml Vial IM Q4HR PRN Severe Agitation Ibuprofen 600 mg 02/13/24 07:26 04/14/24 20:13 Ibuprofen 600 Mg Tab PO 600 mg Q6HR PRN Administration Moderate Pain (Scale 4 to 6) Lamotrigine 50 mg 04/01/24 09:00 05/10/24 10:30 Lamotrigine 25 Mg Tab PO 50 mg DAILY SUSU Administration Lamotrigine 100 mg 05/05/24 21:00 Lamotrigine 100 Mg Tab PO HS SUSU Lidocaine 1 patch 05/08/24 09:00 Lidocaine 4% Patch TOPICAL DAILY SUSU Loperamide HCl 2 mg 03/01/24 10:10 03/23/24 20:22 Loperamide 2 Mg Cap PO 2 mg QID PRN Administration Diarrhea Lorazepam 1 mg 02/13/24 07:26 Lorazepam 2 Mg/Ml Inj IM Q6HR PRN Severe Agitation Lorazepam 0.5 mg 04/09/24 11:30 05/10/24 10:30 Lorazepam 0.5 Mg Tab PO 0.5 mg Q8HR PRN Administration Anxiety Magnesium Hydroxide 2,400 mg 02/13/24 07:26 Magnesium Hydroxide 2,400 Mg/30 Ml Cup PO DAILY PRN Constipation Melatonin 10 mg 04/14/24 21:00 04/19/24 20:06 Melatonin 5 Mg Tablet PO 10 mg HS SUSU Administration Nortriptyline HCl 40 mg 04/17/24 09:00 05/10/24 10:30 Nortriptyline 10 Mg Cap PO 40 mg DAILY SUSU Administration Ondansetron HCl 4 mg 02/26/24 22:48 03/23/24 20:22 Ondansetron Odt 4 Mg Tab PO 4 mg Q8HR PRN Administration Nausea Paliperidone 9 mg 05/10/24 21:00 Paliperidone 3 Mg Tab.Er.24 PO HS SUSU Pantoprazole Sodium 40 mg 03/16/24 17:30 05/10/24 10:30 Pantoprazole 40 Mg Tablet PO Not Given AC-BID SUSU
[2024-05-10] MEDS: lamoTRIgine 100 MG TAB PO SCH (15:00)
[2024-05-10] MEDS: LIDOCAINE 4% PATCH TOPICAL SCH (15:00)
[2024-05-10] MEDS: PALIPERIDONE 6 MG TAB.ER.24 PO SCH (15:21)
[2024-05-10] MEDS: PALIPERIDONE 3 MG TAB.ER.24 PO SCH (20:17)
--- NOTE | 2024-05-11 11:56 | P.PN ---
Progress Note - Text Progress Note Date: 05/11/24 Interval History: Patient was seen in the [facility], and was not directable and agreeable to speak with sign writer letterer or painter today. He states he is having a bad day, and does not want to talk. He continues to be malodorous, with poor hygiene and grooming. He is eating all meals, and has been noted to be sleeping at night per nursing staff. Mental Status Exam: General Appearance: Patient appears to be older than stated age, disheveled, malodorous, dressed in casual attire. Behavior: Patient is sitting, without agitated behavior Speech: Patient's speech is fluent and non-pressured. Mood/Affect: Mood is "having a bad day", affect is congruent and constricted. Suicidality/Homicidality: unable to assess Perceptions: unable to assess Though content/process: unable to assess Memory and concentration: AOX3, grossly intact for the purposes of this session Judgment and insight: chronically Poor Assessment: Major depressive disorder, without psychotic features Alcohol use disorder, severe Unspecified anxiety disorder Nicotine dependence Plan: -Patient continues to meet criteria for inpatient psychiatric admission for symptom stabilization and safety. Patient is on a deferral. -Medications: increase Lamictal 100mg po bid for mood stabilization, Ativan 0.5mg Q8 hours PRN, melatonin 10mg po qhs, Pamelor 40mg daily, Invega 9mg po qhs add Invega Sustenna 234mg IM today to help ensure compliance, 05/11, if patient refuses, will file a demand for hearing. -When necessary Ativan and Haldol for agitation/aggression. -NRT - [nicotine patch] -SW on board for discharge planning. Encouraged the patient to participate in milieu. Papers filed for public guardian, hearing is 05/13, and looking into placement in a crisis bed vs intermediate
[2024-05-11] MEDS: PALIPERIDONE IM 234 MG/1.5 ML SYG IM ONE (16:31)
[2024-05-12] MEDS: lamoTRIgine 100 MG TAB PO SCH (09:02)
--- NOTE | 2024-05-12 10:31 | P.PN ---
Progress Note - Text Progress Note Date: 05/12/24 Interval History: [place] [facility] [place] was not directable or agreeable to speak w ith display card writer today. He states he does not want to talk. He continues to be malodorous, with poor hygiene and grooming. He is eating all meals, and has been noted to be sleeping at night per nursing staff. He is interacting with other patients more, and not secluding to his room as much. Mental Status Exam: General Appearance: Patient appears to be older than stated age, disheveled, malodorous, dressed in casual attire. Behavior: Patient is sitting, without agitated behavior Speech: Patient's speech is fluent and non-pressured. Mood/Affect: unable to assess mood, affect is congruent and constricted. Suicidality/Homicidality: unable to assess Perceptions: unable to assess Though content/process: unable to assess Memory and concentration: AOX3, grossly intact for the purposes of this session Judgment and insight: chronically Poor Assessment: Mood disorder unspecified, r/o bipolar vs major depressive disorder vs schizoaffective disorder Alcohol use disorder, severe Unspecified anxiety disorder Nicotine dependence Plan: -Patient continues to meet criteria for inpatient psychiatric admission for symptom stabilization and safety. Patient is on a deferral. -Medications: Lamictal 100mg po bid for mood stabilization, Ativan 0.5mg Q8 hours PRN, melatonin 10mg po qhs, Pamelor 40mg daily, decrease Invega 6 mg po qhs, given Invega Sustenna 234mg IM on 05/11 to help ensure compliance, next dose will be due on 05/18 of 156 mg IM. -When necessary Ativan and Haldol for agitation/aggression. -NRT - [nicotine patch] -SW on board for discharge planning. Encouraged the patient to participate in milieu. Papers filed for public guardian, hearing is 05/13, and looking into placement in a crisis bed vs [facility], hopeful for discharge early next week.
[2024-05-12] MEDS: PALIPERIDONE 6 MG TAB.ER.24 PO ONE (20:30)
--- NOTE | 2024-05-13 11:32 | P.PN ---
Progress Note - Text Progress Note Date: 05/13/24 Interval History: Patient was seen in the [facility] [place], and was semi agreeable to speak with sports writer to day. He states he had court today, so he was not in a good mood. He got appointed a public guardian today. He does state that he is sleeping all right and eating all right, and would not say much more. He denies HI/SI, and denies AH/VH. He is more social on the unit, and not secluding to his room as much. Patient has been compliant with meds, and denies any side effects. Mental Status Exam: General Appearance: Patient appears to be older than stated age, disheveled, malodorous, dressed in casual attire. Behavior: Patient is sitting, without agitated behavior mildly more cooperative today. Speech: Patient's speech is fluent and non-pressured. [place] monotone Mood/Affect: Claims his mood is improving mildly, affect is congruent and constricted. Improving mildly Suicidality/Homicidality: denies HI/SI Perceptions: denies AH/VH Though content/process: Fairly concrete, logical. Memory and concentration: AOX3, grossly intact for the purposes of this session Judgment and insight: chronically Poor, improving mildly Assessment: Mood disorder unspecified, r/o bipolar vs major depressive disorder vs schizoaffective disorder Alcohol use disorder, severe Unspecified anxiety disorder Nicotine dependence Plan: -Patient continues to meet criteria for inpatient psychiatric admission for symptom stabilization and safety. Patient is on a deferral. -Medications: Lamictal 100 mg po bid for mood stabilization, Ativan 0.5mg Q8 hours PRN, melatonin 10mg po qhs, Pamelor 40mg daily, last dose of Invega 3 mg po qhs tonight, given Invega Sustenna 234mg IM on 05/11 to help ensure compliance, next dose will be due on 05/18 of 156 mg IM. -When necessary Ativan and Haldol for agitation/aggression. -NRT - [nicotine patch] -SW on board for discharge planning. Encouraged the patient to participate in milieu. Patient was assigned a public guardian on 05/13, and , [facility], and guardian are looking into placement in a crisis bed vs long term, hopeful for discharge early next week.
[2024-05-13] MEDS: PALIPERIDONE 3 MG TAB.ER.24 PO ONE (20:20)
--- NOTE | 2024-05-14 10:23 | P.PN ---
Progress Note - Text Progress Note Date: 05/14/24 Interval History: Patient was seen in the [facility], and was agreeable to speak with typewriter operator automatic today. He states he is fine today. He was much more pleasant today, even cracking some jokes and smiling. He states he is eating good, and he is endorsing good sleep. His hygiene is improving, and he is no longer secluding to his room. He denies HI/SI, and denies AH/VH. He is more social on the unit, and not secluding to his room as much. Patient has been compliant with meds, and denies any side effects. Mental Status Exam: General Appearance: Patient appears to be older than stated age, improving grooming and hygiene, dressed in casual attire. Behavior: Patient is sitting, without agitated behavior more cooperative today, joking with typewriter operator automatic. Speech: Patient's speech is fluent and non-pressured. Mood/Affect: Claims his mood is improving mildly, affect is congruent and constricted. Improving mildly Suicidality/Homicidality: denies HI/SI Perceptions: denies AH/VH Though content/process: Fairly concrete, logical. mildly improving Memory and concentration: AOX3, grossly intact for the purposes of this session Judgment and insight: chronically Poor, improving mildly Assessment: Mood disorder unspecified, r/o bipolar vs major depressive disorder vs schizoaffective disorder Alcohol use disorder, severe Unspecified anxiety disorder Nicotine dependence Plan: -Patient continues to meet criteria for inpatient psychiatric admission for symptom stabilization and safety. Patient is on a deferral. -Medications: Lamictal 100 mg po bid for mood stabilization, Ativan 0.5mg Q8 hours PRN, melatonin 10mg po qhs, Pamelor 40mg daily, d/c PO Invega, given Invega Sustenna 234mg IM on 05/11 to help ensure compliance, next dose will be due on 05/18 of 156 mg IM. -When necessary Ativan and Haldol for agitation/aggression. -NRT - [nicotine patch] -SW on board for discharge planning. Encouraged the patient to participate in milieu. Patient was assigned a public guardian on 05/13, and , [facility], and guardian are looking into placement in a crisis bed vs care home, hopeful for discharge early next week.
--- NOTE | 2024-05-15 11:50 | P.PN ---
Progress Note - Text Progress Note Date: 05/15/24 Interval History: Patient was seen in the [facility] [place], and refused to speak with telegraphic typewriter repairer today. He said he will never speak to telegraphic typewriter repairer again. Patient has been compliant with meds, and denies any side effects. Mental Status Exam: General Appearance: Patient appears to be older than stated age, improving grooming and hygiene, dressed in casual attire. Behavior: Patient is sitting, without agitated behavior but not cooperative. Speech: Patient's speech is fluent and non-pressured. Mood/Affect: unable to assess Suicidality/Homicidality: unable to assess Perceptions: unable to assess Though content/process: unable to assess Memory and concentration: AOX3, grossly intact for the purposes of this session Judgment and insight: chronically Poor Assessment: Mood disorder unspecified, r/o bipolar vs major depressive disorder vs schizoaffective disorder Alcohol use disorder, severe Unspecified anxiety disorder Nicotine dependence Plan: -Patient continues to meet criteria for inpatient psychiatric admission for symptom stabilization and safety. Patient is on a deferral. -Medications: Lamictal 100 mg po bid for mood stabilization, Ativan 0.5mg Q8 hours PRN, melatonin 10mg po qhs, Pamelor 40mg daily, Invega Sustenna 234mg IM on 05/11 to help ensure compliance, next dose will be due on 05/18 of 156 mg IM. -When necessary Ativan and Haldol for agitation/aggression. -NRT - [nicotine patch] -SW on board for discharge planning. Encouraged the patient to participate in milieu. Patient was assigned a public guardian on 05/13, and , [facility], and guardian are looking into placement [facility] a crisis bed [facility], hopeful for discharge early next week.
--- NOTE | 2024-05-16 18:45 | P.PN ---
Progress Note - Text Progress Note Date: 05/16/24 Interval history: [place] [facility] [place] was not agreeable to speak with card writer hand. [He explained "I am leaving soon" and stated he did not want to talk. I attempted to engage him around football as he shared his plan to watch today's game at 7 PM. I mentioned the 2 teams that would be playing, and he turned to face me but went back to watching the football game and did not share anything further. At this time patient denies any suicidal or homicidal ideations, intent, or plan. Denies any auditory or visual hallucinations. Patient would not answer any further questions. Mental status exam: General Appearance: Patient appears to be stated age is alert, directable, and very minimally cooperative. Behavior: No agitated behavior. Patient is calm and directable Speech: Patient's speech is fluent and nonpressured. Mood/Affect: Mood is euthymic, affect is congruent and constricted. Suicidality/Homicidality: Patient denies having any suicidal or homicidal ideation intent or plan. Perceptions: Patient denies any auditory or visual hallucinations. Though content/process: There is no evidence of any delusional thought content and thought process is linear and goal-directed. Memory and concentration: AOX3, grossly intact for the purposes of this session Judgment and insight: questionable, historically poor Assessment/Plan: Continue with current diagnoses: Alcohol use disorder, severe; mood disorder unspecified; unspecified anxiety disorder; nicotine dependence Patient continues to meet criteria for inpatient psychiatric admission for symptom stabilization and safety. Currently on deferral. Patient will be maintained on current psychotropic medication regimen: Lamictal 100 mg PO BID, Melatonin 10 mg HS, Pamelor 40 mg daily, Invega Sustenna 156 mg IM due on 05/18 (received 256 mg on 05/11). Monitor for medication compliance and for any psychotropic medication side effects. Will continue to monitor ongoing response to treatment. Encouraged participation in milieu.
--- NOTE | 2024-05-17 19:35 | P.PN ---
Progress Note - Text Progress Note Date: 05/17/24 Interval history: Patient was seen resting in bed and immediately shouted "go away" upon approa ch.'s were made to ask questions about his mood and address any concerns and he repeated "go away". He did not voice suicidal ideation nor did he voiced homicidal ideation. However he was unwilling to engage further. He has not had any significant events per nursing staff and has been adherent with medication. Mental status exam: General Appearance: Patient appears to be stated age is alert and not cooperative. Behavior: No psychomotor agitation/retardation. Patient is irritable and not re- directable. Speech: Patient's speech is fluent and nonpressured. Mood/Affect: Mood is irritable. Affect is congruent and constricted. Suicidality/Homicidality: Patient does not voice having any suicidal or homicidal ideation intent or plan. Perceptions: Patient not observed responding to internal stimuli. Though content/process: Thought process is linear and goal-directed. Memory and concentration: AOX3, grossly intact for the purposes of this session Judgment and insight: questionable, historically poor Assessment/Plan: Continue with current diagnoses: Alcohol use disorder, severe; mood disorder unspecified; unspecified anxiety disorder; nicotine dependence Patient continues to meet criteria for inpatient psychiatric admission for symptom stabilization and safety. Currently on deferral. Patient will be maintained on current psychotropic medication regimen: Lamictal 100 mg PO BID, Melatonin 10 mg HS, Pamelor 40 mg daily, Invega Sustenna 156 mg IM due on 05/18 (received 256 mg on 05/11). Monitor for medication compliance and for any psychotropic medication side effects. Will continue to monitor ongoing response to treatment. Encouraged participation in milieu.
--- NOTE | 2024-05-18 10:09 | P.PN ---
Progress Note - Text Progress Note Date: 05/18/24 Interval History: [place] in [place] [facility] [place] and refused to speak with race and sports book writer today again. He said he will never speak to race and sports book writer again. he continues to be found keeping to humself in the [facility] [place]uffling [place] and watching tv. Patient has been compliant with meds, and denies any side effects. scheduled for next [facility] today Mental Status Exam: General Appearance: Patient appears to be older than stated age, improving grooming and hygiene, dressed in casual attire. Behavior: Patient is sitting, without agitated behavior but not cooperative. Speech: Patient's speech is fluent and non-pressured. Mood/Affect: unable to assess Suicidality/Homicidality: unable to assess Perceptions: unable to assess Though content/process: unable to assess Memory and concentration: AOX3, grossly intact for the purposes of this session Judgment and insight: chronically Poor Assessment: Mood disorder unspecified, r/o bipolar vs major depressive disorder vs schizoaffective disorder Alcohol use disorder, severe Unspecified anxiety disorder Nicotine dependence Plan: -Patient continues to meet criteria for inpatient psychiatric admission for symptom stabilization and safety. Patient is on a deferral. -Medications: Lamictal 100 mg po bid for mood stabilization, Ativan 0.5mg Q8 hours PRN, melatonin 10mg po qhs, Pamelor 40mg daily, Invega Sustenna 234mg IM on 05/11 to help ensure compliance, next dose will be due on 05/17 of 156 mg IM. -When necessary Ativan and Haldol for agitation/aggression. -NRT - [nicotine patch] -SW on board for discharge planning. Encouraged the patient to participate in milieu. Patient was assigned a public guardian on 05/13, and [facility], and guardian are looking into placement in a crisis bed, hopeful for discharge tomorrow
[2024-05-18] MEDS: PALIPERIDONE IM 156 MG/ML SYG IM ONE (18:56)
--- NOTE | 2024-05-19 10:12 | P.DS ---
Providers Date of admission: 02/13/24 07:20 Expected date of discharge: 05/19/24 Attending physician: Trey Nash MD Consults: 02/13/24 07:26 Consult Physician Routine Consulting Provider: Nash [place] Consult Reason/Comments: For H & P for Medical Follow Up Do you want consulting provider notified?: Yes Primary care physician: Stated None - Discharge Diagnosis(es) (1) Unspecified mood [affective] disorder Current Visit: Yes Status: Acute Priority: High (2) Alcohol use disorder, severe, dependence Current Visit: Yes Status: Acute Priority: High (3) Anxiety disorder, unspecified Current Visit: Yes Status: Acute Priority: Medium (4) Nicotine dependence Current Visit: Yes Status: Acute Priority: Low (5) Personality disorder Current Visit: Yes Status: Acute Priority: Medium Hospital Course: Admission HPI: Admission note was completed by feature writer "Patient presented to the hospital on 02/12. As per EPS note, "Pt presents involuntarily, petitioned by the police; "Stated I just want to . If I had a gun I'd kill myself. Threatened to harm his sister while on the phone /c the Suicide Hotline." Pt admits to statements in the Petition. Pt admits to audio and visual hallucinations; pt states he "hears voices and sees animals, mostly cats, running around me." Pt states he cannot understand the voices. Stressors are pt's girlfriend of 8 months of an intentional heroin overdose November and pt found her, and pt has been kicked out of his father's house by his older sister after pt's Father ended up in the hospital. Pt states "I don't want to live anymore. I've been at war /c my sister for a very long time. I basically live in my Dad's driveway and I have an extension cord going from my car to my Dad's house. Recently I left to go do some stuff and when I came back my sister stole my extension cord. When my Dad went to the hospital, my sister got POA over my Dad and locked me out of his house." Pt states his sister lives somewhere else, however "I've been waiting for her to show up at my Dad's house so I can take care of her. At this point I'd kill her /c my bare hands. I think my Dad is now at [facility] and my sister has blocked me from seeing him. I've been wanting to kill myself for quite a while; since November 23 when Marci (pt's girlfriend of 8 months) and I've wanted to ever since. If it wasn't for me she'd be alive. She of a heroin overdose and I found her. It was intentional; she told me she wanted to the day before and asked me to get her some heroin and I refused. Her dealer delivered it to her. If I knew where he was I'd kill him too." Upon todays assessment, he stated since his girlfriend of a heroine overdose, he has not wanted to live anymore. He states he has always had anxiety, and has increasing depression, since he had found his girlfriend. He states that he misses her very much. He stated that he wishes his sister was , and "she's a bitch", and that he would kill her if he had the chance. Patient denies any suicidal or homicidal ideations intent or plan. At this time, patient is denying auditory and visual hallucinations. Patient denies any flight of ideas racing thoughts and increased in goal directed behavior. Patient admits to using alcohol, and smoking 3 packs of cigarettes a day." Hospital course: Upon admission to the unit patient was admitted involuntarily on a petition and certificate and a second certificate was completed and faxed with the courts. Patient ended up receiving a court order for mental health treatment initially however patients are possibly 60 days timeframe of the order and was repositioned and certified once again, he ended up deferring the second time with his district attorney and agreeable to treatment. He was initially fairly isolative, poor hygiene and grooming, agitated and irritable however with time and treatment he eventually got along well with other patients on the unit and followed unit protocol. Patient was compliant with the medications and denied any side effects throughout hospital course. Patient was started on several antidepressants however failed them, he was then started on nortriptyline and increased to dose of 50 mg daily for mood/anxiety. Patient was also on Invega p.o. up to a dose of 9 mg daily, patient was given injection of Invega Sustenna 234 mg IM on 8/26, second dose of Invega 156 mg IM was due on 05/18, maintenance dose will be due on 06/15. Patient was also placed on Lamictal increased to dose of 100 mg p.o. twice daily for mood stabilization and melatonin 10 mg nightly for sleep patient spoke of his stressors and engaged in therapy both group and individual. Patient was also seen by medical team for history and physical exam. Throughout the course of the hospitalization patient gradually improved with regards to mood, anxiety, agitation/irritability and suicidal and homicidal t houghts, sleep and returned back to their baseline level of functioning. Patient did make comments and homicidal threats towards his sister early on during hospitalization, social worker palliative care reached out to patient's sister several times to warn her of these threats, sister went to the court and proceeded to obtain a PPO against him. Patient also received a guardian public on 05/13. [facility], social worker palliative care and mental health team attempted several times to have patient transferred to [facility] due to patient's severe mental illness and history of making threats however due to prolonged wait list and inability to get patient transferred, team worked with [facility] to provide alternative option for discharge which includes going to crisis bed/senior care and close outpatient follow up with [facility]. Sister again will be warned today of patients dishcarge from the mental health unit. on the day of discharge patient denied any suicidal or homicidal ideations intent or plan denied any auditory or visual hallucinations. Patient endorsed wanting to live for his future. The patient denied any access to guns or weapons. Patient denied any paranoia and did not endorse any delusions. Patient does have a significant history of substance abuse and was counseled on abstaining from all substances including alcohol and marijuana. Patient was offered however declined inpatient substance-abuse rehab. Patient elected to do outpatient substance use treatment program through [facility]. Patient was also counseled on the medications and need for regular compliance and was encouraged to follow-up with their outpatient appointment for mental health and also for primary care. Social work also to coordinate with guardian today for patient's discharge. Mental status exam: General Appearance: Patient appears to be have a rivera, stated age is alert, attempts to be cooperative. Patient is in no acute distress and has improved hygiene and grooming Behavior: Patient is calmly seated without any agitated behavior. Improving Speech: Patient's speech is fluent and nonpressured. Fairly concrete Mood/Affect: Patient reports their mood is "ok", affect is congruent Suicidality/Homicidality: Patient denies having any suicidal or homicidal ideation intent or plan. Perceptions: Patient denies any auditory or visual hallucinations. Though content/process: There is no evidence of any delusional thought content and thought process is linear and goal-directed. Memory and concentration: AOX3, grossly intact for the purposes of this session. Can spell "WORLD" backwards correctly. Judgment and insight: Chronically poor, however has improved with guarded prognosis Impression: Mood disorder unspecified, r/o bipolar vs major depressive disorder vs schizoaffective disorder Alcohol use disorder, severe Unspecified anxiety disorder personality disorder NOS Nicotine dependence Plan: -Continue with discharge today as patient has improved and stabilized psychiatrically and is not currently an imminent threat to himself and/or others. Patient will remain at chronically elevated risk for harm to self and/or others due to his impulsivity and substance abuse. -Continue medications: Lamictal 100 mg p.o. twice daily for mood stabilization, melatonin 10 mg nightly for sleep, nortriptyline 50 mg daily for mood/anxiety, patient received Invega Sustenna 234 mg IM on 05/11 loading dose, second dose of Invega Sustenna was given on 05/18, monthly maintenance dose of 156 mg IM will be due on 06/15. -Patient was counseled on the need for medication compliance and appropriate follow-up at mental health and also primary care for medical issues. Patient verbalized understanding and agreed. -Social work to help coordinate patient's discharge today with guardian and [facility], he will be going to a crisis bed with close [facility] outpatient follow-up. supervisor hand workers will also reach out to patient's sister for a duty to warn as patient is being released today. Social work also to arrange for patients follow up appointments with [facility] for psychiatric care along with follow up with primary care provider. -Patient counseled on abstaining from recreational drugs and marijuana and alcohol. Was informed/educated on the adverse effects on their physical and mental health. Patient verbally agreed and understood. Patient was offered substance abuse treatment however declined at this time. -Patient was instructed to return to the hospital or seek immediate medical care if their psychiatric or medical symptoms do worsen or reoccur. ] Allergies Allergy/AdvReac Type Severity Reaction Status Date / Time No Known Allergies Allergy Verified 02/12/24 22:29 Laboratory Results WBC 7.4 k/uL (3.8-10.6) 04/17/24 11:56 RBC 4.16 m/uL (4.30-5.90) L 04/17/24 11:56 Hgb 13.1 gm/dL (13.0-17.5) D 04/17/24 11:56 Hct 39.1 % (39.0-53.0) 04/17/24 11:56 MCV 94.0 fL (80.0-100.0) 04/17/24 11:56 MCH 31.6 pg (25.0-35.0) 04/17/24 11:56 MCHC 33.6 g/dL (31.0-37.0) 04/17/24 11:56 RDW 12.6 % (11.5-15.5) 04/17/24 11:56 Plt Count 421 k/uL (150-450) 04/17/24 11:56 MPV 6.9 04/17/24 11:56 Neutrophils % 50 % 04/17/24 11:56 Lymphocytes % 34 % 04/17/24 11:56 Monocytes % 9 % 04/17/24 11:56 Eosinophils % 5 % 04/17/24 11:56 Basophils % 1 % 04/17/24 11:56 Neutrophils # 3.7 k/uL (1.3-7.7) 04/17/24 11:56 Lymphocytes # 2.5 k/uL (1.0-4.8) 04/17/24 11:56 Monocytes # 0.7 k/uL (0-1.0) 04/17/24 11:56 Eosinophils # 0.4 k/uL (0-0.7) 04/17/24 11:56 Basophils # 0.0 k/uL (0-0.2) 04/17/24 11:56 Sodium 139 mmol/L (137-145) 04/17/24 11:56 Potassium 4.2 mmol/L (3.5-5.1) 04/17/24 11:56 Chloride 104 mmol/L (98-107) 04/17/24 11:56 Carbon Dioxide 27 mmol/L (22-30) 04/17/24 11:56 Anion Gap 8 mmol/L 04/17/24 11:56 BUN 14 mg/dL (9-20) 04/17/24 11:56 Creatinine 1.04 mg/dL (0.66-1.25) 04/17/24 11:56 Est GFR (CKD-EPI)AfAm >90 (>60 ml/min/1.73 sqM) 04/17/24 11:56 Est GFR (CKD-EPI)NonAf 85 (>60 ml/min/1.73 sqM) 04/17/24 11:56 Glucose 115 mg/dL (74-99) H 04/17/24 11:56 Calcium 9.9 mg/dL (8.4-10.2) 04/17/24 11:56 Total Bilirubin 0.4 mg/dL (0.2-1.3) 04/17/24 11:56 AST 27 U/L (17-59) 04/17/24 11:56 ALT 36 U/L (4-49) 04/17/24 11:56 Alkaline Phosphatase 53 U/L (38-126) 04/17/24 11:56 Total Protein 7.0 g/dL (6.3-8.2) 04/17/24 11:56 Albumin 4.3 g/dL (3.5-5.0) 04/17/24 11:56 Urine Color Light Yellow 03/08/24 17:45 Urine Appearance Clear (Clear) 03/08/24 17:45 Urine pH 7.5 (5.0-8.0) 03/08/24 17:45 Ur Specific [place] 1.021 (1.001-1.035) 03/08/24 17:45 Urine Protein Negative (Negative) 03/08/24 17:45 Urine Glucose (UA) Negative (Negative) 03/08/24 17:45 Urine Ketones Trace (Negative) H 03/08/24 17:45 Urine Blood Negative (Negative) 03/08/24 17:45 Urine Nitrite Negative (Negative) 03/08/24 17:45 Urine Bilirubin Negative (Negative) 03/08/24 17:45 Urine Urobilinogen <2.0 mg/dL (<2.0) 03/08/24 17:45 Ur Leukocyte Esterase Negative (Negative) 03/08/24 17:45 Urine Opiates Screen Negative (Negative) 03/08/24 17:45 Urine Methadone Screen Negative (Negative) 03/08/24 17:45 Ur Propoxyphene Screen Negative (Negative) 03/08/24 17:45 Urine Barbiturates Negative (Negative) 03/08/24 17:45 Ur Phencyclidine Scrn Negative (Negative) 03/08/24 17:45 Ur Amphetamine Screen Negative (Negative) 03/08/24 17:45 U Benzodiazepines Scrn Negative (Negative) 03/08/24 17:45 [place] <0.2 mmol/L 02/29/24 08:06 Urine Cocaine Screen Negative (Negative) 03/08/24 17:45 U Cannabinoids Screen Negative (Negative) 03/08/24 17:45 Urine Alcohol Negative (Negative) 03/08/24 17:45 U Creatinine Drug Scrn 182.0 mg/dL (>=20.0) 03/08/24 17:45 Influenza Type A (PCR) Not Detected (Not Detectd) 05/18/24 11:55 Influenza Type B (PCR) Not Detected (Not Detectd) 05/18/24 11:55 RSV (PCR) Not Detected (Not Detectd) 05/18/24 11:55 SARS-CoV-2 (PCR) Not Detected (Not Detectd) 05/18/24 11:55 Vital Signs Temp 97.1 F L 05/19/24 06:51 Pulse 121 H 05/19/24 06:51 Resp 16 05/19/24 06:51 BP 105/67 05/19/24 06:51 Pulse Ox 98 05/19/24 06:51 FiO2 Patient Condition at Discharge: Stable Plan - Discharge Summary Discharge Rx Participant: No New Discharge Prescriptions: New Melatonin 10 mg PO HS 30 Days #60 tab Ibuprofen [Motrin] 600 mg PO Q6HR PRN tab PRN Reason: Moderate Pain (Scale 4 To 6) Pantoprazole [Protonix] 40 mg PO AC-BID 30 Days #60 tab lamoTRIgine [LaMICtal] 100 mg PO BID 30 Days #60 tab Lidocaine 4% Patch 1 patch TOPICAL DAILY 14 Days #14 patch Nortriptyline [Pamelor] 50 mg PO DAILY 30 Days #30 capsule Continue Thiamine [Vitamin B-1] 100 mg PO DAILY #30 tablet Folic Acid 1 mg PO DAILY #30 tablet Discontinued Escitalopram [Lexapro] 20 mg PO DAILY Propranolol [Inderal] 40 mg PO BID Temazepam [Restoril] 15 mg PO HS PRN PRN Reason: Insomnia cloNIDine HCL [Catapres] 0.1 mg PO Q8HR Discharge Medication List Folic Acid 1 mg PO DAILY #30 tablet 03/05/23 [Rx] Thiamine [Vitamin B-1] 100 mg PO DAILY #30 tablet 03/05/23 [Rx] Ibuprofen [Motrin] 600 mg PO Q6HR PRN tab 05/19/24 [Rx] Lidocaine 4% Patch 1 patch TOPICAL DAILY 14 Days #14 patch 05/19/24 [Rx] Melatonin 10 mg PO HS 30 Days #60 tab 05/19/24 [Rx] Nortriptyline [Pamelor] 50 mg PO DAILY 30 Days #30 capsule 05/19/24 [Rx] Pantoprazole [Protonix] 40 mg PO AC-BID 30 Days #60 tab 05/19/24 [Rx] lamoTRIgine [LaMICtal] 100 mg PO BID 30 Days #60 tab 05/19/24 [Rx] Follow up Appointment(s)/Referral(s): None,Stated [Primary Care Provider] - 1-2 days Activity/Diet/Wound Care/Special Instructions: Avoid the use of street drugs and alcohol. Take all medications as prescribed. When you are in need of refills on your medications, please contact your medical provider and/or outpatient psychiatrist/provider to have this done. Please go to your scheduled outpatient appointment for aftercare treatment. If symptoms return or become worse, call the crisis line at and/or go to the nearest emergency room for evaluation. National Suicide Hotline 839 Discharge/Stand Alone Forms: AA Meetings [place] Discharge Disposition: OTHER INSTITUTION NOT DEFINED
--- NOTE | 2024-05-20 11:26 | P.PN ---
Progress Note - Text Progress Note Date: 05/20/24 Interval History: Patient was seen in his room today, and refused to speak with investigative writer today aga in. He tested positive for covid today, and has been asked to isolate to his room. He was very irritable today, and refused to speak to investigative writer much. He did deny any covid symptoms. He told the investigative writer to go away, and did not want to speak. Patient was not discharged yesterday. He apparently did not meet criteria for a crisis bed according to [facility], currently being evaluated for halfway bed. patient has been compliant with meds, and denies any side effects. Mental Status Exam: General Appearance: Patient appears to be older than stated age, improving grooming and hygiene, dressed in casual attire. Behavior: Patient is sitting, without agitated behavior but not cooperative, mildly irritable. Speech: Patient's speech is fluent and non-pressured. Mood/Affect: unable to assess Suicidality/Homicidality: unable to assess Perceptions: unable to assess Though content/process: unable to assess Memory and concentration: AOX3, grossly intact for the purposes of this session Judgment and insight: chronically Poor Assessment: Mood disorder unspecified, r/o bipolar vs major depressive disorder vs schizoaffective disorder Alcohol use disorder, severe Unspecified anxiety disorder Nicotine dependence Plan: -Patient continues to meet criteria for inpatient psychiatric admission for symptom stabilization and safety. Patient is on a deferral. -Medications: Lamictal 100 mg po bid for mood stabilization, Ativan 0.5mg Q8 hours PRN, melatonin 10mg po qhs, Pamelor 40mg daily, Invega Sustenna 234mg IM on 05/11 to help ensure compliance, next dose was on 05/18 156 mg IM., Next dose of 156mg IM due 06/15 -When necessary Ativan and Haldol for agitation/aggression. -NRT - [nicotine patch] -SW on board for discharge planning. Encouraged the patient to participate in milieu. Patient was assigned a public guardian on 05/13, patient denied for crisis bed, waiting for acceptance into halfway vs sober living??
[2024-05-20] MEDS: BENZOCAINE/MENTHOL LOZENG 1 EACH LOZENGE MUCOUS MEM PRN (20:33)
--- NOTE | 2024-05-21 11:46 | P.PN ---
Progress Note - Text Progress Note Date: 05/21/24 Interval History: [facility], and refused to speak with senior technical writer again i nitially however agreed to speak briefly. Patient was supposed to be discharged Saturday, he apparently did not meet criteria for a crisis bed according to [facility], currently being evaluated for residential bed which he was also denied today. treatment team has also exhausted [facility]. Patient is complaining of a sore throat as a symptom from Covid, but other than that. he denies any other symptoms. patient has been compliant with meds, and denies any side effects. denies any changes in his mood or anxiety. Mental Status Exam: General Appearance: Patient appears to be older than stated age, improving grooming and hygiene, dressed in casual attire. Behavior: Patient is sitting, without agitated behavior but not cooperative, mildly irritable. Speech: Patient's speech is fluent and non-pressured. Mood/Affect: unable to assess Suicidality/Homicidality: denies SI/HI Perceptions: unable to assess Though content/process: unable to assess Memory and concentration: AOX3, grossly intact for the purposes of this session Judgment and insight: chronically Poor Assessment: Mood disorder unspecified, r/o bipolar vs major depressive disorder vs schizoaffective disorder Alcohol use disorder, severe Unspecified anxiety disorder Nicotine dependence Plan: -Patient continues to meet criteria for inpatient psychiatric admission for symptom stabilization and safety. Patient is on a deferral. -Medications: Lamictal 100 mg po bid for mood stabilization, Ativan 0.5 mg Q8hrs PRN for anxiety, melatonin 10mg po qhs, Pamelor 40mg daily, Invega Sustenna 234mg IM on 05/11 to help ensure compliance, next dose was on 05/18 156 mg IM, Next dose of 156mg IM due 06/15 -When necessary Ativan and Haldol for agitation/aggression. -NRT - [nicotine patch] -SW on board for discharge planning. Encouraged the patient to participate in milieu. Patient was assigned a public guardian on 05/13. patient denied for crisis bed, denied residential by [facility]. Treatment team also attempted to get patient into [facility] psychiatric inpatient care at [facility] due to his ideations of self harm and harm to others however this option was exhuasted due to extended wait list and improving symptoms. At this time Sw looking into sober living option vs rehab? Patient is positive for COVID at this time and will delay his d/c to any facility until he is cleared medically.
[2024-05-21] MEDS: BENZOCAINE/MENTHOL LOZENG 1 EACH LOZENGE MUCOUS MEM PRN (13:32)
--- NOTE | 2024-05-22 11:49 | P.PN ---
Progress Note - Text Progress Note Date: 05/22/24 Interval History: Patient was seen laying in bed today and was agreeable to speak to speech writer. He is mildly irritable however improving. Claims that he is still feeling a bit sick from COVID. Claims that she slept on and off last night due to feeling uncomfortable. Claims that he is not having much depression or anxiety at this time, denying any other issues at this time. Fairly concrete. 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 He did sound more interested when speaking about care home as a possible backup option for him. Armored Car Guard And Driver explained that [facility] has denied him a crisis bed and also longterm placement. He is denying any suicidal or homicidal ideations intent or plan. Denying any auditory or visual hallucinations. Mental Status Exam: General Appearance: Patient appears to be older than stated age, improving grooming and hygiene, dressed in casual attire. Has a rivera. Behavior: Patient is sitting, without agitated behavior but not cooperative, mildly irritable. Improving mildly Speech: Patient's speech is fluent and non-pressured. [place] Mood/Affect: Claims his mood is "fine", affect is constricted. Suicidality/Homicidality: denies SI/HI Perceptions: Denies hallucinations Though content/process: Fairly concrete, appears to be improving, more organized. Memory and concentration: AOX3, grossly intact for the purposes of this session Judgment and insight: chronically Poor, improving mildly Assessment: Mood disorder unspecified, r/o bipolar vs major depressive disorder vs schizoaffective disorder Alcohol use disorder, severe Unspecified anxiety disorder Nicotine dependence Plan: -Patient continues to meet criteria for inpatient psychiatric admission for symptom stabilization and safety. Patient is on a deferral. -Medications: Lamictal 100 mg po bid for mood stabilization, Ativan 0.5 mg Q8hrs PRN for anxiety, melatonin 10mg po qhs, increase Pamelor 50mg daily, Invega Sustenna 234mg IM on 05/11 to help ensure compliance, next dose was on 05/18 156 mg IM, Next dose of 156mg IM due 06/15 -When necessary Ativan and Haldol for agitation/aggression. -NRT - [nicotine patch] - on board for discharge planning. Encouraged the patient to participate in milieu. Patient was assigned a public guardian on 05/13. patient denied for crisis bed, denied longterm by [facility]. Treatment team also attempted to get patient into senior care psychiatric inpatient care at [facility] due to his ideations of self harm and harm to others however this option was exhuasted due to extended wait list and improving symptoms. Patient was offered by social media sr strategy manager and also speech writer about either sober living versus rehab however patient declined both of them. He is more agreeable to go to a care home if needed however wants to go back to [place] [employer] and attempt to work. Armored Car Guard And Driver requested a [facility] intake on the unit for neck step versus ACT team and closer monitoring once patient is discharged. Likely discharge Saturday versus Saturday.
--- NOTE | 2024-05-23 10:11 | P.PN ---
Subjective Progress Note Date: 05/23/24 Principal diagnosis: Assessment: Mood disorder unspecified, r/o bipolar vs major depressive disorder vs schizoaffective disorder Alcohol use disorder, severe Unspecified anxiety disorder Nicotine dependence Patient came and talked to me in the office.. Claims that he is still feeling a bit sick from COVID. Claims that she slept on and off last night due to feeling uncomfortable, he also says he slept really really well on the Seroquel but people thought he was sleeping too much so was stopped. Claims that he is not having much depression or anxiety at this time, denying any other issues at this time. Fairly concrete. he says he has a good plan for after discharge next week. He has a car and friends that will hire him and give him a place to stay. Mental Status Exam:good eye contact cooperative General Appearance: Patient appears to be older than stated age, improving grooming and hygiene, dressed in casual attire. Has a rivera. Behavior: Patient is sitting, without agitated behavior but not cooperative, mildly irritable. Improving mildly Speech: Patient's speech is fluent and non-pressured. [place] Mood/Affect: Claims his mood is "fine", affect is constricted. Suicidality/Homicidality: denies SI/HI Perceptions: Denies hallucinations Though content/process: Fairly concrete, he stayed on topic and had a right sense of humor. Memory and concentration: AOX3, grossly intact for the purposes of this session Judgment and insight: chronically Poor, improving mildly Assessment: Mood disorder unspecified, r/o bipolar vs major depressive disorder vs tayla izoaffective disorder Alcohol use disorder, severe Unspecified anxiety disorder Nicotine dependence Plan:no change in medication at this time -Patient continues to meet criteria for inpatient psychiatric admission for symptom stabilization and safety. Patient is on a deferral. -Medications: Lamictal 100 mg po bid for mood stabilization, Ativan 0.5 mg Q8hrs PRN for anxiety, melatonin 10mg po qhs, increase Pamelor 50mg daily, Invega Sustenna 234mg IM on 05/11 to help ensure compliance, next dose was on 05/18 156 mg IM, Next dose of 156mg IM due 06/15 -When necessary Ativan and Haldol for agitation/aggression. -NRT - [nicotine patch] -SW on board for discharge planning. Encouraged the patient to participate in milieu. Patient was assigned a public guardian on 05/13. patient denied for crisis bed, denied skilled nursing by [facility]. Treatment team also attempted to get patient into terminal system operator psychiatric inpatient care at [facility] due to his ideations of self harm and harm to others however this option was exhuasted due to extended wait list and improving symptoms. Patient was offered by social insurance specialist and also pattern chart writer about either sober living versus rehab however patient declined both of them. He is more agreeable to go to a penitentiary if needed however wants to go back to [place] and attempt to work. Dogger requested a [facility] intake on the unit for neck step versus ACT team and closer monitoring once patient is discharged. Likely discharge Saturday versus Saturday. Objective - Vital Signs Vital signs: Vital Signs Temp 97.4 F L 05/23/24 08:11 Pulse 91 05/23/24 08:11 Resp 18 05/23/24 08:11 BP 110/81 05/23/24 08:11 Pulse Ox 93 L 05/23/24 08:11 FiO2 - Labs CBC & Chem 7: 04/17/24 11:56 04/17/24 11:56
--- NOTE | 2024-05-24 08:37 | P.PN ---
Subjective Progress Note Date: 05/24/24 Principal diagnosis: Assessment: Mood disorder unspecified, r/o bipolar vs major depressive disorder vs schizoaffective disorder Alcohol use disorder, severe Unspecified anxiety disorder Nicotine dependence Patient came and talked to me in the office.. he said that he had nothing to talk about that he was doing fine just waiting to be discharged in order to get on with his life all he needs is a right back to [place] since is too far to walk. He said he didn't sleep all that well but that's common and nothing unusual for him and he functions fine during the day Mental Status Exam:he has no insight no desire to work on anything but is alert good eye contact and cooperative oriented denied and did not show any signs of psychosis denies any suicidality or homicidality. No pressured speech no flight of ideas no grandiosity. Assessment: Mood disorder unspecified, r/o bipolar vs major depressive disorder vs schizoaffective disorder Alcohol use disorder, severe Unspecified anxiety disorder Nicotine dependence Plan:no change in medication at this time -Patient continues to meet criteria for inpatient psychiatric admission for symptom stabilization and safety. Patient is on a deferral. -Medications: Lamictal 100 mg po bid for mood stabilization, Ativan 0.5 mg Q8hrs PRN for anxiety, melatonin 10mg po qhs, increase Pamelor 50mg daily, Invega Sustenna 234mg IM on 05/11 to help ensure compliance, next dose was on 05/18 156 mg IM, Next dose of 156mg IM due 06/15 -When necessary Ativan and Haldol for agitation/aggression. -NRT - [nicotine patch] - on board for discharge planning. Encouraged the patient to participate in milieu. Patient was assigned a public guardian on 05/13. patient denied for crisis bed, denied residential by [facility]. Treatment team also attempted to get patient into terminal system operator psychiatric inpatient care at [facility] due to his ideations of self harm and harm to others however this option was exhuasted due to extended wait list and improving symptoms. Patient was offered by social sciences department chair and also freelance copywriter about either sober living versus rehab however patient declined both of them. He is more agreeable to go to a intermediate if needed how ever wants to go back to [place] and attempt to work. Ward Supervisor requested a [facility] intake on the unit for neck step versus ACT team and closer monitoring once patient is discharged. Likely discharge Saturday versus Saturday. Objective - Vital Signs Vital signs: Vital Signs Temp 97.4 F L 05/23/24 08:11 Pulse 91 05/23/24 08:11 Resp 18 05/23/24 08:11 BP 110/81 05/23/24 08:11 Pulse Ox 93 L 05/23/24 08:11 FiO2 - Labs CBC & Chem 7: 04/17/24 11:56 04/17/24 11:56
[2024-05-24 09:44] VITALS: RESP 16
--- NOTE | 2024-05-25 10:50 | P.PN ---
Progress Note - Text Progress Note Date: 05/25/24 Interval History: Patient was seen laying in bed today and was agreeable to speak to creative services writer. Conner holliday states that he is doing a bit better this COVID symptoms. He is denying any fever shortness of breath or coughing. Claims that he was able to sleep a bit better last night, denies any issues with his medications at this time. Continues to improve with regards to his irritability. Denied any depression or anxiety today. He did sound more interested when speaking about long term as a possible backup option for him, however was insisting on going back to [place] where he is from where he may stay with someone for the time being. He is denying any suicidal or homicidal ideations intent or plan. Denying any auditory or visual hallucinations. His appetite is fair. Mental Status Exam: General Appearance: Patient appears to be older than stated age, improving grooming and hygiene, dressed in casual attire. Has a rivera. Behavior: Patient is sitting, without agitated behavior but not cooperative, mildly irritable. Improving mildly Speech: Patient's speech is fluent and non-pressured. [place], improving mildly Mood/Affect: Claims his mood is "all right", affect is constricted. Improving mildly Suicidality/Homicidality: denies SI/HI Perceptions: Denies hallucinations Though content/process: Fairly concrete, appears to be improving, more organized. Memory and concentration: AOX3, grossly intact for the purposes of this session Judgment and insight: chronically Poor, improving mildly Assessment: Mood disorder unspecified, r/o bipolar vs major depressive disorder vs schizoaffective disorder Alcohol use disorder, severe Unspecified anxiety disorder Nicotine dependence Plan: -Patient continues to meet criteria for inpatient psychiatric admission for symptom stabilization and safety. Patient is on a deferral. -Medications: Lamictal 100 mg po bid for mood stabilization, Ativan 0.5 mg Q8hrs PRN for anxiety, melatonin 10mg po qhs, Pamelor 50mg daily, Invega Sustenna 234mg IM on 05/11 to help ensure compliance, next dose was on 05/18 156 mg IM, Next dose of 156mg IM due 06/15 -When necessary Ativan and Haldol for agitation/aggression. -NRT -nicotine patch -SW on board for discharge planning. Encouraged the patient to participate in milieu. Patient was assigned a public guardian on 05/13. patient denied for crisis bed, denied prison by [facility]. Treatment team also attempted to get patient into [facility] inpatient care at [facility] due to his ideations of self harm and harm to others however this option was exhuasted due to extended wait list and improving symptoms. Patient was offered by drug abuse social worker and also creative services writer about either sober living versus rehab however patient declined both of them. He is more agreeable to go to a long term if needed however wants to go back to [facility] and attempt to work. Neon Glass Bender requested a [facility] intake on the unit for tomorrow prior to patient's discharge, creative services writer also suggested to [facility] that patient be on the ACT team. Likely discharge tomorrow.
[2024-05-25 17:08] VITALS: BMI 26.6
[2024-05-26 09:09] VITALS: BP 127/71; PULSE 97; TEMP 97.9
--- NOTE | 2024-05-26 11:18 | P.DS ---
Providers Date of admission: 02/13/24 07:20 Expected date of discharge: 05/26/24 Attending physician: Trey Nash MD Consults: 02/13/24 07:26 Consult Physician Routine Consulting Provider: [facility] Consult Reason/Comments: For H & P for Medical Follow Up Do you want consulting provider notified?: Yes Primary care physician: Stated None - Discharge Diagnosis(es) (1) Unspecified mood [affective] disorder Current Visit: Yes Status: Acute Priority: High (2) Alcohol use disorder, severe, dependence Current Visit: Yes Status: Acute Priority: High (3) Anxiety disorder, unspecified Current Visit: Yes Status: Acute Priority: Medium (4) Nicotine dependence Current Visit: Yes Status: Acute Priority: Low Hospital Course: Consult Physician Routine Consulting Provider: [facility] Consult Reason/Comments: For H & P for Medical Follow Up Do you want consulting provider notified?: Yes Primary care physician: Stated None - Discharge Diagnosis(es) (1) Unspecified mood [affective] disorder Current Visit: Yes Status: Acute Priority: High (2) Alcohol use disorder, severe, dependence Current Visit: Yes Status: Acute Priority: High (3) Anxiety disorder, unspecified Current Visit: Yes Status: Acute Priority: Medium (4) Nicotine dependence Current Visit: Yes Status: Acute Priority: Low (5) Personality disorder Current Visit: Yes Status: Acute Priority: Medium Hospital Course: Admission HPI: Admission note was completed by advertising copy writer "Patient presented to the hospital on 02/12. As per EPS note, "Pt presents involuntarily, petitioned by the police; "Stated I just want to . If I had a gun I'd kill myself. Threatened to harm his sister while on the phone /c the Suicide Hotline." Pt admits to statements in the Petition. Pt admits to audio and visual hallucinations; pt states he "hears voices and sees animals, mostly cats, running around me." Pt states he cannot understand the voices. Stressors are pt's girlfriend of 8 months of an intentional heroin overdose November and pt found her, and pt has been kicked out of his father's house by his older sister after pt's Father ended up in the hospital. Pt states "I don't want to live anymore. I've been at war /c my sister for a very long time. I basically live in my Dad's driveway and I have an extension cord going from my car to my Dad's house. Recently I left to go do some stuff and when I came back my sister stole my extension cord. When my Dad went to the hospital, my sister got POA over my Dad and locked me out of his house." Pt states his sister lives somewhere else, however "I've been waiting for her to show up at my Dad's house so I can take care of her. At this point I'd kill her /c my bare hands. I think my Dad is now at [facility] and my sister has blocked me from seeing him. I've been wanting to kill myself for quite a while; since November 23 when Marci (pt's girlfriend of 8 months) and I've wanted to ever since. If it wasn't for me she'd be alive. She of a heroin overdose and I found her. It was intentional; she told me she wanted to the day before and asked me to get her some heroin and I refused. Her dealer delivered it to her. If I knew where he was I'd kill him too." Upon todays assessment, he stated since his girlfriend of a heroine overdose, he has not wanted to live anymore. He states he has always had anxiety, and has increasing depression, since he had found his gi rlfriend. He states that he misses her very much. He stated that he wishes his sister was , and "she's a bitch", and that he would kill her if he had the chance. Patient denies any suicidal or homicidal ideations intent or plan. At this time, patient is denying auditory and visual hallucinations. Patient denies any flight of ideas racing thoughts and increased in goal directed behavior. Patient admits to using alcohol, and smoking 3 packs of cigarettes a day." Hospital course: Upon admission to the unit patient was admitted involuntarily on a petition and certificate and a second certificate was completed and faxed with the courts. Patient ended up receiving a court order for mental health treatment initially however patients are possibly 60 days timeframe of the order and was rep ositioned and certified once again, he ended up deferring the second time with his commercial litigation attorney and agreeable to treatment. He was initially fairly isolative, poor hygiene and grooming, agitated and irritable however with time and treatment he eventually got along well with other patients on the unit and followed unit protocol. Patient was compliant with the medications and denied any side effects throughout hospital course. Patient was started on several antidepressants however failed them, he was then started on nortriptyline and increased to dose of 50 mg daily for mood/anxiety. Patient was also on Invega p.o. up to a dose of 9 mg daily, patient was given injection of Invega Sustenna 234 mg IM on 05/11, second dose of Invega 156 mg IM was due on 05/18, maintenance dose will be due on 06/15 at [facility]. Patient was also placed on Lamictal increased to dose of 100 mg p.o. twice daily for mood stabilization and melatonin 10 mg nightly for sleep patient spoke of his stressors and engaged in therapy both group and individual. Patient was also seen by medical team for history and physical exam. Throughout the course of the hospitalization patient gradually improved with regards to mood, anxiety, agitation/irritability and suicidal and homicidal thoughts, sleep and returned back to their baseline level of functioning. Patient did make comments and homicidal threats towards his sister early on during hospitalization, school social worker reached out to patient's sister several times to warn her of these threats, sister went to the court and proceeded to obtain a PPO against him. Patient also received a guardian public on 05/13. [facility], school social worker and mental health team attempted several times to have patient transferred to [facility] due to patient's severe mental illness and history of making threats however due to prolonged wait list and inability to get patient transferred, team worked with [facility] to provide alternative option for discharge which includes going to crisis bed/care home and close outpatient follow up with [facility] however [facility] did not accept patient into care home pr crisis bed and also declined patient to be admitted onto ACT or Next step program. Sister again will be warned today of patients dishcarge from the mental health unit by CORDELIA. on the day of discharge patient denied any suicidal or homicidal ideations intent or plan denied any auditory or visual hallucinations. Patient endorsed wanting to live for his future and to get a job. The patient denied any access to guns or weapons. Patient denied any paranoia and did not endorse any delusions. Patient does have a significant history of substance abuse and was counseled on abstaining from all substances including alcohol and marijuana. Patient was offered however declined inpatient substance-abuse rehab. Patient elected to do outpatient substance use treatment program through [facility]. Patient was also counseled on the medications and need for regular compliance and was encouraged to follow-up with their outpatient appointment for mental health and also for primary care. Social work also to coordinate with guardian today for patient's discharge. Patient will be given fpc information and low-cost motel information today however patient insisted that he wanted to be given a ride to back to his preadmission address and claims that he will be able to find a job and possibly stay with a friend and [place] and continue following up with [facility]. Mental status exam: General Appearance: Patient appears to be have a rivera, stated age is alert, attempts to be cooperative. Patient is in no acute distress and has improved hygiene and grooming Behavior: Patient is calmly seated without any agitated behavior. Improving Speech: Patient's speech is fluent and nonpressured. Fairly concrete Mood/Affect: Patient reports their mood is "ok", affect is congruent Suicidality/Homicidality: Patient denies having any suicidal or homicidal ideation intent or plan. Perceptions: Patient denies any auditory or visual hallucinations. Though content/process: There is no evidence of any delusional thought content and thought process is linear and goal-directed. Memory and concentration: AOX3, grossly intact for the purposes of this session. Can spell "WORLD" backwards correctly. Judgment and insight: Chronically poor, however has improved with guarded prognosis Impression: Mood disorder unspecified, r/o bipolar vs major depressive disorder vs schizoaffective disorder Alcohol use disorder, severe Unspecified anxiety disorder personality disorder NOS Nicotine dependence Plan: -Continue with discharge today as patient has improved and stabilized psychiatrically and is not currently an imminent threat to himself and/or others. Patient will remain at chronically elevated risk for harm to self and/or others due to his impulsivity and substance abuse. -Continue medications: Lamictal 100 mg p.o. twice daily for mood stabilization, melatonin 10 mg nightly for sleep, nortriptyline 50 mg daily for mood/anxiety, patient received Invega Sustenna 234 mg IM on 05/11 loading dose, second dose of Invega Sustenna was given on 05/18, monthly maintenance dose of 156 mg IM to be given on 06/15. -Patient was counseled on the need for medication compliance and appropriate follow-up at mental health and also primary care for medical issues. Patient verbalized understanding and agreed. -Social work to help coordinate patient's discharge today with guardian and [facility], he will be going to either fpc vs low cost motel vs pre admission address vs staying with a friend in [place]. farmworker vegetable will also reach out to patient's sister for a duty to warn as patient is being released today. Social work also to arrange for patients follow up appointments with [facility] for psychiatric care along with follow up with primary care provider. -Patient counseled on abstaining from recreational drugs and marijuana and alcohol. Was informed/educated on the adverse effects on their physical and mental health. Patient verbally agreed and understood. Patient was offered substance abuse treatment however declined at this time. -Patient was instructed to return to the hospital or seek immediate medical care if their psychiatric or medical symptoms do worsen or reoccur. ] Allergies Allergy/AdvReac Type Severity Reaction Status Date / Time No Known Allergies Allergy Verified 02/12/24 22:29 Laboratory Results WBC 7.4 k/uL (3.8-10.6) 04/17/24 11:56 RBC 4.16 m/uL (4.30-5.90) L 04/17/24 11:56 Hgb 13.1 gm/dL (13.0-17.5) D 04/17/24 11:56 Hct 39.1 % (39.0-53.0) 04/17/24 11:56 MCV 94.0 fL (80.0-100.0) 04/17/24 11:56 MCH 31.6 pg (25.0-35.0) 04/17/24 11:56 MCHC 33.6 g/dL (31.0-37.0) 04/17/24 11:56 RDW 12.6 % (11.5-15.5) 04/17/24 11:56 Plt Count 421 k/uL (150-450) 04/17/24 11:56 MPV 6.9 04/17/24 11:56 Neutrophils % 50 % 04/17/24 11:56 Lymphocytes % 34 % 04/17/24 11:56 Monocytes % 9 % 04/17/24 11:56 Eosinophils % 5 % 04/17/24 11:56 Basophils % 1 % 04/17/24 11:56 Neutrophils # 3.7 k/uL (1.3-7.7) 04/17/24 11:56 Lymphocytes # 2.5 k/uL (1.0-4.8) 04/17/24 11:56 Monocytes # 0.7 k/uL (0-1.0) 04/17/24 11:56 Eosinophils # 0.4 k/uL (0-0.7) 04/17/24 11:56 Basophils # 0.0 k/uL (0-0.2) 04/17/24 11:56 Sodium 139 mmol/L (137-145) 04/17/24 11:56 Potassium 4.2 mmol/L (3.5-5.1) 04/17/24 11:56 Chloride 104 mmol/L (98-107) 04/17/24 11:56 Carbon Dioxide 27 mmol/L (22-30) 04/17/24 11:56 Anion Gap 8 mmol/L 04/17/24 11:56 BUN 14 mg/dL (9-20) 04/17/24 11:56 Creatinine 1.04 mg/dL (0.66-1.25) 04/17/24 11:56 Est GFR (CKD-EPI)AfAm >90 (>60 ml/min/1.73 sqM) 04/17/24 11:56 Est GFR (CKD-EPI)NonAf 85 (>60 ml/min/1.73 sqM) 04/17/24 11:56 Glucose 115 mg/dL (74-99) H 04/17/24 11:56 Calcium 9.9 mg/dL (8.4-10.2) 04/17/24 11:56 Total Bilirubin 0.4 mg/dL (0.2-1.3) 04/17/24 11:56 AST 27 U/L (17-59) 04/17/24 11:56 ALT 36 U/L (4-49) 04/17/24 11:56 Alkaline Phosphatase 53 U/L (38-126) 04/17/24 11:56 Total Protein 7.0 g/dL (6.3-8.2) 04/17/24 11:56 Albumin 4.3 g/dL (3.5-5.0) 04/17/24 11:56 Urine Color Light Yellow 03/08/24 17:45 Urine Appearance Clear (Clear) 03/08/24 17:45 Urine pH 7.5 (5.0-8.0) 03/08/24 17:45 Ur Specific [place] 1.021 (1.001-1.035) 03/08/24 17:45 Urine Protein Negative (Negative) 03/08/24 17:45 Urine Glucose (UA) Negative (Negative) 03/08/24 17:45 Urine Ketones Trace (Negative) H 03/08/24 17:45 Urine Blood Negative (Negative) 03/08/24 17:45 Urine Nitrite Negative (Negative) 03/08/24 17:45 Urine Bilirubin Negative (Negative) 03/08/24 17:45 Urine Urobilinogen <2.0 mg/dL (<2.0) 03/08/24 17:45 Ur Leukocyte Esterase Negative (Negative) 03/08/24 17:45 Urine Opiates Screen Negative (Negative) 03/08/24 17:45 Urine Methadone Screen Negative (Negative) 03/08/24 17:45 Ur Propoxyphene Screen Negative (Negative) 03/08/24 17:45 Urine Barbiturates Negative (Negative) 03/08/24 17:45 Ur Phencyclidine Scrn Negative (Negative) 03/08/24 17:45 Ur Amphetamine Screen Negative (Negative) 03/08/24 17:45 U Benzodiazepines Scrn Negative (Negative) 03/08/24 17:45 [place] <0.2 mmol/L 02/29/24 08:06 Urine Cocaine Screen Negative (Negative) 03/08/24 17:45 U Cannabinoids Screen Negative (Negative) 03/08/24 17:45 Urine Alcohol Negative (Negative) 03/08/24 17:45 U Creatinine Drug Scrn 182.0 mg/dL (>=20.0) 03/08/24 17:45 Influenza Type A (PCR) Not Detected (Not Detectd) 05/18/24 11:55 Influenza Type B (PCR) Not Detected (Not Detectd) 05/18/24 11:55 RSV (PCR) Not Detected (Not Detectd) 05/18/24 11:55 SARS-CoV-2 (PCR) Not Detected (Not Detectd) 05/18/24 11:55 Vital Signs Temp 97.1 F L 05/19/24 06:51 Pulse 121 H 05/19/24 06:51 Resp 16 05/19/24 06:51 BP 105/67 05/19/24 06:51 Pulse Ox 98 05/19/24 06:51 FiO2 Patient Condition at Discharge: Stable Plan - Discharge Summary Discharge Rx Participant: No New Discharge Prescriptions: New Melatonin 10 mg PO HS 30 Days #60 tab Ibuprofen [Motrin] 600 mg PO Q6HR PRN tab PRN Reason: Moderate Pain (Scale 4 To 6) Pantoprazole [Protonix] 40 mg PO AC-BID 30 Days #60 tab lamoTRIgine [LaMICtal] 100 mg PO BID 30 Days #60 tab Lidocaine 4% Patch 1 patch TOPICAL DAILY 14 Days #14 patch Nortriptyline [Pamelor] 50 mg PO DAILY 30 Days #30 capsule Continue Thiamine [Vitamin B-1] 100 mg PO DAILY #30 tablet Folic Acid 1 mg PO DAILY #30 tablet Discontinued Escitalopram [Lexapro] 20 mg PO DAILY Propranolol [Inderal] 40 mg PO BID Temazepam [Restoril] 15 mg PO HS PRN PRN Reason: Insomnia cloNIDine HCL [Catapres] 0.1 mg PO Q8HR Discharge Medication List Folic Acid 1 mg PO DAILY #30 tablet 03/05/23 [Rx] Thiamine [Vitamin B-1] 100 mg PO DAILY #30 tablet 03/05/23 [Rx] Ibuprofen [Motrin] 600 mg PO Q6HR PRN tab 05/19/24 [Rx] Lidocaine 4% Patch 1 patch TOPICAL DAILY 14 Days #14 patch 05/19/24 [Rx] Melatonin 10 mg PO HS 30 Days #60 tab 05/19/24 [Rx] Nortriptyline [Pamelor] 50 mg PO DAILY 30 Days #30 capsule 05/19/24 [Rx] Pantoprazole [Protonix] 40 mg PO AC-BID 30 Days #60 tab 05/19/24 [Rx] lamoTRIgine [LaMICtal] 100 mg PO BID 30 Days #60 tab 05/19/24 [Rx] Follow up Appointment(s)/Referral(s): None,Stated [Primary Care Provider] - 1-2 days Activity/Diet/Wound Care/Special Instructions: Avoid the use of street drugs and alcohol. Take all medications as prescribed. When you are in need of refills on your medications, please contact your medical provider and/or outpatient psychiatrist/provider to have this done. Please go to your scheduled outpatient appointment for aftercare treatment. If symptoms return or become worse, call the crisis line at and/or go to the nearest emergency room for evaluation. National Suicide Hotline 988 Discharge/Stand Alone Forms: AA Meetings [place] Discharge Disposition: OTHER INSTITUTION NOT DEFINED Patient Condition at Discharge: Stable Plan - Discharge Summary Discharge Rx Participant: No New Discharge Prescriptions: New Melatonin 10 mg PO HS 30 Days #60 tab Ibuprofen [Motrin] 600 mg PO Q6HR PRN tab PRN Reason: Moderate Pain (Scale 4 To 6) Pantoprazole [Protonix] 40 mg PO AC-BID 30 Days #60 tab lamoTRIgine [LaMICtal] 100 mg PO BID 30 Days #60 tab Lidocaine 4% Patch 1 patch TOPICAL DAILY 14 Days #14 patch Nortriptyline [Pamelor] 50 mg PO DAILY 30 Days #30 capsule Paliperidone IM [Invega Sustenna] 156 mg IM QMONTHLY #1 each Continue Thiamine [Vitamin B-1] 100 mg PO DAILY #30 tablet Folic Acid 1 mg PO DAILY #30 tablet Discontinued Escitalopram [Lexapro] 20 mg PO DAILY Propranolol [Inderal] 40 mg PO BID Temazepam [Restoril] 15 mg PO HS PRN PRN Reason: Insomnia cloNIDine HCL [Catapres] 0.1 mg PO Q8HR Discharge Medication List Folic Acid 1 mg PO DAILY #30 tablet 03/05/23 [Rx] Thiamine [Vitamin B-1] 100 mg PO DAILY #30 tablet 03/05/23 [Rx] Ibuprofen [Motrin] 600 mg PO Q6HR PRN tab 05/19/24 [Rx] Lidocaine 4% Patch 1 patch TOPICAL DAILY 14 Days #14 patch 05/19/24 [Rx] Melatonin 10 mg PO HS 30 Days #60 tab 05/19/24 [Rx] Nortriptyline [Pamelor] 50 mg PO DAILY 30 Days #30 capsule 05/19/24 [Rx] Pantoprazole [Protonix] 40 mg PO AC-BID 30 Days #60 tab 05/19/24 [Rx] lamoTRIgine [LaMICtal] 100 mg PO BID 30 Days #60 tab 05/19/24 [Rx] Paliperidone IM [Invega Sustenna] 156 mg IM QMONTHLY #1 each 05/26/24 [Rx] Follow up Appointment(s)/Referral(s): [facility] [Outside] - 05/26/24 1:00 pm (on the unit) [facility] - 1 Week Patient Instructions/Handouts: How to Stop Smoking (DC), Mood Disorders (DC), Abuse of Alcohol (DC), Anxiety (ED) Activity/Diet/Wound Care/Special Instructions: Avoid the use of street drugs and alcohol. Take all medications as prescribed. When you are in need of refills on your medications, please contact your medical provider and/or outpatient psychiatrist/provider to have this done. Please go to your scheduled outpatient appointment for aftercare treatment. If symptoms return or become worse, call the crisis line at and/or go to the nearest emergency room for evaluation. National Suicide Hotline 206 Discharge/Stand Alone Forms: AA Meetings [facility] Discharge Disposition: OTHER INSTITUTION NOT DEFINED
== END 2024-05-26 15:15 | disposition home or self-care (01) | DRG 753 ==
LOC: EC 22:15 → 3MHU 02-13 07:20
PROVIDERS: ADMIT Psychiatry & Neurology Psychiatry; ATTEND Psychiatry & Neurology Psychiatry
DX: F39 Unspecified mood [affective] disorder (principal); F19.20 Other psychoactive substance dependence, uncomplicated; F10.20 Alcohol dependence, uncomplicated; F17.210 Nicotine dependence, cigarettes, uncomplicated; I10 Essential (primary) hypertension; I25.10 Atherosclerotic heart disease of native coronary artery without angina pectoris; J44.0 Chronic obstructive pulmonary disease with (acute) lower respiratory infection; K21.9 Gastro-esophageal reflux disease without esophagitis; K57.32 Diverticulitis of large intestine without perforation or abscess without bleeding; R45.850 Homicidal ideations; U07.1 COVID-19; Z59.02 Unsheltered homelessness; Z59.6 Low income; Z91.51 Personal history of suicidal behavior
CPT/HCPCS: 80053; 80178; 80306; 81003; 82075; 85025; 87635; 93005

== ENCOUNTER 2024-05-27 07:27 | Emergency (ER) | payer OTHER ==
--- NOTE | 2024-05-27 07:41 | ED ---
Psych HPI - General Chief Complaint: Psychiatric Symptoms Stated Complaint: foot/leg pain Time Seen by Provider: 05/27/24 07:31 Source: patient, EMS, RN notes reviewed Mode of arrival: EMS Limitations: no limitations - History of Present Illness Initial Comments: 48-year-old male presents emergency department chief complaint of foot pain, depression/ideation. Patient was discharged from [facility] a jail. He states he did not agree with staying in a jail so he attempted to walk to [place] where his car is. Patient states he does not have a psych meds he states he thought about jumping in front of a car or jump into the water. Patient denies any illicit drug use or any alcohol use today. Patient states he has blistering of his feet. - Related Data Home Medications Medication Instructions Recorded Confirmed Ibuprofen [Motrin] 600 mg PO DIRECTED PRN 05/27/24 Lidocaine 4% Patch 1 patch TRANSDERM DIRECTED 05/27/24 Melatonin 10 mg PO DIRECTED 05/27/24 Nortriptyline [Pamelor] 50 mg PO DIRECTED 05/27/24 Paliperidone IM [Invega Sustenna] 156 mg IM Q28D 05/27/24 Pantoprazole [Protonix] 40 mg PO DIRECTED 05/27/24 lamoTRIgine [LaMICtal] 100 mg PO DIRECTED 05/27/24 Allergies Allergy/AdvReac Type Severity Reaction Status Date / Time No Known Allergies Allergy Verified 05/27/24 10:55 Review of Systems ROS Statement: Those systems with pertinent positive or pertinent negative responses have been documented in the HPI. ROS Other: All systems not noted in ROS Statement are negative. Past Medical History Past Medical History: No Reported History History of Any Multi-Drug Resistant Organisms: None Reported Additional Past Surgical History / Comment(s): neck Past Anesthesia/Blood Transfusion Reactions: No Reported Reaction Past Psychological History: Anxiety, Depression Smoking Status: Current every day smoker, Vaper Past Alcohol Use History: Daily, Heavy Past Drug Use History: None Reported General Exam Limitations: no limitations General appearance: alert, in no apparent distress Head exam: Present: atraumatic, normocephalic, normal inspection Eye exam: Present: normal appearance, PERRL, EOMI. Absent: scleral icterus, conjunctival injection, periorbital swelling Respiratory exam: Present: normal lung sounds bilaterally. Absent: respiratory distress, wheezes, rales, rhonchi, stridor Cardiovascular Exam: Present: regular rate, normal rhythm, normal heart sounds. Absent: systolic murmur, diastolic murmur, rubs, gallop, clicks GI/Abdominal exam: Present: soft, normal bowel sounds. Absent: distended, tenderness, guarding, rebound, rigid Extremities exam: Present: other (Blisters noted on plantar surface of the feet) Neurological exam: Present: alert, oriented X3 Psychiatric exam: Present: flat affect Course Vital Signs 05/27/24 07:39 Temperature 97.5 F L Pulse Rate 91 Respiratory 18 Rate Blood Pressure 125/82 O2 Sat by Pulse 98 Oximetry Medical Decision Making - Medical Decision Making Was pt. sent in by a medical professional or institution (, PA, [employer], urgent care, hospital, or fdc...) When possible be specific @ -No Did you speak to anyone other than the patient for history (EMS, parent, family, police, friend...)? What history was obtained from this source @ -No Did you review nursing and triage notes (agree or disagree)? Why? @ -I reviewed and agree with nursing and triage notes Were old charts reviewed (outside hosp., previous admission, EMS record, old EKG, old radiological studies, urgent care reports/EKG's, fdc records)? Report findings @ -No old charts were reviewed Differential Diagnosis (chest pain, altered mental status, abdominal pain women, abdominal pain men, vaginal bleeding, weakness, fever, dyspnea, syncope, headache, dizziness, GI bleed, back pain, seizure, CVA, palpatations, mental health, musculoskeletal)? @ -Differential Mental Health Depression, anxiety, bipolar, psychosis, schizophrenia, borderline personality, situational depression, adjustment disorder, behavioral disorder, brain tumor, malingering, substance abuse, encephalopathy, medication reaction, dementia, hypothyroidism, degenerative neurologic disorder, lupus.... This is not meant to be all-inclusive list EKG interpreted by me (3pts min.). @ -None X-rays interpreted by me (1pt min.). @ -None done CT interpreted by me (1pt min.). @ -None done U/S interpreted by me (1pt. min.). @ -None done What testing was considered but not performed or refused? (CT, X-rays, U/S, labs)? Why? @ -None What meds were considered but not given or refused? Why? @ -None Did you discuss the management of the patient with other professionals (professionals i.e. , PA, [employer], lab, RT, psych nurse, social sciences instructor, corporate concierge, teacher, equal opportunity officer, patient case coordinator)? Give summary @ -No Was smoking cessation discussed for >3mins.? @ -No Was critical care preformed (if so, how long)? @ -No Were there social determinants of health that impacted care today? How? (Homelessness, low income, unemployed, alcoholism, drug addiction, transportation, low edu. Level, literacy, decrease access to med. care, fdc, rehab)? @ -No Was there de-escalation of care discussed even if they declined (Discuss DNR or withdrawal of care, Hospice)? DNR status @ -No What co-morbidities impacted this encounter? (DM, HTN, Smoking, COPD, CAD, Cancer, CVA, ARF, Chemo, Hep., AIDS, mental health diagnosis, sleep apnea, morbid obesity)? @ -None Was patient admitted / discharged? Hospital course, mention meds given and route, prescriptions, significant lab abnormalities, going to OR and other pertinent info. @ -Discharged patient was eval by EPS recommends outpatient treatment patient is being sent to [facility] for his medications and brought to his vehicle as the patient requested. Patient does have blistering of his feet there is no open sores. Patient discharged advised take Tylenol Motrin Undiagnosed new problem with uncertain prognosis? @ -No Drug Therapy requiring intensive monitoring for toxicity (Heparin, Nitro, Insulin, Cardizem)? @ -No Were any procedures done? @ -No Diagnosis/symptom? @ -Foot pain, blister, depression Acute, or Chronic, or Acute on Chronic? @ -Acute Uncomplicated (without systemic symptoms) or Complicated (systemic symptoms)? @ -uncomplicated Side effects of treatment? @ -None Exacerbation, Progression, or Severe Exacerbation? @ -No Poses a threat to life or bodily function? How? (Chest pain, [place], [place], pneumonia, PE, COPD, DKA, ARF, appy, cholecystitis, CVA, Diverticulitis, Homicidal, Suicidal, threat to staff... and all critical care pts) @ -No - Lab Data Lab Results 05/27/24 Range/Units 08:04 Urine Opiates Screen Not Detected (NotDetected) Ur Oxycodone Screen Not Detected (NotDetected) Urine Methadone Screen Not Detected (NotDetected) Ur Barbiturates Screen Not Detected (NotDetected) U Tricyclic Antidepress Detected H (NotDetected) Ur Phencyclidine Scrn Not Detected (NotDetected) Ur Amphetamines Screen Not Detected (NotDetected) U Methamphetamines Scrn Not Detected (NotDetected) U Benzodiazepines Scrn Not Detected (NotDetected) Urine Cocaine Screen Not Detected (NotDetected) U Marijuana (THC) Screen Not Detected (NotDetected) Disposition Clinical Impression: Depression, Foot pain, Blister of foot Disposition: HOME SELF-CARE Condition: Stable Additional Instructions: Please return to the Emergency Department if symptoms worsen or any other co ncerns. Is patient prescribed a controlled substance at d/c from ED?: No Referrals: Zeke Morales MD [Primary Care Provider] - 1-2 days Time of Disposition: 11:03
[2024-05-27] MEDS: IBUPROFEN 600 MG TAB PO STA (08:05)
[2024-05-27 08:29] LABS: Amphetamine Screen,Urine Not Detected (NotDetected); Barbiturate Screen,Urine Not Detected (NotDetected); Benzodiazepines Screen,Urine Not Detected (NotDetected); Cocaine Screen,Urine Not Detected (NotDetected); Methadone Screen, Urine Not Detected (NotDetected); Opiate Screen,Urine Not Detected (NotDetected); Oxycodone Screen, Urine Not Detected (NotDetected); Phencyclidine Screen,Urine Not Detected (NotDetected); Tricyclic Antidepressant,Urine Detected (NotDetected); Urn Cannabinoid Scrn Not Detected (NotDetected)
[2024-05-27 11:24] VITALS: BP 116/77; PULSE 86; RESP 16; TEMP 98
== END 2024-05-27 11:31 | disposition home or self-care (01) ==
LOC: EEVIPCON 07:27 → EC 07:27
CPT/HCPCS: 80306; 82075; 99283

== ENCOUNTER 2024-07-01 16:25 | Emergency (ER) | payer OTHER ==
[2024-07-01] MEDS: IBUPROFEN 600 MG TAB PO STA (17:10)
[2024-07-01 17:42] LABS: Amphetamine Screen,Urine Not Detected (NotDetected); Barbiturate Screen,Urine Not Detected (NotDetected); Benzodiazepines Screen,Urine Not Detected (NotDetected); Cocaine Screen,Urine Not Detected (NotDetected); Methadone Screen, Urine Not Detected (NotDetected); Opiate Screen,Urine Not Detected (NotDetected); Oxycodone Screen, Urine Not Detected (NotDetected); Phencyclidine Screen,Urine Not Detected (NotDetected); Tricyclic Antidepressant,Urine Not Detected (NotDetected); Urn Cannabinoid Scrn Not Detected (NotDetected)
--- NOTE | 2024-07-01 19:09 | ED ---
General Adult HPI <Julius Sosa - Last Filed: 07/02/24 11:36> - General Source: patient, EMS Mode of arrival: EMS Limitations: no limitations <Heather Choe - Last Filed: 07/03/24 00:57> - General Chief complaint: Fall Stated complaint: fall/ETOH Time Seen by Provider: 07/01/24 16:30 - History of Present Illness Initial comments: 48-year-old male who presents emergency department reporting suicidal ideations. Patient states that he has been drinking today. He drinks every day. He is homeless. He tripped today and fell down a hill was having difficulty standing back up. EMS arrived on scene. He reported that he wanted to kill himself because he does not want a be homeless anymore. He admits to some left knee pain from the fall but denies any other injuries. Has been ambulatory on it. He was not given anything for pain control. Patient denies any attempts at harming himself. Admits to history of depression. does not take any medications. Has been hospitalized previously for his mental health. (Heather Choe) - Related Data Home Medications Medication Instructions Recorded Confirmed Ibuprofen [Motrin] 600 mg PO DIRECTED PRN 05/27/24 05/27/24 Lidocaine 4% Patch 1 patch TRANSDERM DIRECTED 05/27/24 05/27/24 Melatonin 10 mg PO DIRECTED 05/27/24 05/27/24 Nortriptyline [Pamelor] 50 mg PO DIRECTED 05/27/24 05/27/24 Paliperidone IM [Invega Sustenna] 156 mg IM Q28D 05/27/24 05/27/24 Pantoprazole [Protonix] 40 mg PO DIRECTED 05/27/24 05/27/24 lamoTRIgine [LaMICtal] 100 mg PO DIRECTED 05/27/24 05/27/24 Allergies Allergy/AdvReac Type Severity Reaction Status Date / Time No Known Allergies Allergy Verified 05/27/24 10:55 Review of Systems ROS Other: All systems not noted in ROS Statement are negative. <Julius Sosa - Last Filed: 07/02/24 11:36> ROS Other: All systems not noted in ROS Statement are negative. <Heather Choe - Last Filed: 07/03/24 00:57> ROS Statement: Those systems with pertinent positive or pertinent negative responses have been documented in the HPI. Past Medical History Past Medical History: No Reported History History of Any Multi-Drug Resistant Organisms: None Reported Additional Past Surgical History / Comment(s): neck Past Anesthesia/Blood Transfusion Reactions: No Reported Reaction Past Psychological History: Anxiety, Depression Smoking Status: Current every day smoker, Vaper Past Alcohol Use History: Daily, Heavy Past Drug Use History: None Reported <Heather Choe - Last Filed: 07/03/24 00:57> General Exam Limitations: no limitations General appearance: alert, appears intoxicated Head exam: Present: atraumatic, normocephalic, normal inspection Eye exam: Present: normal appearance, PERRL, EOMI. Absent: scleral icterus, conjunctival injection, periorbital swelling ENT exam: Present: normal exam, mucous membranes moist Neck exam: Present: normal inspection. Absent: tenderness, meningismus, lymphadenopathy Respiratory exam: Present: normal lung sounds bilaterally. Absent: respiratory distress, wheezes, rales, rhonchi, stridor Cardiovascular Exam: Present: regular rate, normal rhythm, normal heart sounds. Absent: systolic murmur, diastolic murmur, rubs, gallop, clicks GI/Abdominal exam: Present: soft, normal bowel sounds. Absent: distended, tenderness, guarding, rebound, rigid Extremities exam: Present: normal inspection, full ROM, normal capillary refill. Absent: tenderness, pedal edema, joint swelling, calf tenderness Back exam: Present: normal inspection Neurological exam: Present: alert, oriented X3, CN II-XII intact Psychiatric exam: Present: depressed Skin exam: Present: warm, dry, abrasion (Over the left knee measuring 4 x 4 cm. No active bleeding.). Absent: rash <Heather Choe - Last Filed: 07/03/24 00:57> Course Vital Signs 07/01/24 07/01/24 07/02/24 16:27 17:30 06:46 Temperature 97.5 F L 98.0 F 98.2 F Pulse Rate 74 77 73 Respiratory 18 16 18 Rate Blood Pressure 96/67 96/62 109/67 O2 Sat by Pulse 97 98 100 Oximetry 07/02/24 12:35 Temperature 98.2 F Pulse Rate 73 Respiratory 18 Rate Blood Pressure 102/66 O2 Sat by Pulse 98 Oximetry Medical Decision Making - Lab Data Result diagrams: 07/02/24 10:06 07/02/24 10:06 <Julius Sosa - Last Filed: 07/02/24 11:36> - Lab Data Result diagrams: 07/02/24 10:06 07/02/24 10:06 <DaijaHeather Jenae - Last Filed: 07/03/24 00:57> - Medical Decision Making Diagnosis/symptom? @ -Suicidal ideations Acute, or Chronic, or Acute on Chronic? @ -Acute Uncomplicated (without systemic symptoms) or Complicated (systemic symptoms)? @ -Complicated Side effects of treatment? @ -None Exacerbation, Progression, or Severe Exacerbation] @ -No Poses a threat to life or bodily function? @ -Yes if the patient does not get treatment patient may kill himself. Diagnosis/symptom? @ -Depression Acute, or Chronic, or Acute on Chronic? @ -Acute Uncomplicated (without systemic symptoms) or Complicated (systemic symptoms)? @ -Complicated Side effects of treatment? @ -None Exacerbation, Progression, or Severe Exacerbation] @ -No Poses a threat to life or bodily function? @ -No (Julius Sosa) Was pt. sent in by a medical professional or institution (, PA, [employer], urgent care, hospital, or fpc...) When possible be specific @ -No Did you speak to anyone other than the patient for history (EMS, parent, family, police, friend...)? What history was obtained from this source @ -Spoke with EMS for history Did you review nursing and triage notes (agree or disagree)? Why? @ -I reviewed and agree with nursing and triage notes Were old charts reviewed (outside hosp., previous admission, EMS record, old EKG, old radiological studies, urgent care reports/EKG's, fpc records)? Report findings @ -No old charts were reviewed Differential Diagnosis (chest pain, altered mental status, abdominal pain women, abdominal pain men, vaginal bleeding, weakness, fever, dyspnea, syncope, headache, dizziness, GI bleed, back pain, seizure, CVA, palpatations, mental health, musculoskeletal)? @ -Differential Mental Health Depression, anxiety, bipolar, psychosis, schizophrenia, borderline personality, situational depression, adjustment disorder, behavioral disorder, brain tumor, malingering, substance abuse, encephalopathy, medication reaction, dementia, hypothyroidism, degenerative neurologic disorder, lupus.... This is not meant to be all-inclusive list EKG interpreted by me (3pts min.). @ -Not done X-rays interpreted by me (1pt min.). @ -None done CT interpreted by me (1pt min.). @ -None done U/S interpreted by me (1pt. min.). @ -None done What testing was considered but not performed or refused? (CT, X-rays, U/S, labs)? Why? @ -None What meds were considered but not given or refused? Why? @ -None Did you discuss the management of the patient with other professionals (professionals i.e. DrJose, PA, [employer], lab, RT, psych nurse, social science teacher, computer systems hardware analyst, teacher, conservation science officer, manager of case management)? Give summary @ -Spoke with the EPS who will evaluate the patient once sober Was smoking cessation discussed for >3mins.? @ -No Was critical care preformed (if so, how long)? @ -No Were there social determinants of health that impacted care today? How? (Homelessness, low income, unemployed, alcoholism, drug addiction, transportation, low edu. Level, literacy, decrease access to med. care, [facility], rehab)? @ -Homelessness Was there de-escalation of care discussed even if they declined (Discuss DNR or withdrawal of care, Hospice)? DNR status @ -No What co-morbidities impacted this encounter? (DM, HTN, Smoking, COPD, CAD, Cancer, CVA, ARF, Chemo, Hep., AIDS, mental health diagnosis, sleep apnea, morbid obesity)? @ -None Was patient admitted / discharged? Hospital course, mention meds given and route, prescriptions, significant lab abnormalities, going to OR and other pertinent info. @ -Upon arrival patient seen and evaluated. Thorough history and physical exam was performed. I did recommend x-ray of the patient's knee due to his fall however he refused. Urine drug screen is ordered. Patient is intoxicated. He will be sober at 1130 and EPS will evaluate at that time. Patient is signed out to oncoming physician Dr. Nguyễn Undiagnosed new problem with uncertain prognosis? @ -No Drug Therapy requiring intensive monitoring for toxicity (Heparin, Nitro, Insulin, Cardizem)? @ -No Were any procedures done? @ -No Diagnosis/symptom? @ -Acute depression, suicidal ideation, alcohol intoxication Acute, or Chronic, or Acute on Chronic? @ -Acute Uncomplicated (without systemic symptoms) or Complicated (systemic symptoms)? @ -Complicated Side effects of treatment? @ -No Exacerbation, Progression, or Severe Exacerbation? @ -No Poses a threat to life or bodily function? How? (Chest pain, USA, [place], pneumonia, PE, COPD, DKA, ARF, appy, cholecystitis, CVA, Diverticulitis, Homicidal, Suicidal, threat to staff... and all critical care pts) @ -Yes as patient wants to harm himself (Heather Choe) - Lab Data Lab Results 07/01/24 07/02/24 07/02/24 Range/Units 17:20 10:06 10:06 WBC 7.7 (3.8-10.6) k/uL RBC 4.46 (4.30-5.90) m/uL Hgb 13.8 (13.0-17.5) gm/dL Hct 40.3 (39.0-53.0) % MCV 90.5 (80.0-100.0) fL MCH 30.9 (25.0-35.0) pg MCHC 34.1 (31.0-37.0) g/dL RDW 12.9 (11.5-15.5) % Plt Count 430 (150-450) k/uL MPV 7.2 Neutrophils % 52 % Lymphocytes % 38 % Monocytes % 5 % Eosinophils % 4 % Basophils % 0 % Neutrophils # 4.0 (1.3-7.7) k/uL Lymphocytes # 2.9 (1.0-4.8) k/uL Monocytes # 0.4 (0-1.0) k/uL Eosinophils # 0.3 (0-0.7) k/uL Basophils # 0.0 (0-0.2) k/uL Sodium 141 (137-145) mmol/L Potassium 4.1 (3.5-5.1) mmol/L Chloride 113 H (98-107) mmol/L Carbon Dioxide 18 L (22-30) mmol/L Anion Gap 10 mmol/L BUN 13 (9-20) mg/dL Creatinine 0.89 (0.66-1.25) mg/dL Est GFR (CKD-EPI)AfAm >90 (>60 ml/min/1.73 sqM) Est GFR (CKD-EPI)NonAf >90 (>60 ml/min/1.73 sqM) Glucose 80 (74-99) mg/dL Calcium 9.5 (8.4-10.2) mg/dL Total Bilirubin 0.7 (0.2-1.3) mg/dL AST 24 (17-59) U/L ALT 17 (4-49) U/L Alkaline Phosphatase 59 (38-126) U/L Total Protein 6.9 (6.3-8.2) g/dL Albumin 4.3 (3.5-5.0) g/dL Urine Opiates Screen Not Detected (NotDetected) Ur Oxycodone Screen Not Detected (NotDetected) Urine Methadone Screen Not Detected (NotDetected) Ur Barbiturates Screen Not Detected (NotDetected) U Tricyclic Antidepress Not Detected (NotDetected) Ur Phencyclidine Scrn Not Detected (NotDetected) Ur Amphetamines Screen Not Detected (NotDetected) U Methamphetamines Scrn Not Detected (NotDetected) U Benzodiazepines Scrn Not Detected (NotDetected) Urine Cocaine Screen Not Detected (NotDetected) U Marijuana (THC) Screen Not Detected (NotDetected) SARS-CoV-2 (PCR) (Not Detectd) 07/02/24 Range/Units 10:06 WBC (3.8-10.6) k/uL RBC (4.30-5.90) m/uL Hgb (13.0-17.5) gm/dL Hct (39.0-53.0) % MCV (80.0-100.0) fL MCH (25.0-35.0) pg MCHC (31.0-37.0) g/dL RDW (11.5-15.5) % Plt Count (150-450) k/uL MPV Neutrophils % % Lymphocytes % % Monocytes % % Eosinophils % % Basophils % % Neutrophils # (1.3-7.7) k/uL Lymphocytes # (1.0-4.8) k/uL Monocytes # (0-1.0) k/uL Eosinophils # (0-0.7) k/uL Basophils # (0-0.2) k/uL Sodium (137-145) mmol/L Potassium (3.5-5.1) mmol/L Chloride (98-107) mmol/L Carbon Dioxide (22-30) mmol/L Anion Gap mmol/L BUN (9-20) mg/dL Creatinine (0.66-1.25) mg/dL Est GFR (CKD-EPI)AfAm (>60 ml/min/1.73 sqM) Est GFR (CKD-EPI)NonAf (>60 ml/min/1.73 sqM) Glucose (74-99) mg/dL Calcium (8.4-10.2) mg/dL Total Bilirubin (0.2-1.3) mg/dL AST (17-59) U/L ALT (4-49) U/L Alkaline Phosphatase (38-126) U/L Total Protein (6.3-8.2) g/dL Albumin (3.5-5.0) g/dL Urine Opiates Screen (NotDetected) Ur Oxycodone Screen (NotDetected) Urine Methadone Screen (NotDetected) Ur Barbiturates Screen (NotDetected) U Tricyclic Antidepress (NotDetected) Ur Phencyclidine Scrn (NotDetected) Ur Amphetamines Screen (NotDetected) U Methamphetamines Scrn (NotDetected) U Benzodiazepines Scrn (NotDetected) Urine Cocaine Screen (NotDetected) U Marijuana (THC) Screen (NotDetected) SARS-CoV-2 (PCR) Not Detected (Not Detectd) Disposition <Julius Sosa - Last Filed: 07/02/24 11:36> <Heather Choe - Last Filed: 07/03/24 00:57> Clinical Impression: Depression, Suicidal ideation Disposition: TRANSFER TO PSYCH HOSP/UNIT Referrals: Zeke Morales MD [Primary Care Provider] - 1-2 days
[2024-07-02 06:47] VITALS: PULSE 73; RESP 18; TEMP 98.2
[2024-07-02 10:43] LABS: Basophils % (A) 0 %; Eosinophils # (A) 0.3 k/uL (0-0.7); Eosinophils % (A) 4 %; HCT 40.3 % (39.0-53.0); HGB 13.8 gm/dL (13.0-17.5); Lymphocytes # (A) 2.9 k/uL (1.0-4.8); Lymphocytes % (A) 38 %; MCH 30.9 pg (25.0-35.0); MCHC 34.1 g/dL (31.0-37.0); MCV 90.5 fL (80.0-100.0); Mean Platelet Volume 7.2; Monocytes # (A) 0.4 k/uL (0-1.0); Monocytes % (A) 5 %; Neutrophils % (A) 52 %; Platelet Count 430 k/uL (150-450); RBC 4.46 m/uL (4.30-5.90); RDW 12.9 % (11.5-15.5); WBC 7.7 k/uL (3.8-10.6)
[2024-07-02 10:56] LABS: ALT 17 U/L (4-49); AST 24 U/L (17-59); African American GFR (CKD) >90 (>60 ml/min/1.73 sqM); Albumin 4.3 g/dL (3.5-5.0); Alkaline Phosphatase 59 U/L (38-126); Anion Gap 10 mmol/L; Blood Urea Nitrogen 13 mg/dL (9-20); Calcium 9.5 mg/dL (8.4-10.2); Carbon Dioxide 18 mmol/L (22-30); Chloride 113 mmol/L (98-107); Glucose 80 mg/dL (74-99); Non-African American GFR(CKD) >90 (>60 ml/min/1.73 sqM); Potassium 4.1 mmol/L (3.5-5.1); Sodium 141 mmol/L (137-145); Total Bilirubin 0.7 mg/dL (0.2-1.3); Total Protein 6.9 g/dL (6.3-8.2)
[2024-07-02 12:35] VITALS: BP 102/66
== END 2024-07-02 12:35 ==
LOC: EC 16:25
CPT/HCPCS: 36415; 80053; 80306; 82075; 85025; 87635; 99285

== ENCOUNTER 2024-07-10 07:51 | Emergency (ER) | payer OTHER ==
[2024-07-10 08:03] VITALS: RESP 18
--- NOTE | 2024-07-10 08:09 | ED ---
General Adult HPI - General Chief complaint: Extremity Injury, Upper Stated complaint: Left foot pain Time Seen by Provider: 07/10/24 08:01 Source: patient, RN notes reviewed Mode of arrival: EMS Limitations: no limitations - History of Present Illness Initial comments: Patient is a 48-year-old male present to the emergency department with concerns with left foot pain. Patient states he walked from [place] here over the past 2-1/2 days. Patient states he does have some mild chronic left foot pain however this has increased. No direct trauma. No other area of injury or concern. 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 - Related Data Home Medications Medication Instructions Recorded Confirmed Ibuprofen [Motrin] 600 mg PO DIRECTED PRN 05/27/24 05/27/24 Lidocaine 4% Patch 1 patch TRANSDERM DIRECTED 05/27/24 05/27/24 Melatonin 10 mg PO DIRECTED 05/27/24 05/27/24 Nortriptyline [Pamelor] 50 mg PO DIRECTED 05/27/24 05/27/24 Paliperidone IM [Invega Sustenna] 156 mg IM Q28D 05/27/24 05/27/24 Pantoprazole [Protonix] 40 mg PO DIRECTED 05/27/24 05/27/24 lamoTRIgine [LaMICtal] 100 mg PO DIRECTED 05/27/24 05/27/24 Allergies Allergy/AdvReac Type Severity Reaction Status Date / Time No Known Allergies Allergy Verified 07/10/24 07:55 Review of Systems ROS Statement: Those systems with pertinent positive or pertinent negative responses have been documented in the HPI. ROS Other: All systems not noted in ROS Statement are negative. Constitutional: Denies: fever Eyes: Denies: eye pain ENT: Denies: ear pain Respiratory: Denies: cough, dyspnea Cardiovascular: Denies: chest pain Endocrine: Denies: fatigue Gastrointestinal: Denies: abdominal pain Musculoskeletal: Reports: as per HPI Past Medical History Past Medical History: No Reported History History of Any Multi-Drug Resistant Organisms: None Reported Additional Past Surgical History / Comment(s): neck Past Anesthesia/Blood Transfusion Reactions: No Reported Reaction Past Psychological History: Anxiety, Depression Smoking Status: Current some day smoker, Vaper Past Alcohol Use History: Daily, Heavy Past Drug Use History: None Reported General Exam Limitations: no limitations General appearance: alert, in no apparent distress Head exam: Present: normocephalic Eye exam: Present: normal appearance Neck exam: Present: normal inspection Respiratory exam: Present: normal lung sounds bilaterally Cardiovascular Exam: Present: regular rate, normal rhythm Expanded Peripheral pulses: 2+: Dorsalis Pedis (L) GI/Abdominal exam: Present: soft. Absent: tenderness Extremities exam: Present: tenderness (Left midfoot with trace swelling and mild to moderate tenderness. Distally the extremity is neurovascular intact.), normal capillary refill Neurological exam: Present: alert. Absent: motor sensory deficit Psychiatric exam: Present: normal affect, normal mood Skin exam: Present: normal color, other (Old superficial ulcer distal plantar. Minimal ulcer left heel) Course Vital Signs 07/10/24 07:55 Temperature 97.9 F Pulse Rate 79 Respiratory 18 Rate Blood Pressure 112/75 O2 Sat by Pulse 99 Oximetry Medical Decision Making - Medical Decision Making Was pt. sent in by a medical professional or institution (, PA, ROOM ATTENDANTS, urgent care, hospital, or half-way...) When possible be specific @ -No Did you speak to anyone other than the patient for history (EMS, parent, family, police, friend...)? What history was obtained from this source @ -No Did you review nursing and triage notes (agree or disagree)? Why? @ -I reviewed and agree with nursing and triage notes Were old charts reviewed (outside hosp., previous admission, EMS record, old EKG, old radiological studies, urgent care reports/EKG's, half-way records)? Report findings @ -No old charts were reviewed Differential Diagnosis (chest pain, altered mental status, abdominal pain women, abdominal pain men, vaginal bleeding, weakness, fever, dyspnea, syncope, headache, dizziness, GI bleed, back pain, seizure, CVA, palpatations, mental health, musculoskeletal)? @ -Differential Musculoskeletal Muscular strain, contusion, ligament sprain, fracture, arthritis, septic arthritis, bursitis, cellulitis, muscle spasm, nerve compression, DVT, arterial occlusion, herpes zoster, electrolyte abnormality, tumor.... This is not meant to be in all inclusive list EKG interpreted by me (3pts min.). @ -As above X-rays interpreted by me (1pt min.). @ -X-ray left foot does not reveal any acute abnormality. CT interpreted by me (1pt min.). @ -None done U/S interpreted by me (1pt. min.). @ -None done What testing was considered but not performed or refused? (CT, X-rays, U/S, labs)? Why? @ -None What meds were considered but not given or refused? Why? @ -None Did you discuss the management of the patient with other professionals (professionals i.e. , PA, ROOM ATTENDANTS, lab, RT, psych nurse, social media assistant, plant physiology teacher, teacher, press officer, director of casework department)? Give summary @ -No Was smoking cessation discussed for >3mins.? @ -No Was critical care preformed (if so, how long)? @ -No Were there social determinants of health that impacted care today? How? (Homelessness, low income, unemployed, alcoholism, drug addiction, transportation, low edu. Level, literacy, decrease access to med. care, care home, rehab)? @ -No Was there de-escalation of care discussed even if they declined (Discuss DNR or withdrawal of care, Hospice)? DNR status @ -No What co-morbidities impacted this encounter? (DM, HTN, Smoking, COPD, CAD, Cancer, CVA, ARF, Chemo, Hep., AIDS, mental health diagnosis, sleep apnea, morbid obesity)? @ -None Was patient admitted / discharged? Hospital course, mention meds given and route, prescriptions, significant lab abnormalities, going to OR and other pertinent info. @ -Patient presents with foot pain after walking long distance. Exam and x-ray unremarkable. Patient will be discharged and recommended follow-up with primary care. Patient request medication for nausea upon discharge. Undiagnosed new problem with uncertain prognosis? @ -No Drug Therapy requiring intensive monitoring for toxicity (Heparin, Nitro, Insulin, Cardizem)? @ -No Were any procedures done? @ -No Diagnosis/symptom? @ -Left foot pain Acute, or Chronic, or Acute on Chronic? @ -Acute Uncomplicated (without systemic symptoms) or Complicated (systemic symptoms)? @ -Default Side effects of treatment? @ -No Exacerbation, Progression, or Severe Exacerbation? @ -No Poses a threat to life or bodily function? How? (Chest pain, USA, ID, pneumonia, PE, COPD, DKA, ARF, appy, cholecystitis, CVA, Diverticulitis, Homicidal, Suicidal, threat to staff... and all critical care pts) @ -No Disposition Clinical Impression: Foot pain Disposition: HOME SELF-CARE Condition: Stable Instructions (If sedation given, give patient instructions): Arthralgia (ED) Additional Instructions: No excessive walking until foot discomfort improves over the next few days. Ice to affected area. [id number] Tylenol as needed. Return for increased pain, swelling, redness, worsening or changing symptoms or other concerns. Is patient prescribed a controlled substance at d/c from ED?: No Referrals: Jordon Chamorro MD [STAFF PHYSICIAN] - 1-2 days Time of Disposition: 09:33
--- NOTE | 2024-07-10 09:27 | XR ---
EXAMINATION TYPE: XR foot complete 3 views LT DATE OF EXAM: 07/10/2024 Comparison: None Clinical History: 48-year-old male pain Findings: There is a small type I accessory navicular noted. No acute fracture, subluxation, dislocat ion. Impression: No acute osseous abnormality seen. [facility], , 07/10/2024 8:27 AM
[2024-07-10] MEDS: ONDANSETRON ODT 4 MG TAB PO STA (09:34)
[2024-07-10 09:52] VITALS: BP 115/77; PULSE 91; TEMP 98
== END 2024-07-10 09:51 | disposition home or self-care (01) ==
LOC: EC 07:51
CPT/HCPCS: 99283

== ENCOUNTER 2025-04-02 15:52 | Inpatient (IN) | payer OTHER ==
[2025-04-02] MEDS ORDERED: HEPARIN SODIUM 1,000 UN/ML (10ML VL) IV PRN (16:23)
[2025-04-02] MEDS: SODIUM CHLORIDE 0.9% 500 ML 500 ML IV STA (16:35)
[2025-04-02] MEDS: ASPIRIN 81 MG PO STA (16:35)
[2025-04-02 16:37] LABS: Basophils # (A) 0.05 10*3/uL (0.00-0.10); Basophils % (A) 0.5 %; Eosinophils # (A) 0.28 10*3/uL (0.04-0.35); Eosinophils % (A) 2.7 %; HCT 42.9 % (39.6-50.0); HGB 14.5 g/dL (13.0-17.0); Lymphocytes # (A) 2.99 10*3/uL (0.90-5.00); Lymphocytes % (A) 29.0 %; MCH 31.3 pg (27.0-32.0); MCHC 33.8 g/dL (32.0-37.0); MCV 92.7 fL (80.0-97.0); Monocytes # (A) 0.73 10*3/uL (0.20-1.00); Monocytes % (A) 7.1 %; Neutrophils # (A) 6.22 10*3/uL (1.80-7.70); Neutrophils % (A) 60.3 %; Platelet Count 206 10*3/uL (140-440); RBC 4.63 10*6/uL (4.40-5.60); RDW 13.6 % (11.5-14.5); WBC 10.31 10*3/uL (4.50-10.00)
[2025-04-02] MEDS: NITROGLYCERIN SL TABS 0.4 MG TAB SUBLINGUAL STA (16:44)
[2025-04-02 16:46] LABS: INR 1.0 (<1.2); Partial Thromboplastin Time 23.3 sec (22.0-30.0); Prothrombin Time 10.8 sec (10.0-12.5)
--- NOTE | 2025-04-02 16:50 | ED ---
General Adult HPI - General Chief complaint: Dizziness Stated complaint: SOB Time Seen by Provider: 04/02/25 15:55 Source: patient, EMS Mode of arrival: EMS - History of Present Illness Initial comments: Patient is a 49-year-old male past medical history of cigarette smoking, home lessness, alcohol abuse presenting today for chest pain and shortness of breath. Patient states he has had right sided chest tightness over the last 2 to 3 days. Worsens with exertion and has associated shortness of breath. States he cannot walk more than a few feet without becoming short of breath. Today went to donate blood in order to make some money and his blood pressure was noted to be low so he sent to the emergency department. Patient himself denies history of CAD or prior CVA. Patient's father had a heart attack he is unsure of what age. Denies history PE/DVT is not on blood thinners. Takes no medications every day. Drinks daily, stating that he is trying to cut back and drinks about 1 pint of alcohol over the course of a week. Last drink was 2 shots this morning. Currently denies shortness breath at rest. Endorses right sided chest tightness that is nonradiating. Denies hemoptysis. Endorses chronic cough. Denies fevers or chills. Endorsed lightheadedness with ambulation. - Related Data Home Medications Medication Instructions Recorded Confirmed No Known Home Medications 04/02/25 04/02/25 Allergies Allergy/AdvReac Type Severity Reaction Status Date / Time No Known Allergies Allergy Verified 04/02/25 17:45 Review of Systems ROS Statement: Those systems with pertinent positive or pertinent negative responses have been documented in the HPI. ROS Other: All systems not noted in ROS Statement are negative. Past Medical History Past Medical History: No Reported History History of Any Multi-Drug Resistant Organisms: None Reported Additional Past Surgical History / Comment(s): neck Past Anesthesia/Blood Transfusion Reactions: No Reported Reaction Past Psychological History: Anxiety, Depression Smoking Status: Current some day smoker, Vaper Past Alcohol Use History: Daily, Heavy Past Drug Use History: None Reported Course Vital Signs 04/02/25 04/02/25 04/02/25 16:02 16:17 17:23 Temperature 100.5 F H Pulse Rate 120 H 104 H Respiratory 16 20 18 Rate Blood Pressure 98/73 101/64 O2 Sat by Pulse 97 97 Oximetry 04/02/25 04/02/25 04/02/25 18:55 19:54 19:57 Temperature Pulse Rate 104 H 96 90 Respiratory 18 18 Rate Blood Pressure 98/62 98/68 O2 Sat by Pulse 97 98 Oximetry 04/02/25 04/02/25 04/02/25 20:05 21:00 22:03 Temperature 98.7 F Pulse Rate 93 104 H Respiratory 18 Rate Blood Pressure 92/66 O2 Sat by Pulse 97 Oximetry 04/02/25 22:11 Temperature Pulse Rate 103 H Respiratory 16 Rate Blood Pressure 88/59 O2 Sat by Pulse 93 L Oximetry - Reevaluation(s) Reevaluation #1: Pt with troponin 0.077. On reassessment endorses mild improvement in CP. Requested repeat EKG to ensure no evolving changes from recent. 04/02/25 17:23 EKG Findings - EKG Comments: EKG Findings:: 1559, sinus tachycardia, rate 116 bpm, intervals within acceptable limits, normal axis, new T wave inversions in V1, V2 compared to EKG May 2024, question [address] elevation in lead V3 without reciprocal depressions. #2, performed at 1617 due to persistent chest pain, overall unchanged from prior, sinus tachycardia, rate 113 bpm intervals and except limits, normal axis, persistent T wave versions in V1 V2 without new significant ST elevations or depressions Medical Decision Making - Medical Decision Making Was pt. sent in by a medical professional or institution (GAURAV Andre, MACHINE MOLDER SQUEEZE, urgent care, hospital, or senior care...) When possible be specific @ -No Did you speak to anyone other than the patient for history (EMS, parent, family, police, friend...)? What history was obtained from this source @ -No Did you review nursing and triage notes (agree or disagree)? Why? @ -I reviewed nursing and triage notes Were old charts reviewed (outside hosp., previous admission, EMS record, old EKG, old radiological studies, urgent care reports/EKG's, senior care records)? Report findings @ -Medical records reviewed Differential Diagnosis (chest pain, altered mental status, abdominal pain women, abdominal pain men, vaginal bleeding, weakness, fever, dyspnea, syncope, headache, dizziness, GI bleed, back pain, seizure, CVA, palpatations, mental health, musculoskeletal)? Differential Chest Pain: Stable Angina, Unstable Angina, STEMI, NSTEMI Aortic Dissection, pericarditis, pleurisy, chostochondirits, Pneumothorax, Musculoskeletal, Esophageal Spasm GERD, Cholecystitis, Pancreatitis, Zoster, this is not meant to be an all- inclusive list. Differential Dyspnea: Coronary syndrome, arrhythmia, tamponade, asthma, COPD, pulmonary embolism, pneumonia, pneumothorax, pulmonary effusion, anaphylaxis, diabetic ketoacidosis, flailed chest, pulmonary contusion, diaphragmatic rupture, anemia, neuromuscular, this is not meant to be an all-inclusive list. EKG interpreted by me (3pts min.). @ -As above X-rays interpreted by me (1pt min.). @Reviewed chest x-ray see no cardiomegaly, consolidations or pleural effusions CT interpreted by me (1pt min.). @Reviewed CT PE study, shows multiple bilateral pulmonary emboli CT brain reviewed I see no evidence of hemorrhage U/S interpreted by me (1pt. min.). @Ultrasound reviewed, did appear to show DVT within the popliteal vein What testing was considered but not performed or refused? (CT, X-rays, U/S, labs)? Why? @ -None What meds were considered but not given or refused? Why? @ -Antibiotics were considered due to borderline fever, however suspect more likely 2/2 PE given large clot burden Did you discuss the management of the patient with other professionals (professionals i.e. , PA, MACHINE MOLDER SQUEEZE, lab, RT, psych nurse, bilingual social worker, motorcycle fabricator, teacher, correctional officer captain, renal case manager)? Give summary @Case discussed with Dr. Brody, cardiology and EKOS, recs heparin, aware of pt Was smoking cessation discussed for >3mins.? @ -No Was critical care preformed (if so, how long)? yes 45 minutes Were there social determinants of health that impacted care today? How? (Homelessness, low income, unemployed, alcoholism, drug addiction, transportat ion, low edu. Level, literacy, decrease access to med. care, half-way, rehab)? @ alcoholism, homelessness Was there de-escalation of care discussed even if they declined (Discuss DNR or withdrawal of care, Hospice)? @ -No What co-morbidities impacted this encounter? (DM, HTN, Smoking, COPD, CAD, Cancer, CVA, ARF, Chemo, Hep., AIDS, mental health diagnosis, sleep apnea, morbid obesity)? Smoking, alcoholism Was patient admitted / discharged? Hospital course, mention meds given and route, prescriptions, significant lab abnormalities, going to OR and other pertinent info. @ -Admission- 49-year-old gentleman history of smoking, family history ACS presenting today for exertional dyspnea and chest pain. Patient does endorse right-sided chest tightness currently. Patient is tachycardic on arrival with heart rates between 110 and 120. Blood pressure 98/73. He does not appear to be in any acute distress. EKG did show new T wave inversions, no significant additions or reciprocal depressions, case was discussed with Dr. Castillo, due to concerning chest pain and EKG changes, recommends starting heparin, aspirin, treat for ACS. Patient reported to RN that patient had a recent fall and head injury 3 weeks ago. Will obtain CT brain prior to initiating heparin. Denies any headache, residual symptoms or neck pain. Patient's chest pain now radiates to left side, ordered morphine and Zofran. 1 sublingual nitro was given without improvement in pain. Labs are significant for hypomagnesemia magnesium 1.5, hypokalemia potassium 3.3. Heart enzymes as noted below. Patient's ultrasound positive for DVT in the right popliteal vein. CT PE study shows bilateral pulmonary emboli with right heart strain. Patient does have an elevated troponin 0.077, elevated BNP 5240, suspect 2/2 right heart strain. Case was discussed with OSWALDO Meek. Low intensity heparin changed to high intensity . Case discussed with Dr. Martinez, accepts for ICU admission. Discussed with Dr. Gonzalez, kindly accepts pt for admission. Updated pt to findings, agreeable with plan for admit. Undiagnosed new problem with uncertain prognosis? @ -No Drug Therapy requiring intensive monitoring for toxicity (Heparin, Nitro, Insulin, Cardizem)? heparin Were any procedures done? @ -No Diagnosis/symptom? Submassive bilateral PE, acute, DVT, right heart strain, hypomagnesemia, hypokalemia Acute, or Chronic, or Acute on Chronic? @ acute Uncomplicated (without systemic symptoms) or Complicated (systemic symptoms)? @complicated Side effects of treatment? @ -No Exacerbation, Progression, or Severe Exacerbation? @ -No Poses a threat to life or bodily function? How? (Chest pain, USA, MD, pneumonia, PE, COPD, DKA, ARF, appy, cholecystitis, CVA, Diverticulitis, Homicidal, Suicidal, threat to staff... and all critical care pts) @Yes - Lab Data Result diagrams: 04/02/25 16:24 04/02/25 16:24 Lab Results 04/02/25 04/02/25 04/02/25 Range/Units 16:24 16:24 16:24 WBC 10.31 H (4.50-10.00) 10*3/uL RBC 4.63 (4.40-5.60) 10*6/uL Hgb 14.5 (13.0-17.0) g/dL Hct 42.9 (39.6-50.0) % MCV 92.7 (80.0-97.0) fL MCH 31.3 (27.0-32.0) pg MCHC 33.8 (32.0-37.0) g/dL Plt Count 206 (140-440) 10*3/uL MPV 9.5 (9.5-12.2) fL Immature Gran % (Auto) 0.4 % Neutrophils % 60.3 % Lymphocytes % 29.0 % Monocytes % 7.1 % Eosinophils % 2.7 % Basophils % 0.5 % Immature Gran # 0.04 (0.00-0.04) 10*3/uL Neutrophils # 6.22 (1.80-7.70) 10*3/uL Lymphocytes # 2.99 (0.90-5.00) 10*3/uL Monocytes # 0.73 (0.20-1.00) 10*3/uL Eosinophils # 0.28 (0.04-0.35) 10*3/uL Basophils # 0.05 (0.00-0.10) 10*3/uL PT 10.8 (10.0-12.5) sec INR 1.0 (<1.2) APTT 23.3 (22.0-30.0) sec Sodium 138 (137-145) mmol/L Potassium 3.3 L (3.5-5.1) mmol/L Chloride 109 H (98-107) mmol/L Carbon Dioxide 21 L (22-30) mmol/L Anion Gap 8 mmol/L BUN 12 (9-20) mg/dL Creatinine 0.92 (0.66-1.25) mg/dL Est GFR (CKD-EPI)AfAm >90 (>60 ml/min/1.73 sqM) Est GFR (CKD-EPI)NonAf >90 (>60 ml/min/1.73 sqM) Glucose 83 (74-99) mg/dL Calcium 8.1 L (8.4-10.2) mg/dL Magnesium 1.5 L (1.6-2.3) mg/dL Total Bilirubin 0.5 (0.2-1.3) mg/dL AST 18 (17-59) U/L ALT 13 (4-49) U/L Alkaline Phosphatase 64 (38-126) U/L Troponin I (0.000-0.034) ng/mL NT-Pro-B Natriuret Pep 5240 pg/mL Total Protein 5.0 L (6.3-8.2) g/dL Albumin 2.8 L (3.5-5.0) g/dL Lipase 36 (23-300) U/L Serum Alcohol mg/dL 04/02/25 04/02/25 Range/Units 16:24 18:31 WBC (4.50-10.00) 10*3/uL RBC (4.40-5.60) 10*6/uL Hgb (13.0-17.0) g/dL Hct (39.6-50.0) % MCV (80.0-97.0) fL MCH (27.0-32.0) pg MCHC (32.0-37.0) g/dL Plt Count (140-440) 10*3/uL MPV (9.5-12.2) fL Immature Gran % (Auto) % Neutrophils % % Lymphocytes % % Monocytes % % Eosinophils % % Basophils % % Immature Gran # (0.00-0.04) 10*3/uL Neutrophils # (1.80-7.70) 10*3/uL Lymphocytes # (0.90-5.00) 10*3/uL Monocytes # (0.20-1.00) 10*3/uL Eosinophils # (0.04-0.35) 10*3/uL Basophils # (0.00-0.10) 10*3/uL PT (10.0-12.5) sec INR (<1.2) APTT (22.0-30.0) sec Sodium (137-145) mmol/L Potassium (3.5-5.1) mmol/L Chloride (98-107) mmol/L Carbon Dioxide (22-30) mmol/L Anion Gap mmol/L BUN (9-20) mg/dL Creatinine (0.66-1.25) mg/dL Est GFR (CKD-EPI)AfAm (>60 ml/min/1.73 sqM) Est GFR (CKD-EPI)NonAf (>60 ml/min/1.73 sqM) Glucose (74-99) mg/dL Calcium (8.4-10.2) mg/dL Magnesium (1.6-2.3) mg/dL Total Bilirubin (0.2-1.3) mg/dL AST (17-59) U/L ALT (4-49) U/L Alkaline Phosphatase (38-126) U/L Troponin I 0.077 H* (0.000-0.034) ng/mL NT-Pro-B Natriuret Pep pg/mL Total Protein (6.3-8.2) g/dL Albumin (3.5-5.0) g/dL Lipase (23-300) U/L Serum Alcohol <10 mg/dL Disposition Clinical Impression: Bilateral pulmonary embolism Disposition: ADMITTED IP TO THIS [facility] Condition: Serious
[2025-04-02 16:56] LABS: ALT 13 U/L (4-49); AST 18 U/L (17-59); African American GFR (CKD) >90 (>60 ml/min/1.73 sqM); Albumin 2.8 g/dL (3.5-5.0); Alkaline Phosphatase 64 U/L (38-126); Anion Gap 8 mmol/L; Blood Urea Nitrogen 12 mg/dL (9-20); Calcium 8.1 mg/dL (8.4-10.2); Carbon Dioxide 21 mmol/L (22-30); Chloride 109 mmol/L (98-107); Glucose 83 mg/dL (74-99); Lipase 36 U/L (23-300); Magnesium 1.5 mg/dL (1.6-2.3); Non-African American GFR(CKD) >90 (>60 ml/min/1.73 sqM); Potassium 3.3 mmol/L (3.5-5.1); Sodium 138 mmol/L (137-145); Total Protein 5.0 g/dL (6.3-8.2)
[2025-04-02] MEDS: ONDANSETRON 4 MG/2 ML VIAL IVP STA ×2 (16:59→18:44)
[2025-04-02] MEDS: MORPHINE SULFATE 4 MG/ML SYRINGE IVP STA ×2 (17:00→18:45)
[2025-04-02 17:03] LABS: NT-Pro-B-Type Natriuretic Pept 5240 pg/mL
--- NOTE | 2025-04-02 17:19 | XR ---
EXAMINATION TYPE: XR chest 1V portable DATE OF EXAM: 04/02/2025 5:07 PM COMPARISON: None TECHNIQUE: XR chest 1V portable Portable AP radiograph of the chest. CLINICAL INDICATION:Male, 49 years old with history of chest pain; FINDINGS: Lungs/Pleura: There is no evidence of pleural effusion, focal consolidation, or pneumothorax. Pulmonary vascularity: Unremarkable. Heart/mediastinum: Cardiomediastinal silhouette is unremarkable. Musculoskeletal: No acute osseous pathology. Cervical hardware. IMPRESSION: No acute cardiopulmonary disease/process. [facility], , 04/02/2025 5:17 PM
--- NOTE | 2025-04-02 18:00 | US ---
EXAMINATION TYPE: US venous doppler duplex LE RT DATE OF EXAM: 04/02/2025 5:52 PM COMPARISON: NONE CLINICAL INDICATION: Male, 49 years old with history of swell, shortness of breath; Right leg swellin g and SOB TECHNIQUE: The lower extremity deep venous system is examined utilizing real time linear array sonog loraine with graded compression, doppler sonography and color-flow sonography. Grayscale, color doppler , spectral doppler imaging performed of the deep veins of the lower extremities FINDINGS: SIDE PERFORMED: Right VESSELS IMAGED: Common Femoral Vein Deep Femoral Vein Greater Saphenous Vein * Femoral Vein Popliteal Vein Small Saphenous Vein * Proximal Calf Veins (* superficial vessels) Right Leg: Echoes seen from popliteal prox to calf veins with no compressibility and no blood flow. The remaining right lower extremity venous vasculature demonstrates compressibility, color flow and n ormal spectral venous waveforms. IMPRESSION: Acute deep venous thrombosis of the right lower extremity involving the proximal popliteal vein to th e calf veins. Findings communicated to Dr. Chelsea Live MD on 04/02/2025 5:[address] Santiago Charles . [facility], , 04/02/2025 5:58 PM
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
[2025-04-02] MEDS: MAGNESIUM SULFATE-D5W PMX 1 GM in DEXTROSE/WATER 1 100ML.BAG IVPB SCH (18:20)
[2025-04-02] MEDS: NICOTINE 21MG/24HR PATCH TRANSDERM STA (18:22)
--- NOTE | 2025-04-02 18:22 | CT ---
EXAMINATION TYPE: CT chest angio for PE DATE OF EXAM: 04/02/2025 6:08 PM COMPARISON: Plain film same day CLINICAL INDICATION: Male, 49 years old with history of dyspnea w/ exertion. tachy, R. CP; chest pain , SOB TECHNIQUE/CONTRAST: CTA scan of the thorax is performed with IV Contrast, patient injected with 100ml mL of Isovue 370, M IP images are created and reviewed these are created on a separate workstation.. CT DLP: 322.9 mGycm, Automated exposure control for dose reduction was used. FINDINGS: Lungs/Pleura: No evidence of focal consolidation, pleural effusion or pneumothorax. Scattered centril obular and paraseptal emphysema changes throughout the lungs. Airway: Large airways are patent. Heart: Size within normal limits. No significant coronary artery calcifications. Vasculature: There is bilateral filling defects within the pulmonary arterial vasculature involving t he main pulmonary arteries extending to the segmental and subsegmental branches.RV/LV equals 45/25= 1 .8 Mediastinum: No gross evidence of adenopathy. Musculoskeletal: No acute osseous abnormalities Soft Tissues/lymph nodes: Unremarkable. Lower neck: No significant findings. Upper Abdomen: No significant findings. IMPRESSION: 1. Bilateral pulmonary emboli with evidence of right heart strain. RV/LV equals 45/25= 1.8 2. Mild emphysema changes. Follow up recommendations for incidental pulmonary nodules, if there are any, are per [employer] or [employer]. https://radiopaedia.org/articles/pvxhdzgenb-odtzwxw-zfwlauzod-[email or web address]-[email or web address]?lang=us Findings communicated to Chelsea Live MD on 04/02/2025 6:[address] Major Kahnna. [facility], , 04/02/2025 6:20 PM
[2025-04-02] MEDS ORDERED: LORazepam 1 MG/0.5 ML VIAL IV PRN ×2 (18:23)
[2025-04-02] MEDS: POTASSIUM CHLORIDE 20 MEQ in WATER FOR INJECTION 1 100ML.BAG IVPB STA (18:26)
[2025-04-02] MEDS ORDERED: NALOXONE 0.4 MG/ML 1 ML VIAL IV PRN (18:28)
[2025-04-02] MEDS: HEPARIN SODIUM 1,000 UN/ML (10ML VL) IV ONE ×2 (18:32→18:54)
[2025-04-02] MEDS: HEPARIN SOD,PORK IN 0.45% NACL 25,000 UNIT in 0.45% NACL 1 250ML.BAG IV SCH ×2 (18:33→18:53)
[2025-04-02] MEDS ORDERED: Magnesium Replacement Protocol 1 EACH MISC MISCELLANE PRN (18:34)
[2025-04-02] MEDS ORDERED: Potassium Replacement Protocol 1 EACH MISC MISCELLANE PRN (18:34)
[2025-04-02] MEDS ORDERED: Phosphorus Replacement Protoco 1 EACH MISC MISCELLANE PRN (18:34)
[2025-04-02] MEDS: THIAMINE 100 MG/ML 2 ML VIAL IM STA (18:43)
[2025-04-02] MEDS: BUDESONIDE 0.5 MG/2 ML NEBU INHALATION SCH (19:52)
[2025-04-02] MEDS: IPRATROPIUM-ALBUTEROL 3 ML NEB INHALATION SCH (19:52)
[2025-04-02] MEDS: SODIUM CHLORIDE 0.9% 500 ML 500 ML IV ONE (19:55)
[2025-04-02] MEDS: DEXTROSE 5%-0.45% NACL 1,000 ML IV SCH (19:56)
[2025-04-02] MEDS: ACETAMINOPHEN IV (For NPO) 1,000 MG in EMPTY BAG 1 BAG IVPB STA (21:21)
[2025-04-02] MEDS: MORPHINE SULFATE 2 MG/ML SYRINGE IV PRN (23:43)
[2025-04-03] MEDS ORDERED: ACETAMINOPHEN TAB 325 MG TAB PO PRN
--- NOTE | 2025-04-03 00:36 | HP ---
HISTORY AND PHYSICAL HISTORY OF PRESENT ILLNESS: A 49-year-old white male, cigarette smoking, homelessness, alcohol, presented with shortness of breath, chest pain, found to have pulmonary embolism with tightness for the last 2-3 days. Donated blood. His blood pressure was noted to be low, so he was sent to the emergency department. Denies coronary artery disease, CVA. Father had a heart attack. He has chronic shortness of breath denies fever or chills. Chronic cough ALLERGIES: Negative. REVIEW OF SYSTEMS: A 14-point review of systems otherwise negative. PHYSICAL EXAMINATION: VITAL SIGNS: Pulse is 120s, respiratory rate 16-18, blood pressure is 90s-100/60s-70s, O2 CARDIOVASCULAR: S1-S2. LUNGS: Scattered wheeze and rhonchi. HEMATOLOGY: Negative Homans. PSYCH: Fair mood and affect. NEUROLOGIC: Alert and oriented x3. IMPRESSION AND PLAN: positive for DVT in the popliteal vein, DVT, pulmonary embolism, elevated troponin. Continue with heparin, breathing treatments, etc. Prognosis is guarded. MMODL / IJN: [id number] /
[2025-04-03] MEDS: MAGNESIUM SULFATE-D5W PMX 1 GM in DEXTROSE/WATER 1 100ML.BAG IVPB SCH (02:13)
[2025-04-03 05:55] LABS: Basophils # (A) 0.04 10*3/uL (0.00-0.10); Basophils % (A) 0.5 %; Eosinophils # (A) 0.18 10*3/uL (0.04-0.35); Eosinophils % (A) 2.2 %; HCT 39.7 % (39.6-50.0); HGB 13.3 g/dL (13.0-17.0); Lymphocytes # (A) 3.85 10*3/uL (0.90-5.00); Lymphocytes % (A) 47.6 %; MCH 32.2 pg (27.0-32.0); MCHC 33.5 g/dL (32.0-37.0); MCV 96.1 fL (80.0-97.0); Monocytes # (A) 0.64 10*3/uL (0.20-1.00); Monocytes % (A) 7.9 %; Neutrophils # (A) 3.37 10*3/uL (1.80-7.70); Neutrophils % (A) 41.7 %; Platelet Count 163 10*3/uL (140-440); RBC 4.13 10*6/uL (4.40-5.60); RDW 13.6 % (11.5-14.5); WBC 8.09 10*3/uL (4.50-10.00)
[2025-04-03 06:14] LABS: INR 0.9 (<1.2); Prothrombin Time 10.3 sec (10.0-12.5)
[2025-04-03 06:33] LABS: Glucose,Whole Blood 95 mg/dL (70-110)
--- NOTE | 2025-04-03 08:06 | P.CRDCN ---
History of Present Illness Consult date: 04/03/25 History of present illness: History of Present Illness: The patient is a 49-year-old male, homeless, smokes 2 packs a day and drinks about 1 pint of alcohol a week who presented to the emergency room with a 3-day symptoms of progressive dyspnea and episodes of chest discomfort. He was donating plasma and because of his abnormal vitals he was referred to the emergency room. In the emergency room he was noted to have mild troponin and NT proBNP elevation and subsequently was found to have bilateral pulmonary embolism with right DVT in the proximal popliteal to the calf vein. He was started on IV heparin, he is not hemodynamically stable at this time in sinus mechanism with no sinus tachycardia and on room air. He has been complaining of right calf discomfort for few weeks, he denies any injury. He denies any prior cardiac history but has not seen a physician and does not take any medications. He has some dyspnea on exertion related to the smoking with mild cough. He has no PND or orthopnea and no significant peripheral edema. He has no history of drug abuse. Medications: None Review of Systems: Respiratory: He has dyspnea on exertion and occasional cough GI: No nausea or vomiting . No history of peptic ulcer disease. No recent GI bleed. : No hematuria or dysuria. Nervous System: No stroke, prior history of seizure related to withdrawal. Physical Examination: 49-year-old male, alert oriented no apparent distress,Blood pressure 110/60, H eart rate 80 Head: Normocephalic. Eyes: Sclerae nonicteric. Neck: Good carotid upstroke, no bruit, no jugular venous distention. Lungs: Clear to auscultation. Heart: Regular rate and rhythm, S1-S2, no S3, no rub. No murmur. Abdomen: Soft nontender, positive bowel sounds no organomegaly. Extremities: No edema, intact distal pulses. Homans' sign is negative Labs: Hemoglobin 13.3, BUN/creatinine 12 and 0.92. Troponin 0.077, NT proBNP 5240.CT scan of the chest showed bilateral pulmonary embolism with evidence of right heart strain. EKG: Sinus mechanism with T wave inversion in lead V1 and V2 Impression: 1. Acute pulmonary embolism, bilateral with RV strain 2. Troponin elevation and NT proBNP elevation secondary to the embolism 3. Right sided DVT 4. History of chronic tobacco use 5. History of alcohol intake Plan: 1. Continue on IV heparin 2. Obtain an echocardiogram with Doppler 3. Depending on the results of the echo consider thrombolysis or thrombectomy 4. I discussed those findings and recommendations with the patient 5. Depending on the results of the testing further recommendations will be made, thank you for this consult we will follow with you. Past Medical History Past Medical History: No Reported History History of Any Multi-Drug Resistant Organisms: None Reported Additional Past Surgical History / Comment(s): neck Past Anesthesia/Blood Transfusion Reactions: No Reported Reaction Past Psychological History: Anxiety, Depression Smoking Status: Current some day smoker, Vaper Past Alcohol Use History: Daily, Heavy Past Drug Use History: None Reported Medications and Allergies Home Medications Medication Instructions Recorded Confirmed Type No Known Home Medications 04/02/25 04/02/25 History Allergies Allergy/AdvReac Type Severity Reaction Status Date / Time No Known Allergies Allergy Verified 04/02/25 17:45 Physical Exam Vitals: Vital Signs Temp Pulse Resp BP Pulse Ox 04/03/25 06:22 98.1 F 87 16 91/67 95 04/03/25 06:00 83 16 92/68 04/03/25 05:00 91 20 92/68 04/03/25 04:40 78 16 88/61 95 04/03/25 02:40 92 16 90/61 94 L 04/03/25 01:08 96 82/64 94 L 04/03/25 00:00 95 14 88/61 95 04/02/25 23:00 92 14 81/61 94 L 04/02/25 22:11 103 H 16 88/59 93 L 04/02/25 22:03 98.7 F 04/02/25 21:00 104 H 18 92/66 97 04/02/25 20:05 93 04/02/25 19:57 90 18 98/68 98 04/02/25 19:54 96 04/02/25 18:55 104 H 18 98/62 97 04/02/25 17:23 100.5 F H 104 H 18 101/64 97 04/02/25 16:17 20 04/02/25 16:02 120 H 16 98/73 97 Intake and Output 04/02/25 04/03/25 04/03/25 22:59 06:59 14:59 Intake Total 67.348 Balance 67.348 Intake: Intake, IV Titration 67.348 Amount Heparin Sod,Pork in 0.45% 67.348 NaCl 25,000 unit In 0.45 % NaCl 1 250ml.bag @ 18 UNITS/KG/HR 11.92 mls/hr IV .[id number] [facility] Rx#: [id number] Other: Weight 66.224 kg Results 04/03/25 05:35 04/02/25 16:24 Cardiac Enzymes 04/02/25 04/02/25 Range/Units 16:24 16:24 AST 18 (17-59) U/L Troponin I 0.077 H* (0.000-0.034) ng/mL Coagulation 04/02/25 04/02/25 04/03/25 Range/Units 16:24 23:28 05:35 PT 10.8 10.3 (10.0-12.5) sec APTT 23.3 60.3 H (22.0-30.0) sec 04/03/25 Range/Units 05:35 PT (10.0-12.5) sec APTT 44.4 H (22.0-30.0) sec CBC 04/02/25 04/03/25 Range/Units 16:24 05:35 WBC 10.31 H 8.09 (4.50-10.00) 10*3/uL RBC 4.63 4.13 L (4.40-5.60) 10*6/uL Hgb 14.5 13.3 (13.0-17.0) g/dL Hct 42.9 39.7 (39.6-50.0) % Plt Count 206 163 (140-440) 10*3/uL Comprehensive Metabolic Panel 04/02/25 Range/Units 16:24 Sodium 138 (137-145) mmol/L Potassium 3.3 L (3.5-5.1) mmol/L Chloride 109 H (98-107) mmol/L Carbon Dioxide 21 L (22-30) mmol/L BUN 12 (9-20) mg/dL Creatinine 0.92 (0.66-1.25) mg/dL Glucose 83 (74-99) mg/dL Calcium 8.1 L (8.4-10.2) mg/dL AST 18 (17-59) U/L ALT 13 (4-49) U/L Alkaline Phosphatase 64 (38-126) U/L Total Protein 5.0 L (6.3-8.2) g/dL Albumin 2.8 L (3.5-5.0) g/dL Current Medications Generic Name Dose Route Start Last Admin Trade Name Freq PRN Reason Stop Dose Admin Acetaminophen 650 mg 04/03/25 00:00 Acetaminophen Tab 325 Mg Tab PO Q4HR PRN Fever and/or Mild Pain Albuterol/Ipratropium 3 ml 04/02/25 18:34 Ipratropium-Albuterol 3 Ml Neb INHALATION RT-Q4H PRN Shortness Of Breath Or Wheezing Albuterol/Ipratropium 3 ml 04/02/25 20:00 04/02/25 19:52 Ipratropium-Albuterol 3 Ml Neb INHALATION 3 ml RT-QID SUSU Administration Budesonide 0.5 mg 04/02/25 20:00 04/02/25 19:52 Budesonide 0.5 Mg/2 Ml Nebu INHALATION 0.5 mg RT-BID SUSU Administration Heparin Sodium (Porcine) 0 unit 04/02/25 18:14 Heparin Sodium 1,000 Un/Ml (10ml Vl) IV PER PROTOCOL PRN Low PTT Protocol Heparin Sodium/Sodium Chloride 250 mls @ 11.92 mls/hr 04/02/25 18:15 04/03/25 00:12 25,000 unit/ Sodium Chloride IV 18 units/kg/hr .[id number] SUSU 11.92 mls/hr Titration Protocol 18 UNITS/KG/HR Dextrose/Sodium Chloride 1,000 mls @ 75 mls/hr 04/02/25 18:30 04/02/25 19:56 Dextrose 5%-1/2ns Iv Soln IV 75 mls/hr .[id number] SUSU Administration Lorazepam 1 mg 04/02/25 18:23 Lorazepam 1 Mg/0.5 Ml Vial IV Q1HR PRN CIWA 10 to 15 Lorazepam 1 mg 04/02/25 18:23 Lorazepam 1 Mg/0.5 Ml Vial IV Q2HR PRN CIWA 8 or 9 Lorazepam 2 mg 04/02/25 18:23 Lorazepam 1 Mg/0.5 Ml Vial IV 04/04/25 18:24 Q10M PRN CIWA 16 or higher Miscellaneous Information 1 each 04/02/25 18:34 Potassium Replacement Protocol 1 Each Misc MISCELLANE DAILY PRN Per Protocol Miscellaneous Information 1 each 04/02/25 18:34 Magnesium Replacement Protocol 1 Each Misc MISCELLANE DAILY PRN Per Protocol Protocol Miscellaneous Information 1 each 04/02/25 18:34 Phosphorus Replacement Protoco 1 Each Misc MISCELLANE DAILY PRN Per Protocol Protocol Morphine Sulfate 2 mg 04/02/25 18:34 04/03/25 06:18 Morphine Sulfate 2 Mg/Ml Syringe IV 2 mg Q2HR PRN Administration Moderate Pain (Scale 4 to 6) Morphine Sulfate 4 mg 04/02/25 18:34 Morphine Sulfate 4 Mg/Ml Syringe IV Q3HR PRN Severe Pain (Scale 7 to 10) Naloxone HCl 0.2 mg 04/02/25 18:28 Naloxone 0.4 Mg/Ml 1 Ml Vial IV Q2M PRN Opioid Reversal Pantoprazole Sodium 40 mg 04/03/25 09:00 Pantoprazole 40 Mg/10 Ml Vial IV DAILY SUSU Thiamine HCl 100 mg 04/03/25 09:00 Thiamine 100 Mg Tab PO DAILY SUSU Intake and Output 04/02/25 04/03/25 04/03/25 22:59 06:59 14:59 Intake Total 67.348 Balance 67.348 Intake: Intake, IV Titration 67.348 Amount Heparin Sod,Pork in 0.45% 67.348 NaCl 25,000 unit In 0.45 % NaCl 1 250ml.bag @ 18 UNITS/KG/HR 11.92 mls/hr IV .[id number] [facility] Rx#: [id number] Other: Weight 66.224 kg 04/03/25 05:35 04/02/25 16:24
[2025-04-03] MEDS: THIAMINE 100 MG TAB PO SCH (08:40)
[2025-04-03] MEDS: PANTOPRAZOLE 40 MG/10 ML VIAL IV SCH (08:41)
[2025-04-03] MEDS: MORPHINE SULFATE 4 MG/ML SYRINGE IV PRN (10:40)
--- NOTE | 2025-04-03 12:05 | CA ---
Transthoracic Echo Report Name: Major Lui Age: 49 Gender: M : 1975 Exam Date: 04/03/2025 09:40 Exam Location: [place] [facility] Ht (in): 72 Wt (lb): 146 Ordering Physician: Juventino Brody MD ([id number]) Attending/Referring Phys: Liquid Loader Rosario Westbrook RDCS Procedure CPT: Indications: PE Cardiac Hx: Technical Quality: Good Contrast 1: Total Dose (mL): Contrast 2: Total Dose (mL): MEASUREMENTS (Male / Female) Normal Values 2D ECHO LV Diastolic Diameter PLAX 3.4 cm 4.2 - 5.9 / 3.9 - 5.3 cm LV Systolic Diameter PLAX 2.3 cm IVS Diastolic Thickness 0.8 cm 0.6 - 1.0 / 0.6 - 0.9 cm LVPW Diastolic Thickness 1.0 cm 0.6 - 1.0 / 0.6 - 0.9 cm LV Relative Wall Thickness 0.5 RV Internal Dim ED PLAX 3.2 cm LA Systolic Diameter LX 3.0 cm 3.0 - 4.0 / 2.7 - 3.8 cm LV Diastolic Volume MOD BP 25.2 cm??? 67 - 155 / 56 - 104 cm??? LV Systolic Volume MOD BP 8.6 cm??? 22 - 58 / 19 - 49 cm??? LV Ejection Fraction MOD BP 65.8 % >= 55 % LV Cardiac Index MOD BP 727.3 cm???/min???m??? LV Diastolic Volume MOD 4C 22.4 cm??? LV Systolic Volume MOD 4C 9.1 cm??? LV Ejection Fraction MOD 4C 59.6 % LV Cardiac Index MOD 4C 585.6 cm???/min???m??? LV Diastolic Length 4C 7.3 cm LV Systolic Length 4C 5.9 cm LV Diastolic Volume MOD 2C 26.1 cm??? LV Systolic Volume MOD 2C 8.3 cm??? LV Ejection Fraction MOD 2C 68.2 % LV Cardiac Index MOD 2C 780.5 cm???/min???m??? LV Diastolic Length 2C 6.7 cm LV Systolic Length 2C 5.9 cm LA Volume 28.8 cm??? 18 - 58 / 22 - 52 cm??? LA Volume Index 15.8 cm???/m??? 16 - 28 cm???/m??? M-MODE Aortic Root Diameter MM 2.4 cm LA Systolic Diameter MM 2.8 cm LA Ao Ratio MM 1.1 AV Cusp Separation MM 1.6 cm DOPPLER MV Area PHT 3.4 cm??? Mitral E Point Velocity 60.7 cm/s Mitral A Point Velocity 74.7 cm/s Mitral E to A Ratio 0.8 MV Deceleration Time 224.3 ms TR Peak Velocity 383.4 cm/s TR Peak Gradient 58.8 mmHg Right Ventricular Systolic Press 71.4 mmHg FINDINGS Left Ventricle Left ventricular ejection fraction is estimated at 55-60 %. No obvious regional wall motion abnormalities. Left ventricular cavity size normal. Left ventricular wall thickness normal. Right Ventricle Severe right ventricular dilatation. Reduced right ventricular global systolic function. Severe pulmonary hypertension. Right ventricular systolic pressure estimated at 72 mmHg. Right Atrium Moderate right atrial dilatation. Left Atrium Normal left atrial size. Mitral Valve Structurally normal mitral valve. Mild mitral regurgitation. No mitral stenosis. Aortic Valve Trileaflet aortic valve. No aortic valve stenosis or regurgitation. Tricuspid Valve Structurally normal tricuspid valve. Moderate tricuspid regurgitation. No tricuspid stenosis. Pulmonic Valve Structurally normal pulmonic valve. Trace pulmonic regurgitation. No pulmonic stenosis. Pericardium Small pericardial effusion. Pericardial effusion located anteriorly. Left pleural effusion. Aorta Normal size aortic root and proximal ascending aorta. CONCLUSIONS 1. Normal ventricle size and systolic function 2. Dilated right ventricle with global hypokinesis 3. Mild mitral regurgitation 4. Moderate tricuspid regurgitation with severe pulmonary hypertension Previewed by: Dr. Juventino Brody MD (Electronically Signed) Final Date: 03 April 2025 12:04
--- NOTE | 2025-04-03 12:23 | P.CNPUL ---
History of Present Illness Consult date: 04/03/25 Reason for consult: dyspnea, chest pain History of present illness: This is a 49-year-old male patient, homeless, stays at a local park and has a legal guardian. The patient smokes around 2 packs of cigarettes a day. No other medical history. Presented to the hospital because of 3-day history of progressive dyspnea and pleuritic chest pain. He complained of those symptoms while donating plasma and the patient was advised to come in to emergency department and upon arrival, the patient was given a CTA of the chest which showed bilateral pulmonary embolism with evidence of RV strain. RV to LV ratio was 1.8. There was also background emphysema. Doppler of the lower extremity showed positive DVT involving the right lower extremity proximal popliteal vein to calf veins. The blood work showed a troponin of 0.07 and a proBNP level of 5240. Echocardiogram done on 04/03/2025 showed a normal ejection fraction of 55 to 60%. Severe RV dilatation, reduced RV global systolic function and severe right ventricular systolic pressure elevation estimated to be 72 mmHg. The white cell count of 8 with a heme of 13.3 and the platelet count of 163. Electrolytes are all normal. Normal renal function. Serum alcohol level less than 10. No recent surgeries. No previous history of DVT or pulmonary embolism. No substance abuse. No trauma. He is in normal sinus rhythm and the rate is controlled and the patient is currently on room air oxygen with a pulse ox of 94 to 96%. Hemodynamically stable with a stable blood pressure. No sig nificant hypotension. Currently on IV heparin. Review of Systems Constitutional: Reports as per HPI Eyes: denies as per HPI, denies blurred vision, denies bulging eye, denies decreased vision, denies diplopia, denies discharge, denies dry eye, denies irritation, denies itching, denies pain, denies photophobia, denies loss of peripheral vision, denies loss of vision, denies tunnel vision/blind spots Ears: deny: decreased hearing, ear discharge, earache, tinnitus Ears, nose, mouth and throat: Reports as per HPI Breasts: absent: as per HPI, gynecomastia Cardiovascular: Reports chest pain, Reports decreased exercise tolerance, Rep orts dyspnea on exertion Respiratory: Reports dyspnea Gastrointestinal: Reports as per HPI Genitourinary: Reports as per HPI Musculoskeletal: Reports as per HPI, Reports shooting leg pain Musculoskeletal: absent: ankle pain, ankle stiffness, ankle swelling, as per HPI, elbow pain, elbow stiffness, elbow swelling, foot pain, foot stiffness, foot swelling, hand pain, hand stiffness, hand swelling, hip pain, hip stiffness, hip swelling, knee pain, knee stiffness, knee swelling, shoulder pain, shoulder stiffness, shoulder swelling, wrist pain, wrist stiffness, wrist swelling Integumentary: Reports as per HPI Neurological: Reports as per HPI Psychiatric: Reports as per HPI Endocrine: Reports as per HPI Hematologic/Lymphatic: Reports as per HPI Allergic/Immunologic: Reports as per HPI Past Medical History Past Medical History: No Reported History, COPD Additional Past Medical History / Comment(s): smoker, 2 PPD History of Any Multi-Drug Resistant Organisms: None Reported Additional Past Surgical History / Comment(s): neck Past Anesthesia/Blood Transfusion Reactions: No Reported Reaction Past Psychological History: Anxiety, Depression Smoking Status: Current some day smoker, Vaper Past Alcohol Use History: Daily, Heavy Past Drug Use History: None Reported Medications and Allergies Home Medications Medication Instructions Recorded Confirmed Type No Known Home Medications 04/02/25 04/02/25 History Allergies Allergy/AdvReac Type Severity Reaction Status Date / Time No Known Allergies Allergy Verified 04/02/25 17:45 Physical Exam Vitals: Vital Signs Temp Pulse Resp BP Pulse Ox 04/03/25 08:00 81 19 110/60 93 L 04/03/25 07:54 85 15 110/60 97 04/03/25 06:22 98.1 F 87 16 91/67 95 04/03/25 06:00 83 16 92/68 04/03/25 05:00 91 20 92/68 04/03/25 04:40 78 16 88/61 95 04/03/25 02:40 92 16 90/61 94 L 04/03/25 01:08 96 82/64 94 L 04/03/25 00:00 95 14 88/61 95 04/02/25 23:00 92 14 81/61 94 L 04/02/25 22:11 103 H 16 88/59 93 L 04/02/25 22:03 98.7 F 04/02/25 21:00 104 H 18 92/66 97 04/02/25 20:05 93 04/02/25 19:57 90 18 98/68 98 04/02/25 19:54 96 04/02/25 18:55 104 H 18 98/62 97 04/02/25 17:23 100.5 F H 104 H 18 101/64 97 04/02/25 16:17 20 04/02/25 16:02 120 H 16 98/73 97 Intake and Output 04/02/25 04/03/25 04/03/25 22:59 06:59 14:59 Intake Total 67.348 Balance 67.348 Intake: Intake, IV Titration 67.348 Amount Heparin Sod,Pork in 0.45% 67.348 NaCl 25,000 unit In 0.45 % NaCl 1 250ml.bag @ 18 UNITS/KG/HR 11.92 mls/hr IV .[id number] [facility] Rx#: [id number] Other: Weight 66.224 kg The patient appeared well nourished and normally developed. Vital signs as doc umented. RA 02 Head exam is unremarkable. No scleral icterus or corneal arcus noted. Neck is without jugular venous distension, thyromegaly, or carotid bruits. Carotid upstrokes are brisk bilaterally. Lungs are clear to auscultation and percussion. Cardiac exam reveals the PMI to be normally sized and situated. Rhythm is regular. First and second heart sounds normal. No murmurs, rubs or gallops. Abdominal exam reveals normal bowel sounds, no masses, no organomegaly and no aortic enlargement. Extremities are nonedematous and both femoral and pedal pulses are normal. Examination of the skin revealed no evidence of significant rashes, suspicious appearing nevi or other concerning lesions. Neurologically, the patient is awake and alert and the patient does not have any focal neurological deficit. Cranial nerves are essentially intact. Results - Laboratory Findings CBC and BMP: 04/03/25 05:35 04/02/25 16:24 PT/INR, D-dimer PT 10.3 sec (10.0-12.5) 04/03/25 05:35 INR 0.9 (<1.2) 04/03/25 05:35 Abnormal lab findings: Abnormal Labs 04/02/25 04/02/25 04/02/25 16:24 16:24 16:24 WBC 10.31 H RBC MCH APTT Potassium 3.3 L Chloride 109 H Carbon Dioxide 21 L Calcium 8.1 L Magnesium 1.5 L Troponin I 0.077 H* Total Protein 5.0 L Albumin 2.8 L 04/02/25 04/03/25 04/03/25 23:28 05:35 05:35 WBC RBC 4.13 L MCH 32.2 H APTT 60.3 H 44.4 H Potassium Chloride Carbon Dioxide Calcium Magnesium Troponin I Total Protein Albumin - Diagnostic Findings Chest x-ray: image reviewed CT scan - chest: image reviewed Assessment and Plan Plan: Acute submassive pulmonary embolism with RV strain, and severe pulm hypertension estimated PA pressure of 72 and RV dilatation. Troponins are mildly elevated and proBNP level is also elevated secondary to pulmonary embolism. This is an unprovoked event Acute shortness of breath/pleuritic chest pain secondary to above Right lower extremity proximal popliteal DVT extending to the calf Sinus tachycardia, improved and the patient's current rhythm is NSR COPD attribute to chronic smoking the patient has 2 pack-a-day smoking history Chronic smoker Homeless Plan Clinically and hemodynamically stable and the patient is currently on room air oxygen Concern for submassive pulmonary embolism. Will discuss the findings with cardiology. May benefit from clot thrombectomy/intra-arterial intra thrombolytic therapy with EKOS Patient is currently on room air oxygen Keep the patient in ICU for now. Will continue to follow.
[2025-04-03] MEDS: NICOTINE 21MG/24HR PATCH TRANSDERM SCH (17:59)
[2025-04-04 03:11] LABS: HCT 39.2 % (39.6-50.0); HGB 13.2 g/dL (13.0-17.0); MCH 31.9 pg (27.0-32.0); MCHC 33.7 g/dL (32.0-37.0); MCV 94.7 fL (80.0-97.0); Platelet Count 165 10*3/uL (140-440); RBC 4.14 10*6/uL (4.40-5.60); RDW 13.3 % (11.5-14.5); WBC 7.08 10*3/uL (4.50-10.00)
[2025-04-04 03:22] LABS: African American GFR (CKD) >90 (>60 ml/min/1.73 sqM); Anion Gap 7 mmol/L; Blood Urea Nitrogen 7 mg/dL (9-20); Calcium 8.7 mg/dL (8.4-10.2); Carbon Dioxide 22 mmol/L (22-30); Chloride 107 mmol/L (98-107); Glucose 99 mg/dL (74-99); Magnesium 1.8 mg/dL (1.6-2.3); Non-African American GFR(CKD) >90 (>60 ml/min/1.73 sqM); Potassium 3.8 mmol/L (3.5-5.1); Sodium 136 mmol/L (137-145)
[2025-04-04] MEDS: POTASSIUM CHLORIDE ER 20 MEQ TAB.ER PO SCH (03:44)
[2025-04-04] MEDS: MAGNESIUM SULFATE-D5W PMX 1 GM in DEXTROSE/WATER 1 100ML.BAG IVPB ONE (03:45)
[2025-04-04] MEDS: HEPARIN SODIUM 1,000 UN/ML (10ML VL) IV PRN (04:12)
--- NOTE | 2025-04-04 09:12 | P.PN ---
Subjective Progress Note Date: 04/04/25 PROGRESS NOTE The patient is a 49-year-old male, homeless, smokes 2 packs a day and drinks about 1 pint of alcohol a week who presented to the emergency room with a 3-day symptoms of progressive dyspnea and episodes of chest discomfort. He was donating plasma and because of his abnormal vitals he was referred to the emergency room. In the emergency room he was noted to have mild troponin and NT proBNP elevation and subsequently was found to have bilateral pulmonary embolism with right DVT in the proximal popliteal to the calf vein. He was started on IV heparin, he is not hemodynamically stable at this time in sinus mechanism with no sinus tachycardia and on room air. He has been complaining of right calf discomfort for few weeks, he denies any injury. He denies any prior cardiac history but has not seen a physician and does not take any medications. He has some dyspnea on exertion related to the smoking with mild cough. He has no PND or orthopnea and no significant peripheral edema. He has no history of drug abuse. April 04: The patient feels better this morning, his breathing is better. He continues to have mild chest discomfort, significantly improved. He is hemodynamically st able on no vasopressors and no evidence of sinus tachycardia. He has good oxygen saturation on room air. His echocardiogram showed dilated right ventricle with evidence of pulmonary hypertension. Medications: IV heparin PHYSICAL EXAMINATION: Blood pressure 103/70 heart rate 70 LUNGS: Clear to auscultation HEART: Regular rate and rhythm, S1, S2. No S3. Holosystolic murmur ABDOMEN: Soft, nontender, no organomegaly EXTREMETIES: No edema LAB: Hemoglobin 13.2, BUN 7, creatinine 0.87. IMPRESSION: 1. Status post pulmonary embolism and DVT with pulmonary hypertension. Hemodynamically stable and no evidence of hypoxemia 2. History of chronic tobacco use 3. History of alcohol intake PLAN: 1. Patient stable hemodynamically 2. Change to oral Eliquis and stop heparin 3. Discussed with the patient the overall valve status and situation. Discussed with him the importance of alcohol cessation and medical compliance. 4. Social service evaluation, the patient will contact his legal guardian. 5. Depending on his progress further recommendations will be made Objective - Vital Signs Vital signs: Vital Signs Temp 98.1 F 04/04/25 04:00 Pulse 74 04/04/25 08:00 Resp 18 04/04/25 08:00 BP 103/74 04/04/25 08:00 Pulse Ox 93 L 04/04/25 08:00 FiO2 Intake & Output 04/03/25 04/04/25 04/04/25 18:59 06:59 18:59 Intake Total 774.640 1722.9 150 Output Total 400 1200 400 Balance 594.264 -136.1 -250 Weight 66.224 kg 69.2 kg Intake: IV 825 900 150 Dextrose 5%-0.45% NaCl 1, 825 900 150 000 ml @ 75 mls/hr IV . [id number] [facility] Rx#:[id number] Intake, IV Titration 169.264 163.9 Amount Heparin Sod,Pork in 0.45% 169.264 163.9 NaCl 25,000 unit In 0.45 % NaCl 1 250ml.bag @ 18 UNITS/KG/HR 11.92 mls/hr IV .[id number] [facility] Rx#: [id number] Output: Urine 400 1200 400 Other: Voiding Method Urinal Urinal Urinal - Labs CBC & Chem 7: 04/04/25 03:02 04/04/25 06:57 Labs: Abnormal Lab Results - Last 24 Hours (Table) 04/04/25 04/04/25 04/04/25 Range/Units 02:55 03:00 03:02 RBC 4.14 L (4.40-5.60) 10*6/uL Hct 39.2 L (39.6-50.0) % APTT 38.6 H (22.0-30.0) sec Sodium 136 L (137-145) mmol/L BUN 7 L (9-20) mg/dL Microbiology - Last 24 Hours (Table) 04/02/25 18:31 Blood Culture - Preliminary Blood
[2025-04-04] MEDS: APIXABAN 5 MG TAB PO SCH (09:22)
[2025-04-04] MEDS: IPRATROPIUM-ALBUTEROL 3 ML NEB INHALATION PRN (09:59)
--- NOTE | 2025-04-04 11:17 | P.PN ---
Subjective Progress Note Date: 04/04/25 This is a 49-year-old male patient, homeless, stays [place] a local park and has a legal guardian. The patient smokes around 2 packs of cigarettes a day. No other medical history. Presented to the hospital because of 3-day history of progressive dyspnea and pleuritic chest pain. He complained of those symptoms while donating plasma and the patient was advised to come in to emergency department and upon arrival, the patient was given a CTA of the chest which showed bilateral pulmonary embolism with evidence of RV strain. RV to LV ratio was 1.8. There was also background emphysema. Doppler of the lower extremity showed positive DVT involving the right lower extremity proximal popliteal vein to calf veins. The blood work showed a troponin of 0.07 and a proBNP level of 5240. Echocardiogram done on 04/03/2025 showed a normal ejection fraction of 55 to 60%. Severe RV dilatation, reduced RV global systolic function and severe right ventricular systolic pressure elevation estimated to be 72 mmHg. The white cell count of 8 with a heme of 13.3 and the platelet count of 163. Electrolytes are all normal. Normal renal function. Serum alcohol level less than 10. No recent surgeries. No previous history of DVT or pulmonary embolism. No substance abuse. No trauma. He is in normal sinus rhythm and the rate is controlled and the patient is currently on room air oxygen with a pulse ox of 94 to 96%. Hemodynamically stable with a stable blood pressure. No significant hypotension. Currently on IV heparin. On 04/04/2025, the patient is being seen for a follow-up. Doing well. Hemodyn amically stable. No sinus tachycardia. No hypoxemia the patient is currently on room air oxygen. Pleurisy has improved. No chest pain. No leg pain. The patient remains on IV heparin and the patient will be taken off the IV heparin and started on anticoagulation with Eliquis. We are working with case management to make sure that the patient is able to obtain his anticoagulation outpatient basis. As stated, the patient is homeless. Echocardiogram showed significant pulm hypertension with a PA pressure of 71. Nevertheless, no intervention was recommended regarding submassive pulmonary embolism Objective - Vital Signs Vital signs: Vital Signs Temp 98.1 F 04/04/25 04:00 Pulse 65 04/04/25 07:00 Resp 15 04/04/25 07:00 BP 104/71 04/04/25 07:00 Pulse Ox 95 04/04/25 07:00 FiO2 Intake & Output 04/03/25 04/04/25 04/04/25 18:59 06:59 18:59 Intake Total 650.520 2651.9 150 Output Total 400 1200 400 Balance 594.264 -136.1 -250 Weight 66.224 kg 69.2 kg Intake: IV 825 900 150 Dextrose 5%-0.45% NaCl 1, 825 900 150 000 ml @ 75 mls/hr IV . [id number] [facility] Rx#:[id number] Intake, IV Titration 169.264 163.9 Amount Heparin Sod,Pork in 0.45% 169.264 163.9 NaCl 25,000 unit In 0.45 % NaCl 1 250ml.bag @ 18 UNITS/KG/HR 11.92 mls/hr IV .[id number] [facility] Rx#: [id number] Output: Urine 400 1200 400 Other: Voiding Method Urinal Urinal - Exam The patient appeared well nourished and normally developed. Vital signs as documented. Head exam is unremarkable. No scleral icterus or corneal arcus noted. Neck is without jugular venous distension, thyromegaly, or carotid bruits. Carotid upstrokes are brisk bilaterally. Lungs are clear to auscultation and percussion. Cardiac exam reveals the PMI to be normally sized and situated. Rhythm is regular. First and second heart sounds normal. No murmurs, rubs or gallops. Abdominal exam reveals normal bowel sounds, no masses, no organomegaly and no aortic enlargement. Extremities are nonedematous and both femoral and pedal pulses are normal. Examination of the skin revealed no evidence of significant rashes, suspicious appearing nevi or other concerning lesions. Neurologically, the patient is awake and alert and the patient does not have any focal neurological deficit. Cranial nerves are essentially intact. - Labs CBC & Chem 7: 04/04/25 03:02 04/04/25 06:57 Labs: Abnormal Lab Results - Last 24 Hours (Table) 04/04/25 04/04/25 04/04/25 Range/Units 02:55 03:00 03:02 RBC 4.14 L (4.40-5.60) 10*6/uL Hct 39.2 L (39.6-50.0) % APTT 38.6 H (22.0-30.0) sec Sodium 136 L (137-145) mmol/L BUN 7 L (9-20) mg/dL Microbiology - Last 24 Hours (Table) 04/02/25 18:31 Blood Culture - Preliminary Blood Assessment and Plan Plan: Acute submassive pulmonary embolism with RV strain, and severe pulm hypertension estimated PA pressure of 72 and RV dilatation. Troponins are mildly elevated and proBNP level is also elevated secondary to pulmonary embolism. This is an unprovoked event, clinically stable, hemodynamically stable, no hypoxemia, no sinus tachycardia, no hypotension and no chest pain this morning. Acute shortness of breath/pleuritic chest pain secondary to above, improved Right lower extremity proximal popliteal DVT extending to the calf, improved and the patient is asymptomatic Sinus tachycardia, improved and the patient's current rhythm is NSR COPD attribute to chronic smoking the patient has 2 pack-a-day smoking history Chronic smoker Homeless Plan Clinically and hemodynamically stable and the patient is currently on room air oxygen Concern for submassive pulmonary embolism. Will discuss the findings with cardiology. No intervention was recommended by cardiology. Patient is currently on room air oxygen Start the patient anticoagulation with Eliquis. Discontinued IV heparin. Work with case management to arrange outpatient living situation and anticoagulation.
[2025-04-04] MEDS: LORazepam 1 MG/0.5 ML VIAL IV PRN (20:55)
[2025-04-05 06:08] LABS: Basophils # (A) 0.04 10*3/uL (0.00-0.10); Basophils % (A) 0.7 %; Eosinophils # (A) 0.14 10*3/uL (0.04-0.35); Eosinophils % (A) 2.6 %; HCT 37.0 % (39.6-50.0); HGB 12.6 g/dL (13.0-17.0); Lymphocytes # (A) 1.75 10*3/uL (0.90-5.00); Lymphocytes % (A) 32.2 %; MCH 32.6 pg (27.0-32.0); MCHC 34.1 g/dL (32.0-37.0); MCV 95.9 fL (80.0-97.0); Monocytes # (A) 0.30 10*3/uL (0.20-1.00); Monocytes % (A) 5.5 %; Neutrophils # (A) 3.19 10*3/uL (1.80-7.70); Neutrophils % (A) 58.6 %; Platelet Count 194 10*3/uL (140-440); RBC 3.86 10*6/uL (4.40-5.60); RDW 13.4 % (11.5-14.5); WBC 5.44 10*3/uL (4.50-10.00)
[2025-04-05 06:39] LABS: African American GFR (CKD) >90 (>60 ml/min/1.73 sqM); Anion Gap 7 mmol/L; Blood Urea Nitrogen 8 mg/dL (9-20); Calcium 8.9 mg/dL (8.4-10.2); Carbon Dioxide 23 mmol/L (22-30); Chloride 109 mmol/L (98-107); Glucose 95 mg/dL (74-99); Magnesium 1.7 mg/dL (1.6-2.3); Non-African American GFR(CKD) >90 (>60 ml/min/1.73 sqM); Potassium 3.8 mmol/L (3.5-5.1); Sodium 139 mmol/L (137-145)
[2025-04-05] MEDS: POTASSIUM CHLORIDE ER 20 MEQ TAB.ER PO SCH (07:12)
[2025-04-05 09:07] VITALS: BMI 20.1
--- NOTE | 2025-04-05 10:23 | P.PN ---
Subjective PROGRESS NOTE The patient is a 49-year-old male, homeless, smokes 2 packs a day and drinks about 1 pint of alcohol a week who presented to the emergency room with a 3-day symptoms of progressive dyspnea and episodes of chest discomfort. He was rangel ting plasma and because of his abnormal vitals he was referred to the emergency room. In the emergency room he was noted to have mild troponin and NT proBNP elevation and subsequently was found to have bilateral pulmonary embolism with right DVT in the proximal popliteal to the calf vein. He was started on IV heparin, he is not hemodynamically stable at this time in sinus mechanism with no sinus tachycardia and on room air. He has been complaining of right calf discomfort for few weeks, he denies any injury. He denies any prior cardiac history but has not seen a physician and does not take any medications. He has some dyspnea on exertion related to the smoking with mild cough. He has no PND or orthopnea and no significant peripheral edema. He has no history of drug abuse. April 04: The patient feels better this morning, his breathing is better. He continues to have mild chest discomfort, significantly improved. He is hemodynamically stable on no vasopressors and no evidence of sinus tachycardia. He has good oxygen saturation on room air. His echocardiogram showed dilated right ventricle with evidence of pulmonary hypertension. 04/05 Patient seen and examined. Patient having mild chest discomfort however predominantly better. Denies any fevers or chills. Has a mild cough when he gets up and walks. Blood pressures in the 100s over 60s and heart rates 80s to 100 however somewhat related to patient withdrawing. Medications: IV heparin PHYSICAL EXAMINATION: Blood pressure 103/70 heart rate 70 LUNGS: Clear to auscultation HEART: Regular rate and rhythm, S1, S2. No S3. Holosystolic murmur ABDOMEN: Soft, nontender, no organomegaly EXTREMETIES: No edema IMPRESSION: 1. Status post pulmonary embolism and DVT with pulmonary hypertension. Hemodynamically stable and no evidence of hypoxemia 2. History of chronic tobacco use 3. History of alcohol intake 4. Sinus tachycardia there is more related to patient withdrawing PLAN: Continue with current regimen. Continue with anticoagulation. Sinus tachycardia pairs more related to withdrawals. Patient appears stable for discharge home from a cardiology standpoint. Objective - Vital Signs Vital signs: Vital Signs Temp 98.2 F 04/05/25 08:00 Pulse 99 04/05/25 10:00 Resp 17 04/05/25 10:00 BP 99/66 04/05/25 10:00 Pulse Ox 94 L 04/05/25 10:00 FiO2 Intake & Output 04/04/25 04/05/25 04/05/25 18:59 06:59 18:59 Intake Total 2145 480 520 Output Total 400 600 680 Balance 1745 -120 -160 Weight 67.4 kg 67.4 kg Intake: IV 225 Dextrose 5%-0.45% NaCl 1, 225 000 ml @ 75 mls/hr IV . [id number] [facility] Rx#:[id number] Oral 1920 480 520 Output: Urine 400 600 680 Other: Voiding Method Urinal Toilet Toilet # Voids 1 1 # Bowel Movements 0 - Labs CBC & Chem 7: 04/05/25 05:21 04/05/25 05:21 Labs: Abnormal Lab Results - Last 24 Hours (Table) 04/05/25 04/05/25 Range/Units 05:21 05:21 RBC 3.86 L (4.40-5.60) 10*6/uL Hgb 12.6 L (13.0-17.0) g/dL Hct 37.0 L (39.6-50.0) % MCH 32.6 H (27.0-32.0) pg Chloride 109 H (98-107) mmol/L BUN 8 L (9-20) mg/dL Microbiology - Last 24 Hours (Table) 04/02/25 18:31 Blood Culture - Preliminary Blood
--- NOTE | 2025-04-05 11:50 | P.PN ---
Subjective Progress Note Date: 04/05/25 Principal diagnosis: Acute pulmonary embolism, and acute DVT right lower extremity. This is a 49-year-old male patient, homeless, stays [place] a local park and has a legal guardian. The patient smokes around 2 packs of cigarettes a day. No other medical history. Presented to the hospital because of 3-day history of progressive dyspnea and pleuritic chest pain. He complained of those symptoms while donating plasma and the patient was advised to come in to emergency department and upon arrival, the patient was given a CTA of the chest which showed bilateral pulmonary embolism with evidence of RV strain. RV to LV ratio was 1.8. There was also background emphysema. Doppler of the lower extremity showed positive DVT involving the right lower extremity proximal popliteal vein to calf veins. The blood work showed a troponin of 0.07 and a proBNP level of 5240. Echocardiogram done on 04/03/2025 showed a normal ejection fraction of 55 to 60%. Severe RV dilatation, reduced RV global systolic function and severe right ventricular systolic pressure elevation estimated to be 72 mmHg. The white cell count of 8 with a heme of 13.3 and the platelet count of 163. Electrolytes are all normal. Normal renal function. Serum alcohol level less than 10. No recent surgeries. No previous history of DVT or pulmonary embolism. No substance abuse. No trauma. He is in normal sinus rhythm and the rate is controlled and the patient is currently on room air oxygen with a pulse ox of 94 to 96%. Hemodynamically stable with a stable blood pressure. No significant hypotension. Currently on IV heparin. On 04/04/2025, the patient is being seen for a follow-up. Doing well. Hemodynamically stable. No sinus tachycardia. No hypoxemia the patient is currently on room air oxygen. Pleurisy has improved. No chest pain. No leg pain. The patient remains on IV heparin and the patient will be taken off the IV heparin and started on anticoagulation with Eliquis. We are working with case management to make sure that the patient is able to obtain his anticoagulation outpatient basis. As stated, the patient is homeless. Echocardiogram showed significant pulm hypertension with a PA pressure of 71. Nevertheless, no intervention was recommended regarding submassive pulmonary embolism Seen today on 04/05/2025, patient is in the ICU, asymptomatic, no cough no wheezi ng or shortness of breath, hemodynamically stable, he is now anticoagulated with Eliquis. Minimal chest discomfort, overall significantly improved no fever no chills, he has a bit of a cough, and he is hemodynamically stable. WBC count is 5.4 hemoglobin 12.6 electrolytes are normal renal profile is normal Objective - Vital Signs Vital signs: Vital Signs Temp 98.2 F 04/05/25 08:00 Pulse 84 04/05/25 11:00 Resp 17 04/05/25 11:00 BP 94/60 04/05/25 11:00 Pulse Ox 94 L 04/05/25 11:00 FiO2 Intake & Output 04/04/25 04/05/25 04/05/25 18:59 06:59 18:59 Intake Total 2145 480 520 Output Total 400 600 680 Balance 1745 -120 -160 Weight 67.4 kg 67.4 kg Intake: IV 225 Dextrose 5%-0.45% NaCl 1, 225 000 ml @ 75 mls/hr IV . [id number] [facility] Rx#:[id number] Oral 1920 480 520 Output: Urine 400 600 680 Other: Voiding Method Urinal Toilet Toilet # Voids 1 1 # Bowel Movements 0 - Exam Physical exam revealed 49-year-old white male in no distress, on room air. Head: Atraumatic, normocephalic. EENT: Neck supple no neck masses no thyromegaly, no stridor. Cardiac: Distant S1-S2, no S3 gallop, no murmur. Pulmonary: Clear breath sound bilaterally no crackles rhonchi or wheezes Abdomen: Soft nontender no megaly no rebound no guarding Extremities: Slight tenderness and swelling noted in the right calf region, feels warm to touch. Good pulses bilaterally. Neurologic: Alert oriented x 3 no focal deficit Psychiatric: Normal mood affect and no mental status examination. Skin: No rashes - Labs CBC & Chem 7: 04/05/25 05:21 04/05/25 05:21 Labs: Abnormal Lab Results - Last 24 Hours (Table) 04/05/25 04/05/25 Range/Units 05:21 05:21 RBC 3.86 L (4.40-5.60) 10*6/uL Hgb 12.6 L (13.0-17.0) g/dL Hct 37.0 L (39.6-50.0) % MCH 32.6 H (27.0-32.0) pg Chloride 109 H (98-107) mmol/L BUN 8 L (9-20) mg/dL Microbiology - Last 24 Hours (Table) 04/02/25 18:31 Blood Culture - Preliminary Blood Assessment and Plan Assessment: Impression: Acute submassive pulmonary embolism with RV strain, and severe pulm hypertension estimated PA pressure of 72 and RV dilatation. Troponins are mildly elevated and proBNP level is also elevated secondary to pulmonary embolism. This is an unprovoked event, clinically stable, hemodynamically stable, no hypoxemia, no sinus tachycardia, no hypotension and no chest pain this morning. Acute shortness of breath/pleuritic chest pain secondary to above, improved Right lower extremity proximal popliteal DVT extending to the calf, improved and the patient is asymptomatic Sinus tachycardia, improved and the patient's current rhythm is NSR COPD attribute to chronic smoking the patient has 2 pack-a-day smoking history Chronic smoker Recommendation Continue present supportive care measures Continue Eliquis Case management to address outpatient living situation and anticoagulation Will clear the patient to be transferred out of the ICU to cardiac floor. Will continue to follow, will clear for discharge once cleared by cardiology. Time with Patient: Less than 30
[2025-04-05 17:33] VITALS: BP 126/79; PULSE 95; RESP 18; TEMP 98.9
[2025-04-05] MEDS ORDERED: SYMBICORT 160-4.5 MCG INHALER INHALATION SCH (20:00)
== END 2025-04-05 17:12 | disposition home or self-care (01) | DRG 134 ==
LOC: EC 15:52 → 2SICU 18:36
PROVIDERS: ADMIT Family Medicine; ATTEND Family Medicine
DX: I26.99 Other pulmonary embolism without acute cor pulmonale (principal); F17.210 Nicotine dependence, cigarettes, uncomplicated; I27.20 Pulmonary hypertension, unspecified; I82.431 Acute embolism and thrombosis of right popliteal vein; J44.9 Chronic obstructive pulmonary disease, unspecified; J43.9 Emphysema, unspecified; F17.290 Nicotine dependence, other tobacco product, uncomplicated; F10.10 Alcohol abuse, uncomplicated; F32.A Depression, unspecified; F41.9 Anxiety disorder, unspecified; Z79.51 Long term (current) use of inhaled steroids; Z59.00 Homelessness unspecified
CPT/HCPCS: 36415; 70450; 71045; 71275; 80048; 80053; 80320; 83690; 83735; 83880; 84132; 84484; 85025; 85027; 85610; 85730; 87040; 93005; 93306; 94640; 96361; 96365; 96366; 96367; 96368; 96372; 96375; 96376; 99291